=== PATIENT | male | born 1940 | race Caucasian/White ===

== ENCOUNTER 2017-04-01 09:25 | Inpatient (IN) | payer OTHER, MEDICARE ==
[2017-04-01] VITALS (15 sets, daily range): BP systolic 118–143; BP diastolic 73–98; PULSE 64–85; RESP 16–20; TEMP 98–98.5; O2SAT 89–99
[~2017-04-01] VITALS: Ht 160 cm; Wt 79.5 kg
--- NOTE | 2017-04-01 10:09 | RADRPT ---
EXAM DATE/TIME: 04/01/2017 09:58 [place] COMPARISON: No previous studies available for comparison. INDICATIONS : Short of breath, Weakness MEDICAL HISTORY : told he has a heart blockage, nuclear med scan SURGICAL HISTORY : CABG. ENCOUNTER: Initial ACUITY: 1 day PAIN SCORE: 0/10 LOCATION: Bilateral chest FINDINGS: Portable AP view of the chest demonstrates mildly enlarged cardiac silhouette in this patient post me shanika sternotomy and CABG. There are calcified nodules in the right upper and right lower lung zone an d possibly in the left midlung zone as well. There is mild interstitial prominence in the lower lung zones. No effusion or pneumothorax is present. CONCLUSION: 1. Interstitial prominence in the lower lung zones bilaterally could be related to atelectasis or cou ld represent mild interstitial edema. 2. Mildly enlarged cardiac silhouette in this patient post CABG. 3. Multiple nodules likely representing granulomas from prior granulomatous infection. Jez Gonzalez MD on April 01, 2017 at 10:06 Board Certified Radiologist. This report was verified electronically.
[2017-04-01 10:30] LABS: AUTOMATED NEUTROPHIL # 4.8 TH/MM3 (1.8-7.7); BASOPHIL # 0.1 TH/MM3 (0-0.2); EOSINOPHIL # 0.1 TH/MM3 (0-0.4); EOSINOPHIL % 1.1 % (0.0-4.0); HEMATOCRIT 39.8 % (39.0-51.0); HEMO FLAGS DIFF FINAL; LYMPH % 25.4 % (9.0-44.0); LYMPHOCYTE # 1.9 TH/MM3 (1.0-4.8); MEAN CELL VOLUME 88.7 FL (80.0-100.0); MEAN CORPUSCULAR HGB CONC 34.9 % (32.0-36.0); MONO % 9.2 % (0.0-8.0); NEUT % 63.3 % (16.0-70.0); PLATELET COUNT 238 TH/MM3 (150-450); RED BLOOD COUNT 4.49 MIL/MM3 (4.50-5.90); RED CELL DISTRIBUTION WIDTH 13.2 % (11.6-17.2); WHITE BLOOD COUNT 7.5 TH/MM3 (4.0-11.0)
[2017-04-01 10:38] LABS: APTT (PATIENT) 31.9 SEC (24.3-30.1); INTERNATIONAL NORMALIZED RATIO 1.1 RATIO; PROTHROMBIN TIME - PATIENT 12.2 SEC (9.8-11.6)
[2017-04-01] MEDS ORDERED: ENAL20TA PO (10:39)
[2017-04-01] MEDS ORDERED: NITR1SUB3 SL (10:39)
[2017-04-01] MEDS ORDERED: CLON0.1T PO (10:39)
[2017-04-01] MEDS ORDERED: CLON0.5T PO (10:39)
[2017-04-01] MEDS ORDERED: MAPA500T PO (10:39)
[2017-04-01] MEDS ORDERED: VERA80TA PO (10:39)
[2017-04-01] MEDS ORDERED: ASPI81CH CHEW (10:39)
[2017-04-01] MEDS ORDERED: SENN8.6T81 PO (10:39)
[2017-04-01] MEDS ORDERED: PLAV75TA29 PO (10:39)
[2017-04-01] MEDS ORDERED: METF1000 PO (10:39)
[2017-04-01 10:53] LABS: ANION GAP 10 MEQ/L (5-15); BICARBONATE 21.4 MEQ/L (21.0-32.0); BLOOD UREA NITROGEN 9 MG/DL (7-18); CHLORIDE 106 MEQ/L (98-107); GLOMERULAR FILTRATION RATE 68 ML/MIN (>89); POTASSIUM 4.2 MEQ/L (3.5-5.1); SODIUM (NA) 137 MEQ/L (136-145)
[2017-04-01 10:57] LABS: CREATINE KINASE 108 U/L (39-308)
[2017-04-01 11:12] LABS: CKMB 2.9 NG/ML (0.5-3.6)
[2017-04-01] MEDS ORDERED: HEPARIN-D5W 25,000 U/250 ML 250 ML IV ONE (11:15)
[2017-04-01] MEDS ORDERED: HEPARIN SODIUM - IV 10,000 UNITS/10 ML VIAL IV ONE (11:15)
[2017-04-01] MEDS ORDERED: NITROGLYCERIN-D5W 50 MG/250 ML 250 ML IV PRN (11:15)
--- NOTE | 2017-04-01 11:36 | PD ---
HPI Chief Complaint: Chest Pain Time Seen by Provider: 09:45 Travel History International Travel<30 days: No Contact w/Intl Traveler<30days: No Traveled to known affect area: No History of Present Illness HPI 76-year-old male came to the emergency room after he was asked by his solder sprayer to come to the ER to possibly have a cardiac catheterization. Patient says that he's been having progressive symptoms of chest pain and shortness of breath upon exertion thus worsening. Patient says lately even taking a few steps makes his symptoms come. He had a stress test 2 weeks ago that he failed. He sees Dr. Chatterjee as his solder sprayer. When I was talking to him he said he was chest pain-free but he said as soon as he would stand up and started walking the pain would come back. No history of syncopal episode. Patient has had cardiac bypass 15-20 years ago. Last time he was in [place] was in 1983. There was no old EKG to compare. Vital signs were otherwise stable. [facility] Past Medical History Narrative Medical List of his past medical, surgical, social and family history is reviewed from the nursing note. Hx Anticoagulant Therapy: Yes (PLAVIX) Cardiac Catheterization: Yes (X1) Cardiovascular Problems: Yes (DE) Coronary Artery Disease: Yes Diabetes: Yes Patient Takes Glucophage: Yes Diminished Hearing: Yes (hearing aids) Hypertension: Yes Myocardial Infarction: Yes (X1 IN 2008) Tetanus Vaccination: < 5 Years Influenza Vaccination: Yes Past Surgical History Coronary Artery Bypass Graft: Yes (X4 VESSELS) Social History Alcohol Use: No Tobacco Use: No Substance Use: No Allergies-Medications (Allergen,Severity, Reaction): Coded Allergies: Sulfa (Sulfonamide Antibiotics) (Verified Allergy, Severe, Hives, 04/01/17 ) hydrocodone (Verified Adverse Reaction, Severe, Hallucinations, 04/01/17) metoprolol (Verified Adverse Reaction, Severe, Joint Pain, 04/01/17) niacin (Verified Adverse Reaction, Severe, Chest Pain, 04/01/17) potassium chloride (Verified Adverse Reaction, Severe, Chest Pain, ) Bxmuydv-Izx-Aet Reductase Inhibitor (Verified Adverse Reaction, Intermediate, Dehydration, 04/01/17) amlodipine (Verified Adverse Reaction, Intermediate, Joint Pain, 04/01/17) cholecalciferol (vitamin D3) (Verified Adverse Reaction, Unknown, 04/01/17 ) Uncoded Allergies: MULTIVITAMIN (Adverse Reaction, Intermediate, Migraine, 04/01/17) Comments List of his allergies reviewed from the nursing note. Reported Meds & Prescriptions Reported Meds & Active Scripts Active Reported Clonazepam 0.5 Mg Tab 0.5 Mg PO BID Nitroglycerin SL (Nitroglycerin) 0.4 Mg Subl 0.4 Mg SL DIRECTED PRN ONE TABLET UNDER THE TONGUE NEEDED FOR CHEST PAIN, MAY REPEAT EVERY FIVE MINUTES FOR A TOTAL OF 3 DOSES OR CALL 911 IF NO RELIEF Mapap (Acetaminophen) 500 Mg Tab 500 Mg PO Q4-6H PRN Clonidine (Clonidine HCl) 0.1 Mg Tab 0.1 Mg PO BID Sennosides 8.6 Mg Tab 8.6 Mg PO BID Enalapril (Enalapril Maleate) 20 Mg Tab 20 Mg PO DAILY Aspirin 81 Mg Chew 81 Mg CHEW DAILY Verapamil (Verapamil HCl) 80 Mg Tab 80 Mg PO BID Metformin (Metformin HCl) 1,000 Mg Tab 1,000 Mg PO HS Plavix (Clopidogrel Bisulfate) 75 Mg Tab 75 Mg PO HS Narrative Medication List of his home medications reviewed from the nursing note. Review of Systems Except as stated in HPI: all other systems reviewed are Neg Cardiovascular: Positive: Chest Pain or Discomfort, Dyspnea on exertion Physical Exam Narrative GENERAL: Awake, alert, no obvious distal SKIN: Focused skin assessment warm/dry. HEAD: Atraumatic. Normocephalic. EYES: Pupils equal and round. No scleral icterus. No injection or drainage. ENT: No nasal bleeding or discharge. Mucous membranes pink and moist. NECK: Trachea midline. No JVD. CARDIOVASCULAR: Regular rate and rhythm. No murmur appreciated. RESPIRATORY: No accessory muscle use. Bibasilar crackles GASTROINTESTINAL: Abdomen soft, non-tender, nondistended. Hepatic and splenic margins not palpable. MUSCULOSKELETAL: No obvious deformities. No clubbing. No cyanosis. No edema. NEUROLOGICAL: Awake and alert. No obvious cranial nerve deficits. Motor grossly within normal limits. Normal speech. PSYCHIATRIC: Appropriate mood and affect; insight and judgment normal. Data Data Last Documented VS Vital Signs Date Time Temp Pulse Resp B/P (MAP) Pulse Ox O2 Delivery O2 Flow Rate FiO2 04/01/17 10:44 73 16 140/84 (102) 96 Room Air 04/01/17 09:27 98.4 Orders Orders Electrocardiogram (04/01/17 09:45) Basic Metabolic Panel (Bmp) (04/01/17 09:45) Ckmb (Isoenzyme) Profile (04/01/17 09:45) Complete Blood Count With Diff (04/01/17 09:45) Magnesium (Mg) (04/01/17 09:45) Prothrombin Time / Inr (Pt) (04/01/17 09:45) Act Partial Throm Time (Ptt) (04/01/17 09:45) Troponin I (04/01/17 09:45) Chest, Single Ap (04/01/17 09:45) Ecg Monitoring (04/01/17 09:45) Bilateral Bp Monitoring (04/01/17 09:45) Iv Access Insert/Monitor (04/01/17 09:45) Oximetry (04/01/17 09:45) Oxygen Administration (04/01/17 09:45) ^ Saline Lock (04/01/17 09:47) CKMB (04/01/17 10:10) CKMB% (04/01/17 10:10) Heparin Infusion PIO.Q1H (04/01/17 11:05) Heparin Inj (Heparin Inj) (04/01/17 11:15) Heparin Inj (Heparin Inj) (04/01/17 17:15) Heparin Inj (Heparin Inj) (04/01/17 17:15) Heparin-D5w 25,000 U/250 Ml (Heparin-D5w (04/01/17 11:15) Act Partial Throm Time (Ptt) (04/01/17 11:05) Cbc No Diff, Includes Plts (04/01/17 11:05) Cbc No Diff, Includes Plts (04/04/17 06:00) Act Partial Throm Time (Ptt) (04/01/17 18:05) Occult Blood (Hemoccult) Stool (04/01/17 11:05) Nitroglycerin-D5w 50 Mg/250 Ml (Nitrogly (04/01/17 11:15) Labs Laboratory Tests Test 04/01/17 10:10 White Blood Count 7.5 TH/MM3 Red Blood Count 4.49 MIL/MM3 Hemoglobin 13.9 GM/DL Hematocrit 39.8 % Mean Corpuscular Volume 88.7 FL Mean Corpuscular Hemoglobin 31.0 PG Mean Corpuscular Hemoglobin Concent 34.9 % Red Cell Distribution Width 13.2 % Platelet Count 238 TH/MM3 Mean Platelet Volume 7.3 FL Neutrophils (%) (Auto) 63.3 % Lymphocytes (%) (Auto) 25.4 % Monocytes (%) (Auto) 9.2 % Eosinophils (%) (Auto) 1.1 % Basophils (%) (Auto) 1.0 % Neutrophils # (Auto) 4.8 TH/MM3 Lymphocytes # (Auto) 1.9 TH/MM3 Monocytes # (Auto) 0.7 TH/MM3 Eosinophils # (Auto) 0.1 TH/MM3 Basophils # (Auto) 0.1 TH/MM3 CBC Comment DIFF FINAL Differential Comment Prothrombin Time 12.2 SEC Prothromb Time International Ratio 1.1 RATIO Activated Partial Thromboplast Time 31.9 SEC Blood Urea Nitrogen 9 MG/DL Creatinine 1.07 MG/DL Random Glucose 108 MG/DL Calcium Level 8.9 MG/DL Magnesium Level 2.0 MG/DL Sodium Level 137 MEQ/L Potassium Level 4.2 MEQ/L Chloride Level 106 MEQ/L Carbon Dioxide Level 21.4 MEQ/L Anion Gap 10 MEQ/L Estimat Glomerular Filtration Rate 68 ML/MIN Total Creatine Kinase 108 U/L Creatine Kinase MB 2.9 NG/ML Troponin I 0.60 NG/ML MDM Medical Decision Making Medical Screen Exam Complete: Yes Emergency Medical Condition: Yes Medical Record Reviewed: Yes Interpretation(s) Twelve-lead EKG was reviewed by me. Normal sinus rhythm, normal axis, possible left bundle branch block, inferior T wave inversions. Heart rate of 69 bpm. Differential Diagnosis Stable angina, non-STEMI, ACS Narrative Course 11:34 AM blood test shows elevated troponin. I have contacted Dr. Chatterjee by sending a text electronically. He responded and I have made him aware of the elevated troponin. Patient was started on heparin bolus and drip and nitro drip. Awaiting for the hospitalist to call back for admission. Patient should be admitted to the CICU. Rest of the blood test results are within normal limits. Chest x-ray suggestive of some fluid overload especially in the bases were it clinically correlates with the crackles I had heard. I'll give him 40 mg of IV Lasix as well. Patient had already taken aspirin at home today. Critical Care Narrative Aggregate critical care time was 45 minutes. Time to perform other separately billable procedures was not included in the critical care time. My time did not include minutes spent treating any other patients simultaneously or on activities that did not directly contribute to the patient's treatment. The services I provided to this patient were to treat and/or prevent clinically significant deterioration that could result in: Non-STEMI, heparin bolus and drip, nitro drip I provided critical care services requiring my management, as noted below: Chart data review, documentation time, medication orders and management, vital sign assessments/reviewing monitor data, ordering and reviewing lab tests, ordering and interpreting/reviewing x-rays and diagnostic studies, care of the patient and discussion of the patient with the admitting physicians. Procedures EKG Prior to Arrival: No Diagnosis Primary Impression: Non-STEMI (non-ST elevated myocardial infarction) Additional Impression: CHF (congestive heart failure) Qualified Codes: I50.9 - Heart failure, unspecified Admitting Information Admitting Physician Requests: Debra Larry MD Apr 01, 2017 11:36
[2017-04-01] MEDS ORDERED: FUROSEMIDE 40 MG/4 ML VIAL IV PUSH ONE (12:15)
[2017-04-01] MEDS ORDERED: ALPRAZolam 0.5 MG TAB PO ONE (12:15)
[2017-04-01] MEDS ORDERED: SODIUM CHLORIDE 0.9% FLUSH 10 ML FLUSH IV FLUSH PRN (12:15)
[2017-04-01] MEDS ORDERED: GLUCAGON 1 MG/ML VIAL OTHER PRN (15:00)
[2017-04-01] MEDS ORDERED: DEXTROSE 50% IN WATER 50 ML VIAL(D50) IV PUSH PRN (15:00)
--- NOTE | 2017-04-01 15:00 | HHI.HP ---
HPI Service [facility] Primary Care Physician Non-Staff Admission Diagnosis non-STEMI, CHF Diagnoses: Chief Complaint: Shortness of breath and chest pain with minimal exertion. Sent in by human resources psychologist. Travel History International Travel<30 Days: No Contact w/Intl Traveler <30 Da: No Traveled to Known Affected Are: No History of Present Illness 76-year-old male with a medical history significant for coronary artery disease status post CABG, diabetes, hypertension who presented to the hospital with complaint of worsening shortness of breath and chest pain with minimal activity. The patient reports he started having chest discomfort and shortness of breath with activities about a month ago but it has been increasing in severity. He has taken nitroglycerin with some relief. His symptoms became worse today and he called his human resources psychologist office who referred him to the emergency room. He is chest pain-free at rest but gets significant chest pressure and shortness of breath with minimal activities, even with light walking. Evaluation in the emergency room revealed elevated cardiac enzymes. Review of Systems Constitutional: DENIES: Fever, Chills Respiratory: COMPLAINS OF: Shortness of breath, DENIES: Cough, Wheezing Cardiovascular: COMPLAINS OF: Chest pain, Dyspnea on Exertion, Orthopnea Except as stated in HPI: all other systems reviewed are Neg Past Family Social History Past Medical History Hypertension Coronary artery disease status post CABG in 2008 Diabetes Past Surgical History CABG Reported Medications Reported Meds & Active Scripts Active Reported Clonazepam 0.5 Mg Tab 0.5 Mg PO BID Nitroglycerin SL (Nitroglycerin) 0.4 Mg Subl 0.4 Mg SL DIRECTED PRN ONE TABLET UNDER THE TONGUE NEEDED FOR CHEST PAIN, MAY REPEAT EVERY FIVE MINUTES FOR A TOTAL OF 3 DOSES OR CALL 911 IF NO RELIEF Mapap (Acetaminophen) 500 Mg Tab 500 Mg PO Q4-6H PRN Clonidine (Clonidine HCl) 0.1 Mg Tab 0.1 Mg PO BID as needed for SBP greater than 160. Sennosides 8.6 Mg Tab 8.6 Mg PO BID Enalapril (Enalapril Maleate) 20 Mg Tab 20 Mg PO DAILY Aspirin 81 Mg Chew 81 Mg CHEW DAILY Verapamil (Verapamil HCl) 80 Mg Tab 80 Mg PO BID Metformin (Metformin HCl) 1,000 Mg Tab 1,000 Mg PO HS Plavix (Clopidogrel Bisulfate) 75 Mg Tab 75 Mg PO HS Allergies: Coded Allergies: Sulfa (Sulfonamide Antibiotics) (Verified Allergy, Severe, Hives, 04/01/17 ) hydrocodone (Verified Adverse Reaction, Severe, Hallucinations, 04/01/17) metoprolol (Verified Adverse Reaction, Severe, Joint Pain, 04/01/17) niacin (Verified Adverse Reaction, Severe, Chest Pain, 04/01/17) potassium chloride (Verified Adverse Reaction, Severe, Chest Pain, ) Crvpmga-Fso-Xbt Reductase Inhibitor (Verified Adverse Reaction, Intermediate, Dehydration, 04/01/17) amlodipine (Verified Adverse Reaction, Intermediate, Joint Pain, 04/01/17) cholecalciferol (vitamin D3) (Verified Adverse Reaction, Unknown, 04/01/17 ) Uncoded Allergies: MULTIVITAMIN (Adverse Reaction, Intermediate, Migraine, 04/01/17) Family History Father with history of stroke Mother with history of heart disease Social History Patient does not smoke tobacco or use illicit drugs. He reports that he likes to drink beer sometimes 2-3 a day but hasn't had anything to drink for the past week. Physical Exam Vital Signs Vital Signs Date Time Temp Pulse Resp B/P (MAP) Pulse Ox O2 Delivery O2 Flow Rate FiO2 04/01/17 14:31 68 16 121/73 (89) 99 Room Air 04/01/17 13:59 95 21 04/01/17 13:43 70 16 139/83 (101) 95 Room Air 04/01/17 12:30 68 20 137/81 (99) 96 Room Air 04/01/17 11:43 75 143/84 04/01/17 11:36 73 16 143/84 (103) 96 Room Air 04/01/17 10:44 73 16 140/84 (102) 96 Room Air 04/01/17 10:10 20 94 Room Air 04/01/17 09:27 98.4 85 16 143/98 (113) 95 Physical Exam GENERAL: This is a well-nourished, well-developed patient, in no apparent distress. EYES: Pupils equal round and reactive. Extraocular motions intact. No scleral icterus. No injection or drainage. ENT: Nose without bleeding, purulent drainage or septal hematoma. Throat without erythema, tonsillar hypertrophy or exudate. Uvula midline. Airway patent. NECK: Trachea midline. No JVD or lymphadenopathy. Supple, nontender, no meningeal signs. CARDIOVASCULAR: 3/6 CORNELL murmur best heard over the right upper sternal border. Regular rate and rhythm without murmurs, gallops, or rubs. RESPIRATORY: Clear to auscultation. Breath sounds equal bilaterally. No wheezes , rales, or rhonchi. GASTROINTESTINAL: Abdomen soft, non-tender, nondistended. No hepato-splenomegaly , or palpable masses. No guarding. MUSCULOSKELETAL: Extremities without clubbing, cyanosis, or edema. No joint tenderness, effusion, or edema noted. NEUROLOGICAL: Awake and alert. Cranial nerves II through XII intact. Motor and sensory grossly within normal limits. Five out of 5 muscle strength in all muscle groups. Normal speech. Laboratory Laboratory Tests Test 04/01/17 10:10 White Blood Count 7.5 Red Blood Count 4.49 Hemoglobin 13.9 Hematocrit 39.8 Mean Corpuscular Volume 88.7 Mean Corpuscular Hemoglobin 31.0 Mean Corpuscular Hemoglobin Concent 34.9 Red Cell Distribution Width 13.2 Platelet Count 238 Mean Platelet Volume 7.3 Neutrophils (%) (Auto) 63.3 Lymphocytes (%) (Auto) 25.4 Monocytes (%) (Auto) 9.2 Eosinophils (%) (Auto) 1.1 Basophils (%) (Auto) 1.0 Neutrophils # (Auto) 4.8 Lymphocytes # (Auto) 1.9 Monocytes # (Auto) 0.7 Eosinophils # (Auto) 0.1 Basophils # (Auto) 0.1 CBC Comment DIFF FINAL Differential Comment Prothrombin Time 12.2 Prothromb Time International Ratio 1.1 Activated Partial Thromboplast Time 31.9 Blood Urea Nitrogen 9 Creatinine 1.07 Random Glucose 108 Calcium Level 8.9 Magnesium Level 2.0 Sodium Level 137 Potassium Level 4.2 Chloride Level 106 Carbon Dioxide Level 21.4 Anion Gap 10 Estimat Glomerular Filtration Rate 68 Total Creatine Kinase 108 Creatine Kinase MB 2.9 Troponin I 0.60 B-Type Natriuretic Peptide 666 Result Diagram: 04/01/17 1010 04/01/17 1010 Imaging Last Impressions Chest X-Ray 04/01/17 0972 Signed Impressions: Service Date/Time: March 09:58 - CONCLUSION: 1. Interstitial prominence in the lower lung zones bilaterally could be related to atelectasis or could represent mild interstitial edema. 2. Mildly enlarged cardiac silhouette in this patient post CABG. 3. Multiple nodules likely representing granulomas from prior granulomatous infection. MD Sebastian Talbert VTE Risk Assessment [place] VTE Risk Assessment: Mod/High Risk (score >= 2) Caprini Risk Assessment Model Point Value = 1 Point Value = 2 Point Value = 3 Point Value = 5 Age 41-60 Minor surgery BMI > 25 kg/m2 Swollen legs Varicose veins or History of unexplained or recurrent spontaneous Oral contraceptives or hormone replacement Sepsis (< 1 month) Serious lung disease, including pneumonia (< 1 month) Abnormal pulmonary function Acute myocardial infarction Congestive heart failure (< 1 month) History of inflammatory bowel disease Medical patient at bed rest Age 61-74 Arthroscopic surgery Major open surgery (> 45 min) Laparoscopic surgery (> 45 min) Malignancy Confined to bed (> 72 hours) Immobilizing plaster cast Central venous access Age >= 75 History of VTE Family history of VTE Factor V Leiden Prothrombin [id number] Lupus anticoagulant Anticardiolipin antibodies Elevated serum homocysteine Heparin-induced thrombocytopenia Other congenital or acquired thrombophilia Stroke (< 1 month) Elective arthroplasty Hip, pelvis, or leg fracture Acute spinal cord injury (< 1 month) Prophylaxis Regimen Total Risk Factor Score Risk Level Prophylaxis Regimen 0-1 Low Early ambulation 2 Moderate Order ONE of the following: *Sequential Compression Device (SCD) *Heparin 5000 units SQ BID 3-4 Higher Order ONE of the following medications: *Heparin 5000 units SQ TID *Enoxaparin/Lovenox 40 mg SQ daily (WT < 150 kg, CrCl > 30 mL/min) *Enoxaparin/Lovenox 30 mg SQ daily (WT < 150 kg, CrCl > 10-29 mL/min) *Enoxaparin/Lovenox 30 mg SQ BID (WT < 150 kg, CrCl > 30 mL/min) AND/OR *Sequential Compression Device (SCD) 5 or more Highest Order ONE of the following medications: *Heparin 5000 units SQ TID (Preferred with Epidurals) *Enoxaparin/Lovenox 40 mg SQ daily (WT < 150 kg, CrCl > 30 mL/min) *Enoxaparin/Lovenox 30 mg SQ daily (WT < 150 kg, CrCl > 10-29 mL/min) *Enoxaparin/Lovenox 30 mg SQ BID (WT < 150 kg, CrCl > 30 mL/min) AND *Sequential Compression Device (SCD) Assessment and Plan Problem List: (1) Hypertension ICD Code: I10 - Essential (primary) hypertension (2) Diabetes ICD Code: E11.9 - Type 2 diabetes mellitus without complications (3) Non-STEMI (non-ST elevated myocardial infarction) ICD Code: I21.4 - Non-ST elevation (NSTEMI) myocardial infarction Status: Acute (4) CHF (congestive heart failure) ICD Code: I50.9 - Heart failure, unspecified Status: Acute Assessment and Plan 76-year-old male admitted with NSTEMI, CHF. NSTEMI: Symptoms consistent with unstable angina, cardiac enzymes elevated. EKG reveals ST depression in the anteroseptal leads. - Heparin drip per protocol. - Cardiology consulted - Continue aspirin. Patient is allergic to statin and metoprolol. Continue to trend cardiac enzymes and serial EKGs. Nitroglycerin and morphine as needed for pain. CHF: Elevated BNP, chest x-ray reviewed, consistent with congestive failure. May be secondary to ischemia noted above. Patient also drinks alcohol which may contribute to cardiomyopathy. - Status post 1 dose of 40 mg IV Lasix. Continue with 20 g IV twice a day. - Cardiology consulted - Obtain 2-D echocardiogram Diabetes: - Hold metformin. - Sliding scale insulin with Accu-Cheks. GI prophylaxis:Stool softener PRN constipation. DVT PPx: On heparin Discussed Condition With Dr. Hartman. Physician Certification 2 Midnight Certification Type: Admission for Inpatient Services Order for Inpatient Services The services are ordered in accordance with Medicare regulations or non- Medicare payer requirements, as applicable. In the case of services not specified as inpatient-only, they are appropriately provided as inpatient services in accordance with the 2-midnight benchmark. Estimated LOS (days): 3 days is the estimated time the patient will need to remain in the hospital, assuming treatment plan goals are met and no additional complications. Post-Hospital Plan: Home Problem Qualifiers (1) CHF (congestive heart failure): Qualified Codes: I50.9 - Heart failure, unspecified Zoe Cooper MD Apr 01, 2017 15:00
[2017-04-01] MEDS ORDERED: HEPARIN-NS/PF INJ 1,000 ML ONE (15:39)
[2017-04-01] MEDS ORDERED: MIDAZOLAM HCL 2 MG/2 ML VIAL ONE ×2 (15:46→16:09)
[2017-04-01] MEDS ORDERED: NITROGLYCERIN INJ 5 ML ONE (16:39)
[2017-04-01] MEDS ORDERED: HEPARIN SODIUM - IV 10,000 UNITS/10 ML VIAL ONE (16:39)
[2017-04-01] MEDS ORDERED: VERAPAMIL HCL 5 MG/2 ML VIAL ONE (16:40)
[2017-04-01] MEDS ORDERED: HEPARIN SODIUM - IV 10,000 UNITS/10 ML VIAL IV PRN ×2 (17:15)
--- NOTE | 2017-04-01 17:17 | CATHPROC ---
[facility] HIS Report Study Information Study Number Admission Scheduled Start Study Start [id number] Apr 01 2017 12:04PM 04/01/2017 Apr 01 2017 1:22PM [place] Service Cardiac Catheterization Admit Source Facility Department Emergency department [facility] - Plant Health Care Technician Physician and Clinical Staff Initial MD Cardoza, Eleuterio Matchbook Maker Lary Mcdaniel,COLT Other cathlab, cathlab Recorder José Antonio Vang RCIS(BS) Scrub Keshawn GriffithRT(R) Procedures Performed Procedure Location (Site) Vessel Name Coronary Angiograms LCA Left Coronary Coronary Angiograms RCA Right Coronary Coronary Angiograms BURKS-LAD Left Coronary Coronary Angiograms SVG-OM CIRC Coronary Angiograms Gft. Stump 1 SVG Graft Coronary Angiograms Gft. Stump 2 SVG Graft L Heart Cath LV Gram-hand inj. LV LV Ventricle Wire insertion Fem Art (right) Femoral Art Equipment Time Oxygen Equipment Aide Description Size Mfg Part Number Used/Scraped TRANSDUCER, TRUWAVE [id number] 16:07 QUINTANA PAGE * Used W/FILI *[id number] 17:00 CARDIVA MEDICAL VASCADE, FR5 CLOSURE SYSTEM FR 5 Used *[id number]- INTRODUCER SET, 16:07 [employer]. FR 5 SC-NT-U-SST Used MICROPUNCTURE, STIFFENED *[id number] WIRE, GUIDE AMPLATZ STIFF 16:53 COOK/FATIMAH 260CM [id number] Used 260CM 534-545T *[id number] 534-560T *[id number] 534-520T *[id number] 534-521T *[id number] 534-542T *[id number] 534-552S *[id number] 16:07 [employer] IND[employer]RIES PACK, CCL CUSTOM * Used *[id number] BAND, RADIAL COMPRESSION TR [id number] 17:03 Likez MEDICAL 24CM Used SHORT 24 *[id number] 16:07 LiveU WIRE, 3MMJ .035 180CM 180CM Used *[id number] 16:07 NAMIC MANIFOLD, 4 PORT * Used *[id number] 16:07 NYCOMED OMNIPAQUE, 350 MG, 150ML 150ML [id number] Used [id number] 16:07 ARANGO MED[employer] BLANKET,WARM AIR CCL * Used *[id number] 16:07 TERUMO MEDICAL SHEATH, FR5 TERUMO (10CM) FR 5 Used *[id number] SHEATH, FR6 TRANSRADIAL [id number] 16:37 TERUMO MEDICAL FR 6 Used SLENDER 10CM *[id number] WIRE, ANGLE GLIDE STIFF .035 16:18 TERUMO MEDICAL/FATIMAH 260CM [id number] Used 260CM History: Current Medications Medication Dosage/Unit Route Frequency Last Date/Time Taken NTG SL CLONIDINE Statins (any) ASA PLAVIX History: Allergies Allergy Reaction Sulfa (Sulfonamide Antibiotics) Hives Qhoywmk-Lpl-Yul Reductase Dehydration Inhibitor potassium chloride Chest Pain cholecalciferol (vitamin D3) niacin Chest Pain hydrocodone Hallucinations metoprolol Joint Pain amlodipine Joint Pain MULTIVITAMIN Migraine History: Risk Factors Family History of Hypertension Dyslipidemia Previous LA Previous Heart Failure Premature CAD Yes Yes No Yes No Prior Valve Prior PCI Prior CABG Prior CABGDate Surgery No No Yes 06/14/1995 Cerebrovascular 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 Diabetes Diabetes Therapy Disease Disease Disease No No No No Yes Oral History: Symptoms/Diagnosis Selection Items Chest pain History: CV Disease Selection Items Known CAD History: Stress Tests Stress or Imaging Studies Performed Yes Standard Exercise Stress Test No Stress Echo No Stress Test SPECT Stress Test SPECT Result Stress Test SPECT Ischemia Risk/Extent Yes Positive Low Stress Test CMR No Cardiac CTA Coronary Calcium Score No No Labs Hgb (g/dl) Hct (%) RBC (MIL/MM3) WBC (l/cumm) Platelets (thousands) 11.60-17.00 35.00-51.00 4.00-5.90 4.00-11.00 150.00-450.00 13.9 39.8 4.5 7.5 238 Glucose (mg/dl) BUN (mg/dl) Creatinine (mg/dl) BUN:Creatinine (1:x) 74.00-106.00 7.00-18.00 0.50-1.30 10.00-20.00 108 9 1.0 9 Na (meq/l) K (meq/l) Cl (meq/l) CO2 (mmol/L) Ca (mg/dl) 136.00-145.00 3.50-5.10 98.00-107.00 21.00-32.00 8.50-10.10 137 4.2 106 21.4 8.9 INR (PTT:PT) 0.90-1.10 1.1 Troponin I (ng/ml) CPK-MB (ng/ML) 0.02-0.05 0.50-3.60 0.6 2.9 Medication Medication Total Dose (Bolus/Oral) Medication Total Dosage/Unit 1% XYLOCAINE 23 mL FENTANYL 100 mcg RADIAL COCKTAIL 5 mL (Bolus) VERSED 4 mg Medications (Bolus/Oral) Medication Time Given Dosage/Unit Administered By Reason VERSED 04/01/2017 4:05:31 PM 2 mg Hesher, Lary 2 mg VERSED given in lab by Lary Mcdaniel RN in Right Forearm via Peripheral IV. Ordered by Eleuterio Brown. FENTANYL 04/01/2017 4:05:40 PM 50 mcg Hesher, Lary 50 mcg FENTANYL given in lab by Lary Mcdaniel RN in Right Forearm via Peripheral IV. Ordered by Eleuterio Arndt. 1% XYLOCAINE 04/01/2017 4:06:37 PM 20 mL Eleuterio Cardoza 20 mL 1% XYLOCAINE given in lab by Eleuterio Cardoza in Right Groin via Subcutaneous. VERSED 04/01/2017 4:09:56 PM 1 mg Hesher, Lary 1 mg VERSED given in lab by Lary Mcdaniel RN in Right Forearm via Peripheral IV. Ordered by Eleuterio Brown. FENTANYL 04/01/2017 4:10:00 PM 25 mcg Hesher, Lary 25 mcg FENTANYL given in lab by Lary Mcdaniel RN in Right Forearm via Peripheral IV. Ordered by Eleuterio Arndt. VERSED 04/01/2017 4:18:30 PM 1 mg Hesher, Lary 1 mg VERSED given in lab by Lary Mcdaniel RN in Right Forearm via Peripheral IV. Ordered by Eleuterio Brown. FENTANYL 04/01/2017 4:18:34 PM 25 mcg Hesher, Lary 25 mcg FENTANYL given in lab by Lary Mcdaniel RN in Right Forearm via Peripheral IV. Ordered by Eleuterio Arndt. 1% XYLOCAINE 04/01/2017 4:38:17 PM 3 mL Eleuterio Cardoza 3 mL 1% XYLOCAINE given in lab by Eleuterio Cardoza in Left Radial via Subcutaneous. Ntg 200mcg Verapamil 2.5mg Heparin RADIAL COCKTAIL 04/01/2017 4:40:53 PM 5 mL (Bolus) Eleuterio Cardoza 3000U 5 mL (Bolus) RADIAL COCKTAIL given in lab by Eleuterio Cardoza in Left Radial via Radial. Using [Solu tion Name]. Reason: Ntg 200mcg Verapamil 2.5mg Heparin 3000U. Medication (Drip) Medication Time Given Dosage/Unit Concentration/Unit Diluent (ml) Solution IV Solutions 04/01/2017 3:32:15 PM 0 mL (IV) 500 NaCl .9 Patient arrived on IV Solutions given by cathlabyawlab in Right Forearm via Peripheral IV. Pump/Dr ip Flow = 20 ml/hr using NaCl .9. Ordered by Eleuterio Cardoza. Initial Case Assessment Cardiovascular HR Rhythm NIBP Chest Pain 67 nsr 140/77 0 Edema Present Skin color Skin None Normal Warm Dry Circulatory - Right Pulses Dorsalis Pedis Femoral 2 2 Scale (0,1,2,3,4,d) Circulatory - Left Pulses Dorsalis Pedis Femoral 2 2 Scale (0,1,2,3,4,d) Neurological State Oriented to time-place- Alert Moves all extremities person Respiration - General Respiration Rate SpO2 (%) (B/min) 15 98 Final Case Assessment Cardiovascular HR Rhythm NIBP Chest Pain 70 nsr 145/64 0 Edema Present Skin color Skin None Normal Warm Dry Circulatory - Right Pulses Dorsalis Pedis Femoral 2 2 Scale (0,1,2,3,4,d) Circulatory - Left Pulses Dorsalis Pedis Femoral 2 2 Scale (0,1,2,3,4,d) Neurological State Oriented to time-place- Alert Moves all extremities person Respiration - General Respiration Rate SpO2 (%) (B/min) 15 98 Chronological Log Time Study Chronological Log 15:32:05 Patient arrived via Bed. 15:32:07 Patient Name, D.O.B, / Armband Verified By R.N. 15:32:07 Consent signed by the physician and the patient and verified by the Plant [facility] Care Technician staff. 15:32:08 Pre-op and post- op instructions given; patient acknowledges understanding of instructions. 15:32:08 Verbal Stimulation=2 Physical Stimulation=2 Airway=2 Respiration=2 TOTAL=8. (0=absent, 1=li mited, 2=present) 15:32:10 Presedation assessment performed by Plant [facility] Care Technician RN. 15:32:11 Immediate Presedation assesment performed by physician. 15:32:11 Patient has been NPO for More than 6Hrs. 15:32:12 Skin Breakdown- none per patient 15:32:13 Patient Warmer Placed on the Table. 15:32:14 Diana Prominences Protected 15:32:15 A # 20 IV was noted in the Forearm (right). Grade = 0 Patient arrived on IV Solutions given by cathlab, cathlab in Right Forearm via Peripheral IV. P ump/Drip Flow = 20 ml/hr 15:32:15 using NaCl .9. Ordered by Eleuterio Cardoza. 15:32:16 History and physical on the chart or being dictated. Vitals capture started with the following parameters, Patient=Adult, Interval=5 min, Initial Pr gmhtho=110 mmHg, 15:42:13 Deflation Rate=5 mmHg, Cuff placed on Right Arm 15:42:14 Reference ECG taken Assessment: Initial Case, HR=67 BPM, Rhythm=nsr, PQIN=680/77 mmhg, Chest Pain=0, Edema=None, Co ben=Normal, Skin = Warm, Dry Right Pulses: Nitish Ped=2, Femoral=2 15:42:15 Left Pulses: Nitish Ped=2, Femoral=2 Neurological: State=Alert, Ox3, CERVANTES Respiration: Resp=15 B/min, SpO2=98 % 15:42:51 HR=68 bpm, SAHZ=174/77 mmhg, SpO2=98.0 %, Resp=16 B/min, Pain=0, Alesha=10, Kwan=2 15:47:00 Bilateral groins prepped with 2% chlorhexidine, and draped after a 3 minute waiting time. 15:47:48 HR=75 bpm, YTGP=410/89 mmhg, SpO2=96.0 %, Resp=18 B/min, Pain=0, Alesha=10, Kwan=2 15:49:52 paged 15:52:19 Pressure channel 1 zeroed. 15:52:49 HR=74 bpm, RSZO=396/88 mmhg, SpO2=96.0 %, Resp=14 B/min, Pain=0, Alesha=10, Kwan=2 15:55:08 MD responded 15:57:48 HR=75 bpm, BXWI=123/86 mmhg, SpO2=97.0 %, Resp=16 B/min, Pain=0, Alesha=10, Kwan=2 16:02:51 HR=72 bpm, DCED=182/76 mmhg, SpO2=96.0 %, Resp=18 B/min 16:04:25 MD arrived. 16:04:56 Contrast Scanned 16::56 Immediate Presedation assesment performed by physician. Time Out. Correct patient, correct procedure, correct physician, power injector not loaded with contrast with surgical 16:05:20 team present. Time Out Concurred by MD and individual staff in procedure. 16:05:31 2 mg VERSED given in lab by Lary Mcdaniel, COLT in Right Forearm via Peripheral IV. Ordered by Eleuterio Cardoza. 50 mcg FENTANYL given in lab by Lary Mcdaniel, COLT in Right Forearm via Peripheral IV. Ordered by Nani 16:05:40 Eleuterio. 16:05:45 Case Start 16:05:46 Verbal Stimulation=2 Physical Stimulation=2 Airway=2 Respiration=2 TOTAL=8. (0=absent, 1=li mited, 2=present) 16:06:37 20 mL 1% XYLOCAINE given in lab by Eleuterio Cardoza in Right Groin via Subcutaneous. 16:07:37 Access site was Right Femoral Artery. 16:07:50 HR=72 bpm, TKNG=339/79 mmhg, SpO2=96.0 %, Resp=18 B/min, Pain=0, Alesha=10, Kwan=2 A INTRODUCER SET, MICROPUNCTURE, STIFFENED FR 5 was advanced into the Fem Art (right) using the 16:08:25 Percutaneous technique. A SHEATH, FR5 TERUMO (10CM) FR 5 was exchanged in the Fem Art (right). This was necessary in or jerry to 16:08:29 accomodate a larger catheter. A JR 4.0 INFINITI CATHETER FR 5 was advanced over a wire. OMNIPAQUE, 350 MG, 150ML 150ML was us ed for 16:08:57 injections. 16:09:56 1 mg VERSED given in lab by Lary McdanielCOLT in Right Forearm via Peripheral IV. Ordered by Eleuterio Cardoza. 25 mcg FENTANYL given in lab by Lary Mcdaniel RN in Right Forearm via Peripheral IV. Ordered by Nani, 16:10:00 Eleuterio. 16:10:04 The RCA was injected and visualized at various angles. OMNIPAQUE, 350 MG, 150ML 150ML used . Recorded Pressure: Ao, HR=70, Condition=Condition 1 16:10:15 (Aorta) Ao 128/67/92 16:11:46 The SVG-OM was injected and visualized at various angles. OMNIPAQUE, 350 MG, 150ML 150ML us ed. 16:12:51 HR=66 bpm, JNEI=431/73 mmhg, SpO2=92.0 %, Resp=19 B/min, Pain=0, Alesha=10, Kwan=2 16:13:30 The Gft. Stump 1 was injected and visualized at various angles. OMNIPAQUE, 350 MG, 150ML 15 0ML used. 16:14:57 A WIRE, 3MMJ .035 180CM 180CM was inserted via Fem Art (right). 16:15:39 Wire removed 16:17:49 A WIRE, ANGLE GLIDE STIFF .035 260CM 260CM was inserted via Fem Art (right). 16:17:50 HR=66 bpm, IGCQ=095/75 mmhg, SpO2=94.0 %, Resp=18 B/min, Pain=0, Alesha=10, Kwan=2 16:18:30 1 mg VERSED given in lab by Lary Mcdaniel RN in Right Forearm via Peripheral IV. Ordered by Pedro. Nani 25 mcg FENTANYL given in lab by Lary Mcdaniel RN in Right Forearm via Peripheral IV. Ordered by Nani, 16:18:34 Eleuterio. 16:18:43 Wire removed 16:20:10 Catheter was removed A NEMO INFINITI CATHETER FR 5 was advanced over a wire. OMNIPAQUE, 350 MG, 150ML 150ML was used for 16:20:10 injections. 16:21:34 A WIRE, ANGLE GLIDE STIFF .035 260CM 260CM was inserted via Fem Art (right). 16:22:37 Wire removed 16:22:51 HR=64 bpm, HOLC=430/66 mmhg, SpO2=96.0 %, Resp=16 B/min, Pain=0, Alesha=10, Kwan=2 A JL 4.0 INFINITI CATHETER FR 5 was advanced over a wire. OMNIPAQUE, 350 MG, 150ML 150ML was us ed for 16:27:42 injections. 16:27:48 HR=68 bpm, ANWN=610/80 mmhg, SpO2=95 %, Resp=16 B/min, Pain=0, Alesha=10, Kwan=2 16:28:00 The LCA was injected and visualized at various angles. OMNIPAQUE, 350 MG, 150ML 150ML used . 16:30:24 Catheter was removed A MPA-2 INFINITI CATHETER FR 5 was advanced over a wire. OMNIPAQUE, 350 MG, 150ML 150ML was use d for 16:30:24 injections. 16:31:44 The Gft. Stump 2 was injected and visualized at various angles. OMNIPAQUE, 350 MG, 150ML 15 0ML used. 16:32:02 Catheter was removed 16:33:32 HR=74 bpm, ASOX=053/70 mmhg, SpO2=98.0 %, Resp=15 B/min, Pain=0, Alesha=10, Kwan=2 16:35:07 Unable to cannulate BURKS-LAD graft from RFA access. Prepping Left Radial for access. 16:38:17 3 mL 1% XYLOCAINE given in lab by Eleuterio Cardoza in Left Radial via Subcutaneous. 16:38:48 HR=68 bpm, KEZM=679/42 mmhg, SpO2=99.0 %, Resp=16 B/min, Pain=0, Alesha=10, Kwan=2 16:40:31 Access site was Left Radial Artery. A SHEATH, FR6 TRANSRADIAL SLENDER 10CM FR 6 was advanced into the Radial (left) using the Sarah Beth pretty 16:40:43 technique. 5 mL (Bolus) RADIAL COCKTAIL given in lab by Eleuterio Cardoza in Left Radial via Radial. Using [Solution Name]. 16:40:53 Reason: Ntg 200mcg Verapamil 2.5mg Heparin 3000U. A NEMO INFINITI CATHETER FR 5 was advanced over a wire. OMNIPAQUE, 350 MG, 150ML 150ML was used for 16:42:13 injections. 16:43:00 HR=68 bpm, TGNF=632/58 mmhg, SpO2=99.0 %, Resp=16 B/min, Pain=0, Alesha=10, Kwan=2 16:46:14 The BURKS-LAD was injected and visualized at various angles. OMNIPAQUE, 350 MG, 150ML 150ML used. 16:47:59 HR=73 bpm, HVKJ=550/52 mmhg, SpO2=95.0 %, Resp=16 B/min, Pain=0, Alesha=10, Kwan=2 16:50:03 Catheter was removed 16:52:58 HR=73 bpm, IMUU=502/54 mmhg, SpO2=96.0 %, Resp=31 B/min, Pain=0, Alesha=10, Kwan=2 A AL 1 INFINITI CATHETER FR 5 was advanced over a wire. OMNIPAQUE, 350 MG, 150ML 150ML was used for 16:53:28 injections. 16:53:34 A WIRE, GUIDE AMPLATZ STIFF 260CM 260CM was inserted via Fem Art (right). After removing the current catheter a PIGTAIL ANG. INFINITI CATHETER FR 5 was advanced over a W CHRISTY, GUIDE 16:55:41 AMPLATZ STIFF 260CM 260CM. Recorded Pressure: LV, HR=75, Condition=Condition 1 16:57:26 (Left Ventricle) LV 171/8/29 16:57:39 The LV was manually injected with 10 cc's and visualized. OMNIPAQUE, 350 MG, 150ML 150ML us ed. 16:57:59 HR=75 bpm, JDYS=252/55 mmhg, SpO2=98.0 %, Resp=16 B/min, Pain=0, Alesha=10, Kwan=2 Recorded Pressure: LV, Ao, HR=79, Condition=Condition 1 16:58:38 (Left Ventricle) LV 158/15/27, (Aorta) Ao 123/61/87 16:58:57 Catheter was removed 17:00:23 VASCADE, FR5 CLOSURE SYSTEM FR 5 placement in the Fem Art (right) 17:02:58 HR=76 bpm, WSTK=450/64 mmhg, SpO2=99.0 %, Resp=16 B/min, Pain=0, Alesha=10, Kwan=2 Radial Compression Device Used. 11 mLs of air placed in BAND, RADIAL COMPRESSION TR SHORT 24 2 4CM. Affected 17:03:11 hand 94 % O2 saturation. 17:06:31 Case End Assessment: Final Case, HR=70 BPM, Rhythm=nsr, UQLO=492/64 mmhg, Chest Pain=0, Edema=None, Col or=Normal, Skin = Warm, Dry Right Pulses: Nitish Ped=2, Femoral=2 17:06:34 Left Pulses: Nitish Ped=2, Femoral=2 Neurological: State=Alert, Ox3, CERVANTES Respiration: Resp=15 B/min, SpO2=98 % 17:06:49 Sterile dressing applied to site 17:06:49 No case complications noted. 17:06:50 Cine recording checked. 17:06:52 Bedside Report will be given. 17:06:53 Implantable Device card placed in patient's chart. 17:06:54 Contrast Scanned 17:06:54 Verbal Stimulation=2 Physical Stimulation=2 Airway=2 Respiration=2 TOTAL=8. (0=absent, 1=l imited, 2=present) 17:07:03 A Left Heart Cath was performed. 17:08:03 HR=68 bpm, DZWW=038/52 mmhg, SpO2=95 %, Resp=16 B/min, Pain=0, Alesha=10, Kwan=2 17:10:54 Patient moved to [facility] End Study - Contrast Media Used In Study Contrast Total Opened (mL) Total Used (mL) Total Wasted (mL) Omnipaque 115 115 0 End Study - Maximum Contrast Load Max Contrast Load (mL) 410.0 End Study - Radiation Exposure Fluoro Time (minutes) 21.5 End Study - Patient Disposition Complications Transferred To Interventional Outcome No Critical Care Bed No attempt made
--- NOTE | 2017-04-01 18:01 | MB ---
cc: KAREN BLAKE DATE OF CONSULTATION 04/01/17 1940 REASON FOR CONSULTATION Chest pain. HISTORY OF PRESENT ILLNESS 76-year-old male with past medical history significant for coronary artery disease status post coronary artery bypass graft times four, diabetes, hypertension, hyperlipidemia, aortic valve stenosis who presented to the hospital with one month of chest pain. The patient was seen recently in the office by me. At that time, he was complaining of chest pain on exertion. No EKG changes. A stress test was performed which showed was positive for ischemia in the anterior wall. The patient was scheduled for an elective heart cath, however, he presented to the emergency department today with chest pain. The patient reports chest pain with minimal activity associated with shortness of breath. He states that chest pain gets better with nitroglycerin. He denies fevers, chills, nausea, vomiting, diarrhea, syncope, bleeding or leg edema. The patient has been consulted to cardiology for further management and evaluation. First set of cardiac markers - his troponin is 0.6. EKG - no significant acute ST changes. REVIEW OF SYSTEMS Negative except for what is mentioned in HPI. PAST MEDICAL HISTORY 1. Hypertension, 2. Diabetes 3. Coronary artery disease status post coronary artery bypass graft in 2008, 4. Aortic Valve Stenosis PAST SURGICAL HISTORY Coronary artery bypass graft MEDICATIONS Cardiac home medications 1. Nitroglycerin sublingual p.r.n. for chest pain, 2. Clonidine 0.1 mg p.o. b.i.d. 3. Enalapril 20 mg p.o. daily, 4. Aspirin 81 mg p.o. daily 5. Verapamil 80 mg p.o. b.i.d. 6. Plavix 75 mg p.o. daily ALLERGIES SULFA HYDROCODONE METOPROLOL NIACIN POTASSIUM CHLORIDE STATINS AMLODIPINE CHOLECALCIFEROL FAMILY HISTORY Father with a history of stroke. Mother with history of heart disease. SOCIAL HISTORY The patient denies tobacco abuse or illicit drug use. He does drink alcohol two to three times a day. PHYSICAL EXAMINATION VITAL SIGNS: Temperature 97, respiratory rate 16, heart rate 70, blood pressure 142/84, O2 sat 99% room air. GENERAL: Awake, alert, oriented times three in no acute distress. NECK: No JVD or carotid bruits. HEART: Regular rate and rhythm. No rubs or gallops appreciated. There is a 2/ 6 systolic ejection murmur. LUNGS: No wheezes, rhonchi or rales. clear to auscultation bilaterally. ABDOMEN: Benign. EXTREMITIES: No cyanosis or edema. Pulses throughout. LABORATORY DATA CBC hemoglobin 13, hematocrit 39, platelet count to 238, INR 1.1. Chemistry - sodium 137, potassium 4.2, BUN nine, creatinine 1.07, troponin 0.6. BNP 666. IMAGING STUDIES Chest x-ray - No acute cardiopulmonary process. CARDIOLOGY STUDIES EKG sinus rhythm with a left bundle branch block. ASSESSMENT/PLAN 76-year-old male admitted with chest pain and shortness of breath, edema, minimal elevated troponins, complaints concerning for ACS. He remains fairly hemodynamically stable and currently chest pain free. Given presentation, I think it is reasonable to take him to the cardiac agriculture laboratory technician to further assess coronary anatomy and progression of coronary artery disease. Risk, benefits of left heart cath/PCI including but not limited to neurovascular trauma, infection , acute kidney injury, bleeding, emergent bypass surgery and have been explained to the patient. The patient understands risks and is willing to proceed. RECOMMENDATIONS Keep n.p.o. for left heart cath today Continue aggressive medical management for CAD. Further management to be determine MD BRADLEY Umanzor/ /5:28 PM /5:40 PM STEPAN
[2017-04-01] MEDS: VERAPAMIL HCL 80 MG TAB PO SCH (21:00)
[2017-04-01] MEDS ORDERED: cloNIDine HCL 0.1 MG TAB PO SCH (21:00)
[2017-04-01] MEDS: INSULIN ASPART SUPPLEMENTAL SCALE SQ SCH (21:00)
--- NOTE | 2017-04-01 21:13 | MA ---
cc: REINALDOELEUTERIO Romo DATE April 01, 2017 DATE OF 1940 PROCEDURE PERFORMED 1. Left heart catheterization. 2. Selective right and left coronary angiography. 3. Left ventriculogram. 4. Selective BURKS and saphenous vein graft angiography. INDICATION Angina. Positive stress test. DESCRIPTION OF PROCEDURE Consent signed. The patient was brought into the cardiac labview programmer in fasting state. The right groin and left wrist were prepped and draped in sterile fashion using 1% lidocaine for local anesthesia and a micropuncture kit, a 5-Slovenian sheath was inserted in the right common femoral artery. Right common femoral artery angiography was performed to confirm position of the sheath, then selective right and left coronary angiography was performed with a JR-4 and JL-4 diagnostic catheters. Subsequently, pictures to the saphenous vein graft were taken with a JR-4 and a multipurpose catheter. Then we tried to engage the BURKS going through the groin, however, there was severe tortuosity on the left subclavian for which we changed the approach from the left transradial approach. For this 1% lidocaine was used for local anesthesia and a 6-Slovenian sheath was inserted into the left radial artery. Antispasmodic cocktail given, then selective BURKS angiography was performed with an NEMO catheter. Angiography was taken in multiple views. Then the patient had significant calcification of the intraaortic valve suggestive of at least moderate aortic stenosis. The valve was crossed with an AL-1 over a stiff straight Amplatz wire. After the wire was introduced into the ventricle and the catheter was exchanged over a wire to a pigtail catheter. This was followed by pressure recordings, left ventriculogram pullback. The patient tolerated the procedure well without complications. Estimated blood loss less than __ cc. Total contrast 115 cc. The right groin access site was closed with a Vascade and the left radial access site was closed with ____. RESULTS ANGIOGRAPHIC RESULTS LEFT VENTRICLE The left ventricular pressure was 150/50 with an LVEDP of 27. The aortic pressure was 123/61 with a mean of 87. There was a qsjp-ps-xufv gradient across the aortic valve of 35 mmHg. The ventriculogram revealed diffuse hypokinesis with estimated ejection fraction of at least 15-20%. ANGIOGRAPHIC RESULTS 1. The right coronary artery, 100% occluded. 2. The left main is patent and has a 10% lesion. 3. The LAD is 100% occluded. 4. The left circumflex artery has minimal luminal irregularities throughout, has a proximal 70% lesion, distal 30% lesion in its OM. The ramus vessel is small with a very small caliber vessel with a 70% lesion proximally. GRAFT ANGIOGRAPHY BURKS to the LAD is patent, is anastomosed in the LAD in its mid segment. The LAD after that is filling retrograde through the BURKS. The LAD has a mid 80% lesion on its mid segment. ____ diffusely diseased. There is a small diagonal vessel that is patent. The SVG to circumflex is occluded. The SVG to diagonal is occluded. The SVG to right coronary artery is occluded. CONCLUSION 1. Severe [place] vessel coronary artery disease. 2. 3/4 grafts patent. 3. Diastolic dysfunction. 4. At least moderate aortic stenosis. RECOMMENDATIONS The patient has significant three-vessel coronary artery disease with a recent nuclear stress test showing signs of ischemia of the anterior wall, however, difficult to approach percutaneously. Also, he has what appears to be at least a moderate aortic stenosis. The patient will be admitted to the [facility] for aggressive medical management for CAD as well as valve disease. He will get a 2-D echocardiogram in the morning to reassess aortic valve and left ventricular dysfunction. Pending on those results we will consult CT surgery for recommendations. Eleuterio Cardoza MD TELEPHONE APPOINTMENT CLERK/EO /5:18 PM /8:50 PM
[2017-04-01] MEDS: clonazePAM 0.5 MG TAB PO SCH (21:47)
[2017-04-01] MEDS: SODIUM CHLORIDE 0.9% FLUSH 10 ML FLUSH IV FLUSH SCH (21:50)
[2017-04-02] VITALS (12 sets, daily range): BP systolic 107–123; BP diastolic 69–77; PULSE 65–96; RESP 18–20; TEMP 97.7–99.8; O2SAT 93–95
[2017-04-02] MEDS: MORPHINE SULFATE 8 MG/ML INJ IV PUSH PRN (04:10)
[2017-04-02 05:47] LABS: AUTOMATED NEUTROPHIL # 4.2 TH/MM3 (1.8-7.7); BASOPHIL # 0.1 TH/MM3 (0-0.2); BASOPHIL % 0.9 % (0.0-2.0); EOSINOPHIL # 0.2 TH/MM3 (0-0.4); EOSINOPHIL % 2.2 % (0.0-4.0); HEMATOCRIT 38.6 % (39.0-51.0); HEMO FLAGS DIFF FINAL; LYMPHOCYTE # 2.1 TH/MM3 (1.0-4.8); MEAN CELL VOLUME 89.5 FL (80.0-100.0); MEAN CORPUSCULAR HEMOGLOBIN 30.8 PG (27.0-34.0); MEAN CORPUSCULAR HGB CONC 34.4 % (32.0-36.0); MONO % 9.8 % (0.0-8.0); NEUT % 58.1 % (16.0-70.0); PLATELET COUNT 211 TH/MM3 (150-450); RED BLOOD COUNT 4.32 MIL/MM3 (4.50-5.90); RED CELL DISTRIBUTION WIDTH 13.2 % (11.6-17.2); WHITE BLOOD COUNT 7.2 TH/MM3 (4.0-11.0)
[2017-04-02 05:52] LABS: BICARBONATE 23.9 MEQ/L (21.0-32.0); POTASSIUM 3.8 MEQ/L (3.5-5.1)
[2017-04-02] MEDS: INSULIN ASPART SUPPLEMENTAL SCALE SQ SCH ×4 (08:00→21:00)
[2017-04-02] MEDS ORDERED: IOHEXOL 350 MG/ML 50 ML BTL (for Cath Lab) OTHER ONE (08:15)
[2017-04-02] MEDS ORDERED: IOHEXOL 350 MG/ML 100 ML BTL (for Cath Lab) OTHER ONE (08:15)
[2017-04-02] MEDS: VERAPAMIL HCL 80 MG TAB PO SCH ×2 (08:44→21:00)
[2017-04-02] MEDS: ASPIRIN 81 MG CHEW TAB CHEW SCH (08:44)
[2017-04-02] MEDS: ISOSORBIDE MONONITRATE 30 MG TAB PO SCH (08:44)
[2017-04-02] MEDS: clonazePAM 0.5 MG TAB PO SCH ×2 (08:44→21:00)
[2017-04-02] MEDS: FUROSEMIDE 20 MG/2 ML VIAL IV PUSH SCH ×2 (08:44→18:00)
[2017-04-02] MEDS: ENALAPRIL MALEATE 10 MG TAB PO SCH (09:00)
[2017-04-02] MEDS: SODIUM CHLORIDE 0.9% FLUSH 10 ML FLUSH IV FLUSH SCH ×2 (09:00→21:00)
--- NOTE | 2017-04-02 09:21 | PD.CARD.PN ---
Subjective Subjective Remarks no overnight events no cv complaints off heparin drip and nitro drip s/p LHC Objective Medications Current Medications Medications (Trade) Dose Ordered Sig/Chika Route Start Time Stop Time Status Last Admin (Heparin Inj) 5,000 units UNSCH PRN IV 04/01/17 17:15 (Heparin Inj) 2,500 units UNSCH PRN IV 04/01/17 17:15 Heparin Sodium/ Dextrose 250 ml @ 10 mls/hr TITRATE ONCE IV 04/01/17 11:15 04/02/17 12:14 04/01/17 11:42 Nitroglycerin/ Dextrose 250 ml @ 1.5 mls/hr TITRATE PRN IV 04/01/17 11:15 04/01/17 11:43 (Aspirin Chew) 81 mg DAILY CHEW 04/02/17 09:00 04/02/17 08:44 (KlonoPIN) 0.5 mg BID PO 04/01/17 21:00 04/02/17 08:44 (Vasotec) 20 mg DAILY PO 04/02/17 09:00 (Isoptin) 80 mg BID PO 04/01/17 21:00 04/02/17 08:44 (NS Flush) 2 ml BID IV FLUSH 04/01/17 21:00 04/01/17 21:50 (NS Flush) 2 ml UNSCH PRN IV FLUSH 04/01/17 12:15 (Morphine Inj) 2 mg Q4HR PRN IV PUSH 04/01/17 12:15 04/02/17 04:10 (Lasix Inj) 20 mg BID@09,18 IV PUSH 04/02/17 09:00 04/02/17 08:44 (D50w (Vial) Inj) 50 ml UNSCH PRN IV PUSH 04/01/17 15:00 (Glucagon Inj) 1 mg UNSCH PRN OTHER 04/01/17 15:00 (NovoLOG SUPPLEMENTAL SCALE) 1 ACHS SLIDING SCALE SQ 04/01/17 17:00 (Imdur) 30 mg DAILY@07 PO 04/02/17 07:00 04/02/17 08:44 Vital Signs / I&O Vital Signs Date Time Temp Pulse Resp B/P (MAP) Pulse Ox O2 Delivery O2 Flow Rate FiO2 04/02/17 05:31 65 04/02/17 03:40 97.7 72 18 117/76 (90) 93 04/01/17 23:30 98.4 64 18 118/78 (91) 97 04/01/17 23:30 70 04/01/17 23:20 96 Nasal Cannula 2.00 04/01/17 20:00 98.5 66 18 135/79 (97) 97 04/01/17 20:00 97 Nasal Cannula 2.00 04/01/17 19:00 66 04/01/17 18:00 73 04/01/17 17:30 98.0 73 16 142/84 (103) 89 04/01/17 15:29 70 16 142/84 (103) 99 Room Air 04/01/17 15:27 04/01/17 14:31 68 16 121/73 (89) 99 Room Air 04/01/17 13:59 95 21 04/01/17 13:43 70 16 139/83 (101) 95 Room Air 04/01/17 12:30 68 20 137/81 (99) 96 Room Air 04/01/17 11:43 75 143/84 04/01/17 11:36 73 16 143/84 (103) 96 Room Air 04/01/17 10:44 73 16 140/84 (102) 96 Room Air 04/01/17 10:10 20 94 Room Air 04/01/17 09:27 98.4 85 16 143/98 (113) 95 I/O 04/01/17 04/01/17 04/01/17 04/02/17 04/02/17 04/02/17 07:00 15:00 23:00 07:00 15:00 23:00 Intake Total 250 ml Output Total 1200 ml 500 ml Balance -1200 ml -250 ml Intake Oral 250 ml Output Urine Total 1200 ml 500 ml # Voids 1 # Bowel Movements 0 Physical Exam GENERAL: Well-nourished, well-developed patient. SKIN: Warm and dry. HEAD: Normocephalic. EYES: No scleral icterus. No injection or drainage. NECK: Supple, trachea midline. No JVD or lymphadenopathy. CARDIOVASCULAR: Regular rate and rhythm 2/6 CORNELL murmurs, gallops, or rubs. RESPIRATORY: Breath sounds equal bilaterally. No accessory muscle use. GASTROINTESTINAL: Abdomen soft, non-tender, nondistended. EXTREMITIES: No cyanosis, or edema. NEUROLOGICAL: Awake, alert, and oriented x 3. Non-focal. Laboratory Laboratory Tests Test 04/01/17 10:10 04/02/17 05:19 White Blood Count 7.5 TH/MM3 7.2 TH/MM3 Red Blood Count 4.49 MIL/MM3 4.32 MIL/MM3 Hemoglobin 13.9 GM/DL 13.3 GM/DL Hematocrit 39.8 % 38.6 % Mean Corpuscular Volume 88.7 FL 89.5 FL Mean Corpuscular Hemoglobin 31.0 PG 30.8 PG Mean Corpuscular Hemoglobin Concent 34.9 % 34.4 % Red Cell Distribution Width 13.2 % 13.2 % Platelet Count 238 TH/MM3 211 TH/MM3 Mean Platelet Volume 7.3 FL 7.7 FL Neutrophils (%) (Auto) 63.3 % 58.1 % Lymphocytes (%) (Auto) 25.4 % 29.0 % Monocytes (%) (Auto) 9.2 % 9.8 % Eosinophils (%) (Auto) 1.1 % 2.2 % Basophils (%) (Auto) 1.0 % 0.9 % Neutrophils # (Auto) 4.8 TH/MM3 4.2 TH/MM3 Lymphocytes # (Auto) 1.9 TH/MM3 2.1 TH/MM3 Monocytes # (Auto) 0.7 TH/MM3 0.7 TH/MM3 Eosinophils # (Auto) 0.1 TH/MM3 0.2 TH/MM3 Basophils # (Auto) 0.1 TH/MM3 0.1 TH/MM3 CBC Comment DIFF FINAL DIFF FINAL Differential Comment Prothrombin Time 12.2 SEC Prothromb Time International Ratio 1.1 RATIO Activated Partial Thromboplast Time 31.9 SEC Blood Urea Nitrogen 9 MG/DL 12 MG/DL Creatinine 1.07 MG/DL 1.12 MG/DL Random Glucose 108 MG/DL 128 MG/DL Calcium Level 8.9 MG/DL 8.6 MG/DL Magnesium Level 2.0 MG/DL Sodium Level 137 MEQ/L 135 MEQ/L Potassium Level 4.2 MEQ/L 3.8 MEQ/L Chloride Level 106 MEQ/L 102 MEQ/L Carbon Dioxide Level 21.4 MEQ/L 23.9 MEQ/L Anion Gap 10 MEQ/L 9 MEQ/L Estimat Glomerular Filtration Rate 68 ML/MIN 64 ML/MIN Total Creatine Kinase 108 U/L Creatine Kinase MB 2.9 NG/ML Troponin I 0.60 NG/ML B-Type Natriuretic Peptide 666 PG/ML Imaging Last 24 hours Impressions Chest X-Ray 04/01/17 0945 Signed Impressions: Service Date/Time: March 09:58 - CONCLUSION: 1. Interstitial prominence in the lower lung zones bilaterally could be related to atelectasis or could represent mild interstitial edema. 2. Mildly enlarged cardiac silhouette in this patient post CABG. 3. Multiple nodules likely representing granulomas from prior granulomatous infection. Jez Gonzalez MD Assessment and Plan Problem List: (1) Aortic stenosis, severe ICD Codes: I35.0 - Nonrheumatic aortic (valve) stenosis Plan: 76 y/o M admitted with angina, [facility] shows severe 3 vessel CAD with 1/4 graft patent (BURKS to LAD) and severe LV systolic dysfunction. He remains hemodynamically stable and chest pain free. Preliminary TTE shows severe LV dysfunction and severe Aortic Stenosis. Although symptoms might be due to the valve he does has significant progression of [place] CAD with only 1 the BURKS to LAD patent. Case will be consulted to the [facility] [place] Structural Valve Team for TAVR. Regarding ischemia management will optimize CAD/CHF medications, ACEi, CCB ( allergic to Beta-Blockers and statins), Imdur and Ranexa. Recommendations: 1. TAVR evaluation 2. Optimization of CAD therapy. (2) CHF (congestive heart failure) ICD Codes: I50.9 - Heart failure, unspecified Status: Acute (3) Non-STEMI (non-ST elevated myocardial infarction) ICD Codes: I21.4 - Non-ST elevation (NSTEMI) myocardial infarction Status: Acute (4) Diabetes ICD Codes: E11.9 - Type 2 diabetes mellitus without complications (5) Hypertension ICD Codes: I10 - Essential (primary) hypertension Problem Qualifiers (1) CHF (congestive heart failure): Qualified Codes: I50.9 - Heart failure, unspecified Eleuterio Cardoza MD Apr 02, 2017 09:21
--- NOTE | 2017-04-02 10:06 | HHI.PR ---
Subjective Remarks Patient states he is doing okay this morning. No chest pain or shortness of breath at rest. Status post heart catheterization which revealed severe three- vessel disease. Only one out of 4 grafts patent. LVEF 15-20% per heart catheterization report. Preliminary TTE per cardiology shows severe aortic stenosis. Objective Vitals Vital Signs Date Time Temp Pulse Resp B/P (MAP) Pulse Ox O2 Delivery O2 Flow Rate FiO2 04/02/17 05:31 65 04/02/17 03:40 97.7 72 18 117/76 (90) 93 04/01/17 23:30 98.4 64 18 118/78 (91) 97 04/01/17 23:30 70 04/01/17 23:20 96 Nasal Cannula 2.00 04/01/17 20:00 98.5 66 18 135/79 (97) 97 04/01/17 20:00 97 Nasal Cannula 2.00 04/01/17 19:00 66 04/01/17 18:00 73 04/01/17 17:30 98.0 73 16 142/84 (103) 89 04/01/17 15:29 70 16 142/84 (103) 99 Room Air 04/01/17 15:27 04/01/17 14:31 68 16 121/73 (89) 99 Room Air 04/01/17 13:59 95 21 04/01/17 13:43 70 16 139/83 (101) 95 Room Air 04/01/17 12:30 68 20 137/81 (99) 96 Room Air 04/01/17 11:43 75 143/84 04/01/17 11:36 73 16 143/84 (103) 96 Room Air 04/01/17 10:44 73 16 140/84 (102) 96 Room Air 04/01/17 10:10 20 94 Room Air I/O 04/01/17 04/01/17 04/01/17 04/02/17 04/02/17 04/02/17 07:00 15:00 23:00 07:00 15:00 23:00 Intake Total 250 ml Output Total 1200 ml 500 ml Balance -1200 ml -250 ml Intake Oral 250 ml Output Urine Total 1200 ml 500 ml # Voids 1 # Bowel Movements 0 Result Diagram: 04/02/1751804/02/17518 Imaging Last Impressions Chest X-Ray 04/01/17 09 Signed Impressions: Service Date/Time: March 09:58 - CONCLUSION: 1. Interstitial prominence in the lower lung zones bilaterally could be related to atelectasis or could represent mild interstitial edema. 2. Mildly enlarged cardiac silhouette in this patient post CABG. 3. Multiple nodules likely representing granulomas from prior granulomatous infection. Jez Gonzalez MD Objective Remarks GENERAL: This is a well-nourished, well-developed patient, in no apparent distress. CARDIOVASCULAR: Normal rate and regular rhythm. 3/6 CORNELL murmur best heard over the right upper sternal border. RESPIRATORY: Good respiratory efforts. Breath sounds equal and clear to auscultation bilaterally. Diminished breath sounds at the bases. GASTROINTESTINAL: Abdomen soft, non-tender, non-distended. Normal active bowel sounds MUSCULOSKELETAL: Extremities without cyanosis, or edema. NEURO: Alert & Oriented x4 to person, place, time, situation. Moves all ext x4 PSYCH: Appropriate mood and affect. A/P Problem List: (1) Hypertension ICD Code: I10 - Essential (primary) hypertension (2) Diabetes ICD Code: E11.9 - Type 2 diabetes mellitus without complications (3) Non-STEMI (non-ST elevated myocardial infarction) ICD Code: I21.4 - Non-ST elevation (NSTEMI) myocardial infarction Status: Acute (4) CHF (congestive heart failure) ICD Code: I50.9 - Heart failure, unspecified Status: Acute Assessment and Plan In summary, this is a 76-year-old male admitted with NSTEMI, CHF. Heart catheterization and preliminary TTE by cardiology revealed severe disease in 3 out of 4 grafts, LVEF 15-20% and severe aortic stenosis. CT surgery consulted for TAVR, optimal medical management for CAD. NSTEMI: S/P heart catheterization. Severe disease in 3 out of 4 grafts. - Heparin drip and nitro drip discontinued. - Cardiology following. Optimize medical management for ischemia with CHICHI inhibitor, calcium channel lynn, Imdur. - Continue aspirin. Patient is allergic to statin and metoprolol. Acute systolic CHF: Elevated BNP, chest x-ray reviewed, consistent with mild congestive failure. LVEF of 15-20% on heart catheterization. - Preliminary TTE per cardiology revealed severe LV dysfunction and aortic stenosis. - Status post 1 dose of 40 mg IV Lasix. Continue with 20 g IV twice a day. Plan to transition to oral Lasix tomorrow if no objection from cardiology, he does not appear to have too much fluid on board. Severe aortic stenosis: Cardiology following. - Cardiothoracic surgery consulted for TAVR. Diabetes: - Hold metformin. - Sliding scale insulin with Accu-Cheks. GI prophylaxis: Start Famotidine. Stool softener PRN constipation. DVT PPx: Will place on sq heparin Discharge Planning Patient will be evaluated by CT surgery. Further plans based on the patient progress, CT surgery and Cardiology recs. Problem Qualifiers (1) CHF (congestive heart failure): Qualified Codes: I50.9 - Heart failure, unspecified Zoe Cooper MD Apr 02, 2017 10:06
--- NOTE | 2017-04-02 13:37 | PD.CAR.PN ---
CVT Progress Note Subjective/Hospital Course: sts discussed with pt RISK SCORES About the STS Risk Calculator Procedure: AV Replacement + CAB Risk of Mortality: 7.288% Morbidity or Mortality: 33.95% Long Length of Stay: 17.303% Short Length of Stay: 18.001% Permanent Stroke: 2.553% Prolonged Ventilation: 25.497% DSW Infection: 0.7% Renal Failure: 11.029% Reoperation: 13.059% Objective: Vital Signs Date Time Temp Pulse Resp B/P (MAP) Pulse Ox O2 Delivery O2 Flow Rate FiO2 04/02/17 07:00 98.9 70 20 123/76 (92) 95 04/02/17 07:00 95 Room Air 04/02/17 05:31 65 04/02/17 03:40 97.7 72 18 117/76 (90) 93 04/01/17 23:30 98.4 64 18 118/78 (91) 97 04/01/17 23:30 70 04/01/17 23:20 96 Nasal Cannula 2.00 04/01/17 20:00 98.5 66 18 135/79 (97) 97 04/01/17 20:00 97 Nasal Cannula 2.00 04/01/17 19:00 66 04/01/17 18:00 73 04/01/17 17:30 98.0 73 16 142/84 (103) 89 04/01/17 15:29 70 16 142/84 (103) 99 Room Air 04/01/17 15:27 04/01/17 14:31 68 16 121/73 (89) 99 Room Air 04/01/17 13:59 95 21 04/01/17 13:43 70 16 139/83 (101) 95 Room Air Labs: Laboratory Tests Test 04/02/17 05:19 White Blood Count 7.2 TH/MM3 (4.0-11.0) Red Blood Count 4.32 MIL/MM3 (4.50-5.90) Hemoglobin 13.3 GM/DL (13.0-17.0) Hematocrit 38.6 % (39.0-51.0) Mean Corpuscular Volume 89.5 FL (80.0-100.0) Mean Corpuscular Hemoglobin 30.8 PG (27.0-34.0) Mean Corpuscular Hemoglobin Concent 34.4 % (32.0-36.0) Red Cell Distribution Width 13.2 % (11.6-17.2) Platelet Count 211 TH/MM3 (150-450) Mean Platelet Volume 7.7 FL (7.0-11.0) Neutrophils (%) (Auto) 58.1 % (16.0-70.0) Lymphocytes (%) (Auto) 29.0 % (9.0-44.0) Monocytes (%) (Auto) 9.8 % (0.0-8.0) Eosinophils (%) (Auto) 2.2 % (0.0-4.0) Basophils (%) (Auto) 0.9 % (0.0-2.0) Neutrophils # (Auto) 4.2 TH/MM3 (1.8-7.7) Lymphocytes # (Auto) 2.1 TH/MM3 (1.0-4.8) Monocytes # (Auto) 0.7 TH/MM3 (0-0.9) Eosinophils # (Auto) 0.2 TH/MM3 (0-0.4) Basophils # (Auto) 0.1 TH/MM3 (0-0.2) CBC Comment DIFF FINAL Differential Comment Blood Urea Nitrogen 12 MG/DL (7-18) Creatinine 1.12 MG/DL (0.60-1.30) Random Glucose 128 MG/DL (74-106) Calcium Level 8.6 MG/DL (8.5-10.1) Sodium Level 135 MEQ/L (136-145) Potassium Level 3.8 MEQ/L (3.5-5.1) Chloride Level 102 MEQ/L (98-107) Carbon Dioxide Level 23.9 MEQ/L (21.0-32.0) Anion Gap 9 MEQ/L (5-15) Estimat Glomerular Filtration Rate 64 ML/MIN (>89) Albumin 3.7 GM/DL (3.4-5.0) Result Diagram: 04/02/1751804/02/17518 (1) Aortic stenosis, severe Plan: 76 y/o M admitted with angina, [facility] shows severe 3 vessel CAD with 1/4 graft patent (BURKS to LAD) and severe LV systolic dysfunction. He remains hemodynamically stable and chest pain free. Preliminary TTE shows severe LV dysfunction and severe Aortic Stenosis. Although symptoms might be due to the valve he does has significant progression of [place] CAD with only 1 the BURKS to LAD patent. Case will be consulted to the [facility] Structural Valve Team for TAVR. Regarding ischemia management will optimize CAD/CHF medications, ACEi, CCB ( allergic to Beta-Blockers and statins), Imdur and Ranexa. Recommendations: 1. TAVR evaluation 2. Optimization of CAD therapy. (2) CHF (congestive heart failure) (3) Non-STEMI (non-ST elevated myocardial infarction) (4) Diabetes (5) Hypertension Problem Qualifiers (1) CHF (congestive heart failure): Qualified Codes: I50.9 - Heart failure, unspecified Rona Byrne Apr 02, 2017 13:37
[2017-04-02] MEDS ORDERED: IOHEXOL 350 MG/ML 10 ML VIAL (for RAD DIAG) IVCONTRAST ONE (14:57)
--- NOTE | 2017-04-02 15:17 | MB ---
cc: CARLITA REED MD DATE OF CONSULTATION: 04/02/2017. REASON FOR CONSULTATION: Evaluate for re-do coronary artery bypass graft with aortic valve replacement versus transcatheter aortic valve replacement and possible need for high-risk percutaneous coronary intervention if possible. HISTORY OF PRESENT ILLNESS: This is a 76-year-old male admitted via the emergency room yesterday afternoon with complaint of chest pain. He had been having what he described as exploding type chest discomfort for the last couple years because he was taking niacin. He stopped it two or three weeks ago and then after stopping it, he noticed that he was having pressure in his chest, mainly with exertion off and on for the last two to three weeks. Associated shortness of breath. He was recently seen by Dr. Chatterjee in the office. The stress test did show some positive ischemia in the anterior wall. He was scheduled for an elective cath; however, presented to the emergency department with chest pain. The chest pain was with minimal exertion and associated with shortness of breath. The patient denied having any fevers or chills. No nausea or vomiting. Dr. Chatterjee was consulted and took the patient to the confectionery laboratory manager and was found to have three of his four prior coronary artery bypass grafts occluded. The diagonal was 100%, the circumflex was 100%, the right coronary artery was 100%. The BURKS to the left anterior descending had no occlusion. The left main had 10%. He also had aortic valve gradient of 29 mmHg. He was felt to have moderate aortic stenosis. We were consulted to evaluate for re-do coronary artery bypass grafting with aortic valve replacement versus transcatheter aortic valve replacement and possible need for high-risk percutaneous coronary intervention if possible. The cardiac films have been reviewed by Dr. Carlita Reed. At this time, he has no targets that would allow him to further re-do the coronary artery bypass graft. He did have a frailty score of 10/4. His STS score is 7.28. PAST MEDICAL HISTORY: His past medical history includes: 1. Hypertension. 2. Coronary artery disease. 3. Diabetes mellitus diet-controlled. 4. Prior myocardial infarction in 2008. 5. He has also had three stents after his bypass surgery. PAST SURGICAL HISTORY: 1. He had coronary artery bypass graft x4 [place] [address] Turk. 2. Three stent placements. No other past surgeries. ALLERGIES: 1. STATINS. 2. SULFA. 3. AMLODIPINE. 4. HYDROCODONE. 5. METOPROLOL. 6. NIACIN. 7. POTASSIUM. FAMILY HISTORY: The mother at 82 from heart disease. Father from emphysema. SOCIAL HISTORY: The patient is . Three children. Smoked for 20 years and quit in 1982. Rare alcohol. 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 Fairly active at home. Mows his lawn. Takes care of his house. Takes care of his neighbor's yard. He drives. He takes care of his activities of daily living. REVIEW OF SYSTEMS: GENERAL: In general no night sweats, fever, heat and cold intolerance. SKIN: No psoriasis, itching or hives. HEAD, EYES, EARS, NOSE, THROAT: No blurred vision, hearing loss. RESPIRATORY: Positive for shortness of breath. CARDIOVASCULAR: As above in the history of present illness. GASTROINTESTINAL: No diarrhea, vomiting. GENITOURINARY: No burning, frequency, urgency. DESK ASSISTANT: No history of TIA, CVA, seizure disorder. ENDOCRINOLOGY: He states he has a history of diabetes but no medical therapy for that. PHYSICAL EXAMINATION: VITAL SIGNS: On exam, blood pressure 120/70, heart rate is 70, temperature max 98.9. GENERAL: Patient is awake, alert and in no acute distress. HEAD, EYES, EARS, NOSE, THROAT: Head is normocephalic, atraumatic. Pupils equal and reactive. Oral mucosa pink, moist. NECK: The neck is supple. No JVD. HEART: Heart sounds S1, S2, regular rate and rhythm. There is a grade 2/6 systolic ejection murmur. LUNGS: Clear to auscultation. No wheezes, rales or rhonchi. ABDOMEN: Abdomen is soft and nontender. No masses or organomegaly. EXTREMITIES: No cyanosis, clubbing or edema. SKIN: As above. He has a well-healed sternotomy scar and also an incision to his right lower extremity and his left lower extremity. LABORATORY STUDIES: Lab work shows hemoglobin 13, hematocrit of 38, white cell count of 7, platelet count 211,000. Sodium 135, potassium 3.8, BUN of 12, creatinine 1.12, glucose 128. INR 1.1. IMAGING STUDIES: Chest x-ray shows interstitial prominence lower lung zones, enlarged cardiac silhouette, multiple nodules likely representing granulomas from prior granulomatous infection. IMPRESSION: 1. This is a 76-year-old patient who was admitted with chest pain and who underwent cardiac catheterization and was also found to have moderate aortic stenosis. Ejection fraction of 35%. History of coronary artery disease with three of his four bypasses occluded. The films have been reviewed by Dr. Carlita Reed. The patient is an intermediate to high risk for re-do coronary artery bypass graft and aortic valve replacement secondary to his prior history of sternotomy. 2. He has poor targets for re-do coronary artery bypass graft. His STS data is 7.28 and his frailty score is 2/4. Recommending at this time for the patient to be evaluated for if possible any type of high-risk percutaneous coronary intervention and transcatheter aortic valve replacement. Dictated by JORDON Carter. Agree with above. Chart reviewed and patient examined. I don't think he is a candidate fore re-operative CABG/AVR given his lack of distal targets, patent BURKS graft and severe left ventricular dysfunction. He is [id number] risk for surgical intervention and, if determined to have hemodynamically significant , would greatly benefit from TAVR therapy. He also will not be an operative candidate, should he require emergent median sternotomy during the TAVR. Thank you for allowing me to participate in the care of this patient. Carlita ROSARIO/LIZ /1:39 PM /3:08 PM STEPAN
[2017-04-02] MEDS: HEPARIN SODIUM - SQ 10,000 UNITS/ML VIAL SQ SCH (16:00)
--- NOTE | 2017-04-02 16:43 | RADRPT ---
EXAM DATE/TIME: 04/02/2017 14:17 [facility] COMPARISON: No previous studies available for comparison. INDICATIONS : Chest pain and short of breath, History of coronary disease. IV CONTRAST: 99 cc Omnipaque 350 (iohexol) IV RADIATION DOSE: 42.41 CTDIvol (mGy) MEDICAL HISTORY : Cardiovascular disease. Hypertension. Diabetes mellitus type 2. SURGICAL HISTORY : CABG ENCOUNTER: Initial ACUITY: 2 days PAIN SCALE: 0/10 LOCATION: chest TECHNIQUE: Volumetric scanning was performed using a multi-row detector CT scanner. The data was post processed with a variety of visualization algorithms including full volume maximum intensity projection, multi -planar sliding thin slab reformation, curved planar reformation, and surface rendering techniques. Using automated exposure control and adjustment of the mA and/or kV according to patient size, radiat ion dose was kept as low as reasonably achievable to obtain optimal diagnostic quality images. DIC OM format image data is available electronically for review and comparison. FINDINGS: CARDIAC: The coronary system is right dominant. Diffuse calcified atherosclerotic plaque involving the coronar y vessels. Motion artifact degrades the exam not allowing stenosis evaluation. There is no pericardia l effusion AORTIC ROOT/VALVE: 3 cusps are evident with significant calcifications. The aortic root measures 3.7 cm. Mid thoracic aorta measures 3.5 cm with no calcifications. THORACIC AORTA: Origin of the great vessels is normal. No evidence of aneurysm, mural thrombus, dissection, mural ca lcification, or stenosis. ABDOMINAL AORTA: No evidence of aneurysm, mural thrombus, dissection, or stenosis. Scattered calcified atheromatous pl aque throughout the aorta and major branches. CELIAC ARTERY: There is variant anatomy at the celiac. There is a separate origin to the left gastric and phrenic ar teries. Both branches are patent. SMA: Superior mesenteric artery is widely patent. RIGHT RENAL ARTERY: There is a single renal artery on the right. Eccentric partially calcified plaque generates a 50% micaela nosis. This occurs at the origin. LEFT RENAL ARTERY: Left renal artery is widely patent although with calcified plaque.. RIGHT COMMON ILIAC: No evidence of aneurysm, mural thrombus, dissection, or stenosis. Calcified plaque is seen in a conc entric manner. The common femoral measures 9 mm. LEFT COMMON ILIAC: No evidence of aneurysm, mural thrombus, dissection, or stenosis. Calcified plaque in a concentric ma nner. The common femoral measures 11 mm. THORAX: Small bilateral pleural effusions with associated passive atelectasis. Scattered calcified plaques as well as scattered calcified granulomas. No acute infiltrate. Calcified mediastinal nodes. Heart is m ildly enlarged. Coronary artery atherosclerotic calcifications. ABDOMEN: The liver is diffusely low in attenuation. Multiple cortical cysts involving the kidneys bilaterally. The largest is 4.9 cm on the right. Granulomatous calcifications involving the spleen. Colonic diver ticulosis without acute inflammation. There is stranding of the subcutaneous fat involving the right groin. No hematoma. No abscess. PELVIS: See above CONCLUSION: 1. Calcified tricuspid aortic valve. 2. Coronary artery atherosclerotic calcifications. 3. Cardiomegaly. 4. Small bilateral pleural effusions with passive atelectasis. 5. Hepatic steatosis. 6. 50% stenosis involving the right renal artery. Arnol Baker Jr., MD on April 02, 2017 at 16:11 Board Certified Radiologist. This report was verified electronically.
[2017-04-02] MEDS: FAMOTIDINE 20 MG TAB PO SCH (21:00)
[2017-04-02] MEDS ORDERED: ACETAMINOPHEN 325 MG TAB PO PRN (22:00)
[2017-04-02] MEDS ORDERED: SENNOSIDES 8.6 MG TAB PO PRN (22:00)
--- NOTE | 2017-04-02 22:03 | EKG ---
Date Performed: 04/01/2017 Time Performed: 10:02:36 PTAGE: 76 years EKG: Sinus rhythm INTRAVENTRICULAR CONDUCTION DELAY INFERIOR MYOCARDIAL INFARCTION ANTEROSEPTAL MYOCARDIAL INFARCTION ABNORMAL ECG NO PREVIOUS TRACING DOCTOR: Shyam Durand Interpretating Date/Time 04/02/2017 21:45:00
--- NOTE | 2017-04-02 23:16 | EKG ---
Date Performed: 04/01/2017 Time Performed: 22:12:16 PTAGE: 76 years EKG: Sinus rhythm . Left bundle branch block Possible inferior infarct - age undetermined Abnormal ECG PREVIOUS TRACING : 04/01/2017 10.02 Compared to prior tracing no significant change DOCTOR: Shyam Durand Interpretating Date/Time 04/02/2017 23:16:13
[2017-04-03] VITALS (14 sets, daily range): BP systolic 90–129; BP diastolic 56–78; PULSE 58–93; RESP 16–20; TEMP 98–99.1; O2SAT 94–97
[2017-04-03] MEDS: MORPHINE SULFATE 8 MG/ML INJ IV PUSH PRN (00:03)
[2017-04-03] MEDS: HEPARIN SODIUM - SQ 10,000 UNITS/ML VIAL SQ SCH (04:18)
[2017-04-03 05:20] LABS: MEAN CELL VOLUME 89.1 FL (80.0-100.0); MEAN CORPUSCULAR HEMOGLOBIN 30.7 PG (27.0-34.0); MEAN CORPUSCULAR HGB CONC 34.4 % (32.0-36.0); PLATELET COUNT 206 TH/MM3 (150-450); RED BLOOD COUNT 4.16 MIL/MM3 (4.50-5.90); RED CELL DISTRIBUTION WIDTH 13.4 % (11.6-17.2); REVIEW FLAG FINAL; WHITE BLOOD COUNT 7.6 TH/MM3 (4.0-11.0)
[2017-04-03 05:34] LABS: BICARBONATE 24.4 MEQ/L (21.0-32.0); POTASSIUM 3.6 MEQ/L (3.5-5.1)
[2017-04-03] MEDS: INSULIN ASPART SUPPLEMENTAL SCALE SQ SCH ×2 (08:00→12:00)
--- NOTE | 2017-04-03 08:04 | HHI.PR ---
Subjective Remarks resting comfortably with no distress. no chest pain or sob. no new complaints. Objective Vitals Vital Signs Date Time Temp Pulse Resp B/P (MAP) Pulse Ox O2 Delivery O2 Flow Rate FiO2 04/03/17 06:00 74 04/03/17 05:00 68 04/03/17 04:00 70 04/03/17 03:00 99.1 67 16 117/72 (87) 94 04/03/17 03:00 60 04/03/17 02:00 58 04/03/17 01:00 66 04/03/17 00:17 16 04/03/17 00:15 95 Room Air 04/02/17 23:53 18 04/02/17 23:00 98.9 89 18 115/76 (89) 95 04/02/17 23:00 96 04/02/17 22:00 78 04/02/17 21:00 82 04/02/17 20:45 21 04/02/17 20:00 78 04/02/17 19:00 99.8 76 18 115/77 (90) 95 04/02/17 19:00 78 04/02/17 19:00 95 Room Air 04/02/17 18:07 93 21 04/02/17 17:00 75 04/02/17 15:00 98.5 69 18 107/69 (82) 93 04/02/17 11:00 99.3 74 18 111/76 (88) 93 04/02/17 11:00 74 I/O 04/02/17 04/02/17 04/02/17 04/03/17 04/03/17 04/03/17 07:00 15:00 23:00 07:00 15:00 23:00 Intake Total 720 ml 480 ml Output Total 1130 ml 925 ml Balance -410 ml -445 ml Intake Oral 720 ml 480 ml Output Urine Total 1130 ml 925 ml Result Diagram: 04/03/17 0430 04/03/17 0456 Imaging Last Impressions Chest CTA 04/02/17 0000 Signed Impressions: Service Date/Time: Sunday, April 02, 2017 14:17 - CONCLUSION: 1. Calcified tricuspid aortic valve. 2. Coronary artery atherosclerotic calcifications. 3. Cardiomegaly. 4. Small bilateral pleural effusions with passive atelectasis. 5. Hepatic steatosis. 6. 50%% stenosis involving the right renal artery. Arnol Baker Jr., MD Chest X-Ray 04/01/17 0971 Signed Impressions: Service Date/Time: March 09:58 - CONCLUSION: 1. Interstitial prominence in the lower lung zones bilaterally could be related to atelectasis or could represent mild interstitial edema. 2. Mildly enlarged cardiac silhouette in this patient post CABG. 3. Multiple nodules likely representing granulomas from prior granulomatous infection. Jez Gonzalez MD Objective Remarks GENERAL: This is a well-nourished, well-developed patient, in no apparent distress. CARDIOVASCULAR: Regular rate and regular rhythm without murmurs, gallops, or rubs. RESPIRATORY: Clear to auscultation. Breath sounds equal bilaterally. No wheezes , rales, or rhonchi. GASTROINTESTINAL: Abdomen soft, non-tender, nondistended. Normal, active bowel sounds MUSCULOSKELETAL: Extremities without clubbing, cyanosis, or edema. NEURO: Alert & Oriented x4 to person, place, time, situation. Moves all ext x4 Procedures cardiac cath Medications and IVs Current Medications Heparin Sodium (Porcine) (Heparin Inj) 7,000 units ONCE ONCE IV Last administered on 04/01/17 11:45; Start 04/01/17 at 11:15; Stop 04/01/17 at 11 :16; Status DC Heparin Sodium (Porcine) (Heparin Inj) 5,000 units UNSCH PRN IV APTT LESS THAN 25; Start 04/01/17 at 17:15; Stop 04/02/17 at 10:11; Status DC Heparin Sodium (Porcine) (Heparin Inj) 2,500 units UNSCH PRN IV APTT 25 TO 39; Start 04/01/17 at 17:15; Stop 04/02/17 at 10:11; Status DC Heparin Sodium/ Dextrose 250 ml @ 10 mls/hr TITRATE ONCE IV Last administered on 04/01/17 11:42; Start 04/01/17 at 11:15; Stop 04/02/17 at 12 :14; Status DC Nitroglycerin/ Dextrose 250 ml @ 1.5 mls/hr TITRATE PRN IV Chest pain relief Last administered on 04/01/17 11:43; Start 04/01/17 at 11:15 Aspirin (Aspirin Chew) 81 mg DAILY CHEW Last administered on 04/02/17 08:44; Start 04/02/17 at 09:00 Clonazepam (KlonoPIN) 0.5 mg BID PO Last administered on 04/02/17 21:00; Start 04/01/17 at 21:00 Clonidine (Catapres) 0.1 mg BID PO ; Start 04/01/17 at 21:00; Stop 04/01/17 at 21:00; Status DC Enalapril Maleate (Vasotec) 20 mg DAILY PO ; Start 04/02/17 at 09:00 Verapamil HCl (Isoptin) 80 mg BID PO Last administered on 04/02/17 21:00; Start 04/01/17 at 21:00 Furosemide (Lasix Inj) 40 mg ONCE ONCE IV PUSH Last administered on 12:43; Start 04/01/17 at 12:15; Stop 04/01/17 at 12:16; Status DC Alprazolam (Xanax) 0.5 mg ONCE ONCE PO Last administered on 04/01/17 12:43; Start 04/01/17 at 12:15; Stop 04/01/17 at 12:16; Status DC Sodium Chloride (NS Flush) 2 ml BID IV FLUSH Last administered on 04/02/17 21 :00; Start 04/01/17 at 21:00 Sodium Chloride (NS Flush) 2 ml UNSCH PRN IV FLUSH FLUSH AFTER USING IV ACCESS ; Start 04/01/17 at 12:15 Morphine Sulfate (Morphine Inj) 2 mg Q4HR PRN IV PUSH SEVERE PAIN Last administered on 04/03/17 00:03; Start 04/01/17 at 12:15 Furosemide (Lasix Inj) 20 mg BID@09,18 IV PUSH Last administered on 04/02/17 18:00; Start 04/02/17 at 09:00 Dextrose (D50w (Vial) Inj) 50 ml UNSCH PRN IV PUSH HYPOGLYCEMIA-SEE COMMENTS; Start 04/01/17 at 15:00 Glucagon (Glucagon Inj) 1 mg UNSCH PRN OTHER HYPOGLYCEMIA-SEE COMMENTS; Start 04/01/17 at 15:00 Insulin Aspart (NovoLOG SUPPLEMENTAL SCALE) 1 ACHS SLIDING SCALE SQ Last administered on 04/02/17 12:29; Start 04/01/17 at 17:00 Heparin Sodium/ Sodium Chloride 1,000 ml @ As Directed STK-MED ONCE .ROUTE Last administered on 04/01/17 15:39; Start 04/01/17 at 15:39; Stop 04/01/17 at 15:40; Status DC Midazolam HCl (Versed Inj) 2 mg STK-MED ONCE .ROUTE Last administered on 16:07; Start 04/01/17 at 15:46; Stop 04/01/17 at 15:47; Status DC Fentanyl Citrate (fentaNYL INJ) 100 mcg STK-MED ONCE .ROUTE Last administered on 04/01/17 16:08; Start 04/01/17 at 15:46; Stop 04/01/17 at 15:47; Status DC Midazolam HCl (Versed Inj) 2 mg STK-MED ONCE .ROUTE Last administered on 16:09; Start 04/01/17 at 16:09; Stop 04/01/17 at 16:10; Status DC Heparin Sodium (Porcine) (Heparin Inj) 10,000 units STK-MED ONCE .ROUTE Last administered on 04/01/17 16:41; Start 04/01/17 at 16:39; Stop 04/01/17 at 16 :40; Status DC Nitroglycerin 5 ml @ As Directed STK-MED ONCE .ROUTE Last administered on 04/01 16:41; Start 04/01/17 at 16:39; Stop 04/01/17 at 16:40; Status DC Verapamil HCl (Isoptin Inj) 5 mg STK-MED ONCE .ROUTE Last administered on 04/01 16:41; Start 04/01/17 at 16:40; Stop 04/01/17 at 16:41; Status DC Isosorbide Mononitrate (Imdur) 30 mg DAILY@07 PO Last administered on 08:44; Start 04/02/17 at 07:00 Iohexol (OMNIPAQUE 350 INJ (Informatics Pharmacist)) 100 ml STK-MED ONCE OTHER ; Start at 08:15; Stop 04/02/17 at 08:16; Status DC Iohexol (OMNIPAQUE 350 INJ (Informatics Pharmacist)) 50 ml STK-MED ONCE OTHER ; Start at 08:15; Stop 04/02/17 at 08:16; Status DC Heparin Sodium (Porcine) (Heparin Inj) 5,000 units Q12H SQ Last administered on 04/03/17 04:18; Start 04/02/17 at 16:00 Famotidine (Pepcid) 10 mg BID PO Last administered on 04/02/17 21:00; Start 04/02/17 at 21:00 Iohexol (Omnipaque 350 Inj) 99 ml STK-MED ONCE IVCONTRAST Last administered on 04/02/17 14:57; Start 04/02/17 at 14:57; Stop 04/02/17 at 14:58; Status DC Sennosides (Senokot) 17.2 mg Q12H PRN PO Moderate constipation Last administered on 04/03/17 00:03; Start 04/02/17 at 22:00 Acetaminophen (Tylenol) 650 mg Q4H PRN PO MILD TO MODERATE PAIN Last administered on 04/02/17 22:13; Start 04/02/17 at 22:00 A/P Problem List: (1) Hypertension ICD Code: I10 - Essential (primary) hypertension (2) Diabetes ICD Code: E11.9 - Type 2 diabetes mellitus without complications (3) Non-STEMI (non-ST elevated myocardial infarction) ICD Code: I21.4 - Non-ST elevation (NSTEMI) myocardial infarction Status: Acute (4) CHF (congestive heart failure) ICD Code: I50.9 - Heart failure, unspecified Status: Acute Assessment and Plan A/P NSTEMI: S/P heart catheterization. Severe disease in 3 out of 4 grafts. - Heparin drip and nitro drip discontinued. - Cardiology following. Optimize medical management for ischemia with CHICHI inhibitor, calcium channel lynn, Imdur. - Continue aspirin. Patient is allergic to statin and metoprolol. Acute systolic CHF: Elevated BNP, chest x-ray reviewed, consistent with mild congestive failure. LVEF of 15-20% on heart catheterization. - Preliminary TTE per cardiology revealed severe LV dysfunction and aortic stenosis. - Status post 1 dose of 40 mg IV Lasix. Continue with 20 g IV twice a day. will switch to po sson if ok with cardiology. Severe aortic stenosis: Cardiology following. - Cardiothoracic surgery consulted for TAVR. Diabetes: - Hold metformin. - Sliding scale insulin with Accu-Cheks. GI prophylaxis: Started Famotidine. Stool softener PRN constipation. DVT PPx: on sq heparin Discharge Planning d/w Dr. Chatterjee and the patient was cleared for discharge. f/u; pcp, cardiology and CT surgery. see med list. d/w the patient and RN. time spent 32 min. Problem Qualifiers (1) CHF (congestive heart failure): Qualified Codes: I50.9 - Heart failure, unspecified Geremias Khoury MD Apr 03, 2017 08:04
[2017-04-03] MEDS: ISOSORBIDE MONONITRATE 30 MG TAB PO SCH (08:39)
[2017-04-03] MEDS: FUROSEMIDE 20 MG/2 ML VIAL IV PUSH SCH (08:39)
[2017-04-03] MEDS: ASPIRIN 81 MG CHEW TAB CHEW SCH (08:41)
[2017-04-03] MEDS: VERAPAMIL HCL 80 MG TAB PO SCH (08:41)
[2017-04-03] MEDS: ENALAPRIL MALEATE 10 MG TAB PO SCH (08:41)
[2017-04-03] MEDS: SODIUM CHLORIDE 0.9% FLUSH 10 ML FLUSH IV FLUSH SCH (08:42)
[2017-04-03] MEDS: clonazePAM 0.5 MG TAB PO SCH (08:42)
[2017-04-03] MEDS: FAMOTIDINE 20 MG TAB PO SCH (08:42)
--- NOTE | 2017-04-03 09:12 | ECHRPT ---
Indication: CONCLUSIONS Moderately dilated left ventricle. Mild concentric left ventricular hypertrophy. There is diffuse global hypokinesis with distinct regional wall motion abnormalities. The left atrial size is lyalhgik-fs-cyawibzi dilated. Cmkhzdfg-vf-tdatds mitral valve regurgitation. Moderate thickening of the aortic valve leaflets. Zuxh-bi-wrdulnvs aortic valve regurgitation. Severe aortic valve stenosis. No pericardial effusion BP: 121 / 73 HR: Rhythm: Sinus MEASUREMENTS (Male / Female) Normal Values Technical Quality:Fair 2D ECHO LV Diastolic Diameter PLAX 6.9 cm 4.2 - 5.9 / 3.9 - 5.3 cm LV Systolic Diameter PLAX 6.5 cm IVS Diastolic Thickness 1.2 cm 0.6 - 1.0 / 0.6 - 0.9 cm LVPW Diastolic Thickness 1.2 cm 0.6 - 1.0 / 0.6 - 0.9 cm LV Relative Wall Thickness 0.4 LVOT Diameter 2.9 cm Aortic Root Diameter 3.9 cm LA Systolic Diameter LX 4.5 cm 3.0 - 4.0 / 2.7 - 3.8 cm LA Volume Index 56.5 cm/m 16 - 28 cm/m DOPPLER AV Peak Velocity 557.0 cm/s AV Peak Gradient 124.1 mmHg AV Mean Gradient 71.0 mmHg AV Velocity Time Integral 112.0 cm AI Peak Velocity 441.0 cm/s AI Peak Gradient 77.8 mmHg AI Pressure Half Time 307.0 ms LVOT Peak Velocity 74.4 cm/s LVOT Peak Gradient 2.2 mmHg LVOT Velocity Time Integral 14.3 cm AV Area Cont Eq vti 0.8 cm AV Area Cont Eq pk 0.9 cm Mitral E Point Velocity 107.0 cm/s Mitral A Point Velocity 68.6 cm/s Mitral E to A Ratio 1.6 LV E' Lateral Velocity 4.0 cm/s Mitral E to LV E' Lateral Ratio 26.8 LV E' Septal Velocity 2.8 cm/s Mitral E to LV E' Septal Ratio 37.8 PV Peak Velocity 69.2 cm/s PV Peak Gradient 1.9 mmHg FINDINGS LEFT VENTRICLE Moderately dilated left ventricle. Mild concentric left ventricular hypertrophy. There is diffuse global hypokinesis with distinct regional wall motion abnormalities. LEFT ATRIUM The left atrial size is aenufjdg-ic-vzyzphco dilated. MITRAL VALVE Mxtwwoia-fn-qywwzk mitral valve regurgitation. AORTIC VALVE Moderate thickening of the aortic valve leaflets. Jaxs-ko-soqzolkh aortic valve regurgitation. Severe aortic valve stenosis. Eleuterio Chatterjee-Carol MD Edited by: EARTHTORY CV Towboat Operator (Electronically Signed) Final Date:02 April 2017 12:28 Amended: 03 April 2017 09:11
--- NOTE | 2017-04-03 09:15 | PD.CARD.PN ---
Subjective Subjective Remarks no overnight events no cv complaints off heparin drip and nitro drip s/p LHC Appreciate CT recs Objective Medications Current Medications Medications (Trade) Dose Ordered Sig/Chika Route Start Time Stop Time Status Last Admin Nitroglycerin/ Dextrose 250 ml @ 1.5 mls/hr TITRATE PRN IV 04/01/17 11:15 04/01/17 11:43 (Aspirin Chew) 81 mg DAILY CHEW 04/02/17 09:00 04/03/17 08:41 (KlonoPIN) 0.5 mg BID PO 04/01/17 21:00 04/03/17 08:42 (Vasotec) 20 mg DAILY PO 04/02/17 09:00 04/03/17 08:41 (Isoptin) 80 mg BID PO 04/01/17 21:00 04/03/17 08:41 (NS Flush) 2 ml BID IV FLUSH 04/01/17 21:00 04/03/17 08:42 (NS Flush) 2 ml UNSCH PRN IV FLUSH 04/01/17 12:15 (Morphine Inj) 2 mg Q4HR PRN IV PUSH 04/01/17 12:15 04/03/17 00:03 (Lasix Inj) 20 mg BID@09,18 IV PUSH 04/02/17 09:00 04/03/17 08:39 (D50w (Vial) Inj) 50 ml UNSCH PRN IV PUSH 04/01/17 15:00 (Glucagon Inj) 1 mg UNSCH PRN OTHER 04/01/17 15:00 (NovoLOG SUPPLEMENTAL SCALE) 1 ACHS SLIDING SCALE SQ 04/01/17 17:00 04/02/17 12:29 (Imdur) 30 mg DAILY@07 PO 04/02/17 07:00 04/03/17 08:39 (Heparin Inj) 5,000 units Q12H SQ 04/02/17 16:00 04/03/17 04:18 (Pepcid) 10 mg BID PO 04/02/17 21:00 04/03/17 08:42 (Senokot) 17.2 mg Q12H PRN PO 04/02/17 22:00 04/03/17 00:03 (Tylenol) 650 mg Q4H PRN PO 04/02/17 22:00 04/02/17 22:13 Vital Signs / I&O Vital Signs Date Time Temp Pulse Resp B/P (MAP) Pulse Ox O2 Delivery O2 Flow Rate FiO2 04/03/17 06:00 74 04/03/17 05:00 68 04/03/17 04:00 70 04/03/17 03:00 99.1 67 16 117/72 (87) 94 04/03/17 03:00 60 04/03/17 02:00 58 04/03/17 01:00 66 04/03/17 00:17 16 04/03/17 00:15 95 Room Air 04/02/17 23:53 18 04/02/17 23:00 98.9 89 18 115/76 (89) 95 04/02/17 23:00 96 04/02/17 22:00 78 04/02/17 21:00 82 04/02/17 20:45 21 04/02/17 20:00 78 04/02/17 19:00 99.8 76 18 115/77 (90) 95 04/02/17 19:00 78 04/02/17 19:00 95 Room Air 04/02/17 18:07 93 21 04/02/17 17:00 75 04/02/17 15:00 98.5 69 18 107/69 (82) 93 04/02/17 11:00 99.3 74 18 111/76 (88) 93 04/02/17 11:00 74 I/O 04/02/17 04/02/17 04/02/17 04/03/17 04/03/17 04/03/17 07:00 15:00 23:00 07:00 15:00 23:00 Intake Total 720 ml 480 ml Output Total 1130 ml 925 ml Balance -410 ml -445 ml Intake Oral 720 ml 480 ml Output Urine Total 1130 ml 925 ml Physical Exam GENERAL: Well-nourished, well-developed patient. SKIN: Warm and dry. HEAD: Normocephalic. EYES: No scleral icterus. No injection or drainage. NECK: Supple, trachea midline. No JVD or lymphadenopathy. CARDIOVASCULAR: Regular rate and rhythm 2/6 CORNELL murmurs, gallops, or rubs. RESPIRATORY: Breath sounds equal bilaterally. No accessory muscle use. GASTROINTESTINAL: Abdomen soft, non-tender, nondistended. EXTREMITIES: No cyanosis, or edema. NEUROLOGICAL: Awake, alert, and oriented x 3. Non-focal. Laboratory Laboratory Tests Test 04/03/17 04:30 04/03/17 04:56 White Blood Count 7.6 TH/MM3 Red Blood Count 4.16 MIL/MM3 Hemoglobin 12.7 GM/DL Hematocrit 37.0 % Mean Corpuscular Volume 89.1 FL Mean Corpuscular Hemoglobin 30.7 PG Mean Corpuscular Hemoglobin Concent 34.4 % Red Cell Distribution Width 13.4 % Platelet Count 206 TH/MM3 Mean Platelet Volume 7.8 FL Blood Urea Nitrogen 13 MG/DL Creatinine 1.05 MG/DL Random Glucose 101 MG/DL Calcium Level 8.7 MG/DL Sodium Level 134 MEQ/L Potassium Level 3.6 MEQ/L Chloride Level 101 MEQ/L Carbon Dioxide Level 24.4 MEQ/L Anion Gap 9 MEQ/L Estimat Glomerular Filtration Rate 69 ML/MIN Imaging Last Impressions Chest CTA 04/02/17 0000 Signed Impressions: Service Date/Time: Sunday, April 02, 2017 14:17 - CONCLUSION: 1. Calcified tricuspid aortic valve. 2. Coronary artery atherosclerotic calcifications. 3. Cardiomegaly. 4. Small bilateral pleural effusions with passive atelectasis. 5. Hepatic steatosis. 6. 50%% stenosis involving the right renal artery. Arnol Baker Jr., MD Chest X-Ray 04/01/17 0945 Signed Impressions: Service Date/Time: March 09:58 - CONCLUSION: 1. Interstitial prominence in the lower lung zones bilaterally could be related to atelectasis or could represent mild interstitial edema. 2. Mildly enlarged cardiac silhouette in this patient post CABG. 3. Multiple nodules likely representing granulomas from prior granulomatous infection. Jez Gonzalez MD Assessment and Plan Problem List: (1) Aortic stenosis, severe ICD Codes: I35.0 - Nonrheumatic aortic (valve) stenosis Plan: Doing well this am Denies CP Ambulating without difficulty TAVR w/o done yesterday Appreciated CT recs Recommendations 1. Continue aggressive medical management for CAD 2. Start Ranexa 500mg PO BID and Plavix 75mg PO daily 3. Cont PO Lasix 4. Encourage ambulation 5. Stable to d/c home today and f/u with [facility] Heart Valve Team for TAVR (2) CHF (congestive heart failure) ICD Codes: I50.9 - Heart failure, unspecified Status: Acute (3) Non-STEMI (non-ST elevated myocardial infarction) ICD Codes: I21.4 - Non-ST elevation (NSTEMI) myocardial infarction Status: Acute (4) Diabetes ICD Codes: E11.9 - Type 2 diabetes mellitus without complications (5) Hypertension ICD Codes: I10 - Essential (primary) hypertension Problem Qualifiers (1) CHF (congestive heart failure): Qualified Codes: I50.9 - Heart failure, unspecified Eleuterio Cardoza MD Apr 03, 2017 09:15
[2017-04-03] MEDS ORDERED: RANO500 PO (09:40)
[2017-04-03] MEDS ORDERED: ISOS30TA3 PO (09:40)
[2017-04-03] MEDS ORDERED: FURO1TAB62 PO (09:43)
[2017-04-03] MEDS ORDERED: POTA-163 PO (09:43)
--- NOTE | 2017-04-03 09:44 | HHI.DS ---
Discharge Summary Admission Date Apr 01, 2017 at 12:04 Discharge Date: Apr 03, 2017 Admitting Diagnosis non-STEMI, CHF (1) Hypertension ICD Code: I10 - Essential (primary) hypertension Diagnosis: Secondary (2) Diabetes ICD Code: E11.9 - Type 2 diabetes mellitus without complications Diagnosis: Secondary (3) Non-STEMI (non-ST elevated myocardial infarction) ICD Code: I21.4 - Non-ST elevation (NSTEMI) myocardial infarction Diagnosis: Principal Status: Acute (4) CHF (congestive heart failure) ICD Code: I50.9 - Heart failure, unspecified Diagnosis: Principal Status: Acute Procedures cardiac cath Brief History - From Admission 76-year-old male with a medical history significant for coronary artery disease status post CABG, diabetes, hypertension who presented to the hospital with complaint of worsening shortness of breath and chest pain with minimal activity. The patient reports he started having chest discomfort and shortness of breath with activities about a month ago but it has been increasing in severity. He has taken nitroglycerin with some relief. 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 He is chest pain-free at rest but gets significant chest pressure and shortness of breath with minimal activities, even with light walking. Evaluation in the emergency room revealed elevated cardiac enzymes. CBC/BMP: 04/03/17 0430 04/03/17 0456 Significant Findings Laboratory Tests Test 04/01/17 10:10 04/02/17 05:19 04/03/17 04:30 04/03/17 04:56 Red Blood Count 4.49 MIL/MM3 (4.50-5.90) 4.32 MIL/MM3 (4.50-5.90) 4.16 MIL/MM3 (4.50-5.90) Monocytes (%) (Auto) 9.2 % (0.0-8.0) 9.8 % (0.0-8.0) Prothrombin Time 12.2 SEC (9.8-11.6) Activated Partial Thromboplast Time 31.9 SEC (24.3-30.1) Random Glucose 108 MG/DL (74-106) 128 MG/DL (74-106) Estimat Glomerular Filtration Rate 68 ML/MIN (>89) 64 ML/MIN (>89) 69 ML/MIN (>89) Troponin I 0.60 NG/ML (0.02-0.05) B-Type Natriuretic Peptide 666 PG/ML (0-100) Hematocrit 38.6 % (39.0-51.0) 37.0 % (39.0-51.0) Sodium Level 135 MEQ/L (136-145) 134 MEQ/L (136-145) Hemoglobin 12.7 GM/DL (13.0-17.0) Imaging Last Impressions Chest CTA 04/02/17 0000 Signed Impressions: Service Date/Time: Sunday, April 02, 2017 14:17 - CONCLUSION: 1. Calcified tricuspid aortic valve. 2. Coronary artery atherosclerotic calcifications. 3. Cardiomegaly. 4. Small bilateral pleural effusions with passive atelectasis. 5. Hepatic steatosis. 6. 50%% stenosis involving the right renal artery. Arnol Baker Jr., MD Chest X-Ray 04/01/17 0945 Signed Impressions: Service Date/Time: March 09:58 - CONCLUSION: 1. Interstitial prominence in the lower lung zones bilaterally could be related to atelectasis or could represent mild interstitial edema. 2. Mildly enlarged cardiac silhouette in this patient post CABG. 3. Multiple nodules likely representing granulomas from prior granulomatous infection. Jez Gonzalez MD PE at Discharge GENERAL: This is a well-nourished, well-developed patient, in no apparent distress. CARDIOVASCULAR: Regular rate and regular rhythm without murmurs, gallops, or rubs. RESPIRATORY: Clear to auscultation. Breath sounds equal bilaterally. No wheezes , rales, or rhonchi. GASTROINTESTINAL: Abdomen soft, non-tender, nondistended. Normal, active bowel sounds MUSCULOSKELETAL: Extremities without clubbing, cyanosis, or edema. NEURO: Alert & Oriented x4 to person, place, time, situation. Moves all ext x4 Hospital Course NSTEMI: S/P heart catheterization. Severe disease in 3 out of 4 grafts. - Heparin drip and nitro drip discontinued. - Cardiology following. Optimize medical management for ischemia with CHICHI inhibitor, calcium channel lynn, Imdur. - Continue aspirin. Patient is allergic to statin and metoprolol. Acute systolic CHF: Elevated BNP, chest x-ray reviewed, consistent with mild congestive failure. LVEF of 15-20% on heart catheterization. - Preliminary TTE per cardiology revealed severe LV dysfunction and aortic stenosis. - Status post 1 dose of 40 mg IV Lasix. Continue with 20 g IV twice a day. will switch to po sson if ok with cardiology. Severe aortic stenosis: Cardiology following. - Cardiothoracic surgery consulted for TAVR. Diabetes: - Hold metformin. - Sliding scale insulin with Accu-Cheks. GI prophylaxis: Started Famotidine. Stool softener PRN constipation. DVT PPx: on sq heparin Pt Condition on Discharge: Stable Discharge Disposition: Discharge Home Discharge Time: > 30 minutes Discharge Instructions DIET: Follow Instructions for: Heart Healthy Diet, Diabetic Diet Activities you can perform: Regular-No Restrictions Follow up Referrals: Cardiology PCP Follow-up New Medications: Furosemide (Lasix) 20 Mg Tab 20 MG PO BID for diuretic, #60 TAB 0 Refills Potassium Chloride ER (Potassium Chloride ER) 20 Meq Tab 20 MEQ PO DAILY for Electrolyte Replacement, #30 TAB 0 Refills Isosorbide Mononitrate ER (Isosorbide Mononitrate ER) 30 Mg Aubree 30 MG PO DAILY@07 for cad for 30 Days, TAB 0 Refills Ranolazine ER 12 HR (Ranexa ER 12 HR) 500 Mg Tab 500 MG PO Q12HR for cad for 30 Days, TAB 0 Refills Continued Medications: Acetaminophen (Mapap) 500 Mg Tab 500 MG PO Q4-6H PRN for PAIN, TAB 0 Refills Aspirin (Aspirin) 81 Mg Chew 81 MG CHEW DAILY, TAB 0 Refills Clonazepam (Clonazepam) 0.5 Mg Tab 0.5 MG PO BID, TAB 0 Refills Clopidogrel (Plavix) 75 Mg Tab 75 MG PO HS for Blood Clot Prevention, TAB 0 Refills Enalapril (Enalapril) 20 Mg Tab 20 MG PO DAILY, TAB 0 Refills Metformin (Metformin) 1,000 Mg Tab 1000 MG PO HS for Blood Sugar Management, TAB 0 Refills Nitroglycerin SL (Nitroglycerin SL) 0.4 Mg Subl 0.4 MG SL DIRECTED PRN for CHEST PAIN, TAB.SL 0 Refills ONE TABLET UNDER THE TONGUE NEEDED FOR CHEST PAIN, MAY REPEAT EVERY FIVE MINUTES FOR A TOTAL OF 3 DOSES OR CALL 911 IF NO RELIEF Sennosides (Sennosides) 8.6 Mg Tab 8.6 MG PO BID for Constipation, TAB 0 Refills Verapamil (Verapamil) 80 Mg Tab 80 MG PO BID, TAB 0 Refills Discontinued Medications: Clonidine (Clonidine) 0.1 Mg Tab 0.1 MG PO BID for Blood Pressure Management, TAB 0 Refills Geremias Khoury MD Apr 03, 2017 09:44
[2017-04-03] MEDS ORDERED: RANOLAZINE 500 MG EXTENDED RELEASE TAB PO SCH (10:00)
[2017-04-03] MEDS ORDERED: CLOPIDOGREL 75 MG TAB PO SCH (10:00)
--- NOTE | 2017-04-03 11:07 | HHI.PR ---
Addendum To [facility] Progress Not Reason for addendum: Additonal documentation (was notified by the RN that the patient expressed some suicidal thoughts/ideation- will hold dc planning and consult psych.) Geermias Khoury MD Apr 03, 2017 11:07
--- NOTE | 2017-04-03 18:23 | PD.PSY.CON ---
Provisional Diagnosis Admission Date Apr 01, 2017 at 12:04 [place] I. 1. Adjustment disorder with anxiety [place] II. Deferred History of Present Illness Service Psychiatry Consult Requested By Dr. Khoury Reason for Consult Suicidal ideation Primary Care Physician Non-Staff HPI Mr. Mtz is a 76-year-old male with a reported history of anxiety on Klonopin who was sent to the ER by his civil engineering director for possible cardiac catheterization. He has undergone left heart catheterization and is presently admitted to the medical floor. Psychiatry is consulted because the patient verbalized some statements regarding suicide to the nurse. Dr. Khoury was notified and placed patient under Morgan Act I am told by RN. Reviewing the electronic medical record, it appears this is patient's first visit to [facility]. Patient seen and examined. Chart reviewed. Case discussed with nursing staff. I have reviewed the patient's statements to nurse as detailed in suicide risk assessment in detail. There has been no evidence of any suicidality or homicidality while on the medical unit. 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 the RN). He adamantly denies that he was trying to convey any genuine suicidal ideation. He points out the incongruity between the idea that he might be suicidal and the lengths he has gone to preserve his physical health. He adamantly denies any suicidal ideation, intent or plan on direct questioning and contracts for safety. He says that he would never hurt himself because he would not want to hurt his and "I love my more than anything." He is future oriented. He does admit to feeling somewhat anxious on account of his medical issues and describes some associated sleep disturbance for which he takes Klonopin. No low mood or elevated mood, nor can I elicit any depressive or hypomanic/manic symptoms from this patient at this time. He denies current audiovisual hallucinations, and I can elicit no delusional beliefs. The remainder of the psychiatric ROS is negative. With the patient's permission, I have obtained collateral from the patient's separate from the patient. She notes that she previously worked in the mental health field in [place]. She denies having any concerns whatsoever regarding the patient's safety. She has never known him to make suicidal statements or to engage in suicidal behavior. She has absolutely concerns that he is suicidal now. She has no concerns that he is presently psychiatrically unstable. I have educated her regarding the means to get the patient to urgent psychiatric care, should the need arise, including voluntary emergent psychiatric evaluation, Morgan act and ex parte. I have recommended to her and to the patient as well that the home be secured of all potential means of harm to self or others in advance of patient's return to the home including but not limited to guns and medications. Past psychiatric history: The patient reports a history of anxiety. He previously followed with a female psychiatrist who recently retired and is prescribed low-dose Klonopin, which he takes chiefly at night to help with sleep. He denies any history of psychiatric admissions. He denies any history of suicide attempts. He is trying to find a new psychiatrist. Family history: The patient reports that his granddaughter struggled with alcoholism and completed suicide. No other family psychiatric history. Chemical dependency history: The patient reports that he is a social drinker. He denies any other substance use. Social history: The patient has been to his for 8 years. He has 2 sons and a daughter. He obtained the equivalent of 2 years of college education. 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 He also served in the [employer] for 6 years in the [employer] for 2 years as well as the [employer]. He did not see combat. 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 He denies any legal issues. When I ask about baptist beliefs he says "what goes around comes around" alluding to a belief hedy to karma. He keeps a 9 mm Glock and a .38 pistol. He denies ever having a suicide plan involving a gun. He is agreeable to having these guns secured. Review of Systems Except as stated in HPI: all other systems reviewed are Neg Past Family Social History Coded Allergies: Sulfa (Sulfonamide Antibiotics) (Verified Allergy, Severe, Hives, 04/01/17 ) hydrocodone (Verified Adverse Reaction, Severe, Hallucinations, 04/01/17) metoprolol (Verified Adverse Reaction, Severe, Joint Pain, 04/01/17) niacin (Verified Adverse Reaction, Severe, Chest Pain, 04/01/17) potassium chloride (Verified Adverse Reaction, Severe, Chest Pain, ) Nmyjbde-Kjd-Zvf Reductase Inhibitor (Verified Adverse Reaction, Intermediate, Dehydration, 04/01/17) amlodipine (Verified Adverse Reaction, Intermediate, Joint Pain, 04/01/17) cholecalciferol (vitamin D3) (Verified Adverse Reaction, Unknown, 04/01/17 ) Uncoded Allergies: MULTIVITAMIN (Adverse Reaction, Intermediate, Migraine, 04/01/17) Past Medical History See electronic medical record Active Scripts Potassium Chloride ER (Potassium Chloride ER) 20 Meq Tab, 20 MEQ PO DAILY for Electrolyte Replacement, #30 TAB 0 Refills Prov:Geremias Khoury MD 04/03/17 Furosemide (Lasix) 20 Mg Tab, 20 MG PO BID for diuretic, #60 TAB 0 Refills Prov:Geremias Khoury MD 04/03/17 Isosorbide Mononitrate ER (Isosorbide Mononitrate ER) 30 Mg Aubree, 30 MG PO DAILY@07 for cad for 30 Days, TAB 0 Refills Prov:Geremias Khoury MD 04/03/17 Ranolazine ER 12 HR (Ranexa ER 12 HR) 500 Mg Tab, 500 MG PO Q12HR for cad for 30 Days, TAB 0 Refills Prov:Geremias Khoury MD 04/03/17 Reported Medications Clonazepam (Clonazepam) 0.5 Mg Tab, 0.5 MG PO BID, TAB 0 Refills 04/01/17 Nitroglycerin SL (Nitroglycerin SL) 0.4 Mg Subl, 0.4 MG SL DIRECTED Y for CHEST PAIN, TAB.SL 0 Refills ONE TABLET UNDER THE TONGUE NEEDED FOR CHEST PAIN, MAY REPEAT EVERY FIVE MINUTES FOR A TOTAL OF 3 DOSES OR CALL 911 IF NO RELIEF 04/01/17 Acetaminophen (Mapap) 500 Mg Tab, 500 MG PO Q4-6H Y for PAIN, TAB 0 Refills 04/01/17 Clonidine (Clonidine) 0.1 Mg Tab, 0.1 MG PO BID for Blood Pressure Management, TAB 0 Refills 04/01/17 Sennosides (Sennosides) 8.6 Mg Tab, 8.6 MG PO BID for Constipation, TAB 0 Refills 04/01/17 Enalapril (Enalapril) 20 Mg Tab, 20 MG PO DAILY, TAB 0 Refills 04/01/17 Aspirin (Aspirin) 81 Mg Chew, 81 MG CHEW DAILY, TAB 0 Refills 04/01/17 Verapamil (Verapamil) 80 Mg Tab, 80 MG PO BID, TAB 0 Refills 04/01/17 Metformin (Metformin) 1,000 Mg Tab, 1000 MG PO HS for Blood Sugar Management, TAB 0 Refills 04/01/17 Clopidogrel (Plavix) 75 Mg Tab, 75 MG PO HS for Blood Clot Prevention, TAB 0 Refills 04/01/17 Current Medications Medications (Trade) Dose Ordered Sig/Chika Route Start Time Stop Time Status Last Admin Nitroglycerin/ Dextrose 250 ml @ 1.5 mls/hr TITRATE PRN IV 04/01/17 11:15 04/01/17 11:43 (Aspirin Chew) 81 mg DAILY CHEW 04/02/17 09:00 04/03/17 08:41 (KlonoPIN) 0.5 mg BID PO 04/01/17 21:00 04/03/17 08:42 (Vasotec) 20 mg DAILY PO 04/02/17 09:00 04/03/17 08:41 (Isoptin) 80 mg BID PO 04/01/17 21:00 04/03/17 08:41 (NS Flush) 2 ml BID IV FLUSH 04/01/17 21:00 04/03/17 08:42 (NS Flush) 2 ml UNSCH PRN IV FLUSH 04/01/17 12:15 (Morphine Inj) 2 mg Q4HR PRN IV PUSH 04/01/17 12:15 04/03/17 00:03 (Lasix Inj) 20 mg BID@09,18 IV PUSH 04/02/17 09:00 04/03/17 08:39 (D50w (Vial) Inj) 50 ml UNSCH PRN IV PUSH 04/01/17 15:00 (Glucagon Inj) 1 mg UNSCH PRN OTHER 04/01/17 15:00 (NovoLOG SUPPLEMENTAL SCALE) 1 ACHS SLIDING SCALE SQ 04/01/17 17:00 04/02/17 12:29 (Imdur) 30 mg DAILY@07 PO 04/02/17 07:00 04/03/17 08:39 (Heparin Inj) 5,000 units Q12H SQ 04/02/17 16:00 04/03/17 04:18 (Pepcid) 10 mg BID PO 04/02/17 21:00 04/03/17 08:42 (Senokot) 17.2 mg Q12H PRN PO 04/02/17 22:00 04/03/17 00:03 (Tylenol) 650 mg Q4H PRN PO 04/02/17 22:00 04/02/17 22:13 (Plavix) 75 mg DAILY PO 04/03/17 10:00 04/03/17 10:27 (Ranexa) 500 mg Q12HR PO 04/03/17 10:00 04/03/17 10:27 Family Psych History See above Social History See above Patient's Strengths (min. 2) Supportive . Verbally fluent. Physical Exam Physical examination completed by primary team. On my examination today, the patient appears to be in no acute physical distress. No motor abnormalities noted. Labs and vitals reviewed: Vital Signs Vital Signs Date Time Temp Pulse Resp B/P (MAP) Pulse Ox O2 Delivery O2 Flow Rate FiO2 04/03/17 12:00 69 04/03/17 11:27 96 04/03/17 11:00 98.3 18 90/56 (67) 04/03/17 07:00 Room Air 04/02/17 20:45 21 04/01/17 23:20 2.00 I/O 04/03/17 04/03/17 04/04/17 08:00 16:00 00:00 Intake Total 480 ml Output Total 925 ml Balance -445 ml Lab Results Item Value Date Time White Blood Count 7.6 TH/MM3 04/03/17 0430 Hemoglobin 12.7 GM/DL L 04/03/17 0430 Platelet Count 206 TH/MM3 04/03/17 0430 Sodium Level 134 MEQ/L L 04/03/17 0456 Potassium Level 3.6 MEQ/L 04/03/17 0456 Chloride Level 101 MEQ/L 04/03/17 0456 Carbon Dioxide Level 24.4 MEQ/L 04/03/17 0456 Blood Urea Nitrogen 13 MG/DL 04/03/17 0456 Creatinine 1.05 MG/DL 04/03/17 0456 Estimat Glomerular Filtration Rate 69 ML/MIN L 04/03/17 0456 Mental Status Examination Appearance: Appropriate Consciousness: Alert Orientation: x4 Motor Activity: Other (no motor abnormalities noted) Speech: Unremarkable Language: Adequate Fund of Knowledge: Adequate Attention and Concentration: Adequate Memory: Unremarkable Mood: Anxious Affect: Appropriate Thought Process & Associations: Intact Thought Content: Appropriate Hallucination Type: None Delusion Type: None Suicidal Ideation: No Suicidal Plan: No Suicidal Intention: No Homicidal Ideation: No Homicidal Plan: No Homicidal Intention: No Insight: Adequate Judgment: Adequate Mental Status Exam Remarks Registration 3 out of 3, recall 2 out of 3 at 3 minutes. Able to spell the word world forward and gives it backwards as DLLROW. Able to name 2 items and repeat a phrase. Able to name the current president and the preceding president. Assessment & Plan Problem List: (1) Adjustment disorder with anxiety ICD Codes: F43.22 - Adjustment disorder with anxiety Assessment & Plan 76-year-old male with psychiatric history as detailed above who is presently admitted to the medical floor. Psychiatry is consulted out of concern for possible suicidal ideation. Patient denies that he was trying to convey any genuine suicidal ideation to the nurse. He denies any suicidal ideation, intent or plan now on direct questioning and contracts for safety. He does describe some anxiety, chiefly related to his health status, but otherwise describes a paucity of psychiatric symptoms. There is no evidence of any severely unstable mood, anxiety or psychotic disorder in this patient at this time. I have obtained reassuring collateral from his . I have considered the possibility of purposeful underreporting of symptoms by patient in service of obtaining discharge, but he seems quite earnest and genuine in his report of symptoms with appropriate mobilization of affect (e.g. when discussing how he could not hurt himself because of the impact it would have on his ), and so this seems less likely. He appears to be attending to his basic needs. Synthesizing this information and weighing the acute, chronic and protective factors and based on the available evidence, I car washer to a reasonable degree of medical certainty that the patient is at low imminent risk of harm to self or others from a mental illness as defined under the Morgan act and his level of function is adequate for outpatient care. Patient does not presently meet the Morgan act criteria, and I lift the Morgan act. He is not interested involuntary psychiatric hospitalization at this time. I do think he would benefit from outpatient psychiatric follow-up and have recommended that he identify and follow with an outpatient psychiatrist in the community. I have recommended to both patient and that the home be secured of potential means of self-harm out of an abundance of caution. I have counseled the patient regarding warning signs for need to return to the psychiatric emergency room as part of a general safety plan. I have counseled regarding means to get patient to urgent psychiatric treatment, should the need arise. Patient is psychiatrically clear for discharge. Case discussed with Dr. Khoury. Thank you very much for this consultation. Please call or page with questions. Discharge Planning Per primary team Request HC Surrog/Guard Advoc?: No Darrel Martins MD Apr 03, 2017 18:23
--- NOTE | 2017-04-05 11:00 | RSPPFT ---
DATE OF PROCEDURE: 04/02/17 COMMENTS: Spirometry with normal flow rates and ratios and no suggestion of airways obstruction or restriction. IMPRESSION: 1. Essentially normal spirometry.
== END 2017-04-03 18:15 | disposition home or self-care (01) | DRG 280 ==
LOC: NEPE 09:25 → NEDA 12:04 → HCVI 17:25 → HCPC 04-02 23:30
PROVIDERS: ADMIT Internal Medicine; ATTEND Internal Medicine
PROC: B2111ZZ Fluoroscopy of Multiple Coronary Arteries using Low Osmolar Contrast (ICD-10-PCS; 2017-04-01)
PROC: B2151ZZ Fluoroscopy of Left Heart using Low Osmolar Contrast (ICD-10-PCS; 2017-04-01)
PROC: B2181ZZ Fluoroscopy of Left Internal Mammary Bypass Graft using Low Osmolar Contrast (ICD-10-PCS; 2017-04-01)
PROC: B2121ZZ Fluoroscopy of Single Coronary Artery Bypass Graft using Low Osmolar Contrast (ICD-10-PCS; 2017-04-01)
PROC: B41F1ZZ Fluoroscopy of Right Lower Extremity Arteries using Low Osmolar Contrast (ICD-10-PCS; 2017-04-01)
PROC: 4A023N7 Measurement of Cardiac Sampling and Pressure, Left Heart, Percutaneous Approach (ICD-10-PCS; principal; 2017-04-01 15:00)
DX: I21.4 Non-ST elevation (NSTEMI) myocardial infarction (principal); I50.21 Acute systolic (congestive) heart failure; E11.9 Type 2 diabetes mellitus without complications; I35.0 Nonrheumatic aortic (valve) stenosis; I25.810 Atherosclerosis of coronary artery bypass graft(s) without angina pectoris; I11.0 Hypertensive heart disease with heart failure; I25.10 Atherosclerotic heart disease of native coronary artery without angina pectoris; E78.5 Hyperlipidemia, unspecified; F43.22 Adjustment disorder with anxiety; H91.90 Unspecified hearing loss, unspecified ear; I25.2 Old myocardial infarction; Z88.8 Allergy status to other drugs, medicaments and biological substances; Z87.891 Personal history of nicotine dependence; Z95.1 Presence of aortocoronary bypass graft; Z79.84 Long term (current) use of oral hypoglycemic drugs; Z95.5 Presence of coronary angioplasty implant and graft
CPT/HCPCS: 71010; 74174; 80048; 82040; 82550; 82552; 82948; 83735; 83880; 84484; 85025; 85027; 85610; 85730; 93005; 93306; 93459; 94010; 96365; 96368; 96375; C1760; C1769; C1893; G0269; J1644; J1815; J1940; J2250; J2270; J3010; Q9967

== ENCOUNTER 2017-05-09 22:52 | Inpatient (IN) | payer OTHER, MEDICARE ==
[~2017-05-09] VITALS: Ht 172.7 cm; Wt 86.0 kg
[~2017-05-09 22:52] MED LIST: ASPI-516 CHEW; CLON0.5T PO; ENAL20TA PO; FURO1TAB62 PO; ISOS30TA3 PO; MAPA500T PO; METF1000 PO; NITR1SUB3 SL; PLAV75TA29 PO; POTA-163 PO; RANO500 PO; SENN8.6T81 PO; VERA80TA PO
[2017-05-09 22:54] VITALS: BP 93/50; PULSE 75; RESP 16; TEMP 98.8; O2SAT 99
[2017-05-09 22:57] VITALS: RESP 16; O2SAT 100
[2017-05-09] MEDS ORDERED: NITROGLYCERIN 0.4 MG SL 25 TABS/BTL SL STA (22:58)
[2017-05-09] MEDS ORDERED: HEPARIN SODIUM - IV 10,000 UNITS/10 ML VIAL IV PUSH STA (22:58)
[2017-05-09] MEDS ORDERED: SODIUM CHLOR 0.9% 1000 ML INJ 1,000 ML IV ONE ×2 (22:58→23:00)
[2017-05-09] MEDS ORDERED: ASPIRIN 81 MG CHEW TAB PO STA (22:58)
[2017-05-09] MEDS ORDERED: NITROGLYCERIN-D5W 50 MG/250 ML 250 ML IV PRN (23:00)
[2017-05-09] MEDS ORDERED: SODIUM CHLORIDE 0.9% FLUSH 10 ML FLUSH IVF PRN (23:00)
[2017-05-09] MEDS ORDERED: ETOMIDATE 20 MG/10 ML VIAL ONE (23:04)
[2017-05-09] MEDS ORDERED: SUCCINYLCHOLINE CHLORIDE 200 MG/10 ML VIAL ONE (23:05)
[2017-05-09 23:09] VITALS: O2SAT 100
[2017-05-09 23:11] LABS: I-STAT POTASSIUM 3.9 MMOL/L (3.5-4.9)
[2017-05-09 23:15] LABS: AUTOMATED NEUTROPHIL # 4.5 TH/MM3 (1.8-7.7); BASOPHIL # 0.1 TH/MM3 (0-0.2); BASOPHIL % 0.7 % (0.0-2.0); EOSINOPHIL # 0.2 TH/MM3 (0-0.4); EOSINOPHIL % 1.8 % (0.0-4.0); HEMATOCRIT 35.8 % (39.0-51.0); LYMPH % 51.6 % (9.0-44.0); LYMPHOCYTE # 5.8 TH/MM3 (1.0-4.8); MEAN CELL VOLUME 90.6 FL (80.0-100.0); MEAN CORPUSCULAR HEMOGLOBIN 31.5 PG (27.0-34.0); MEAN CORPUSCULAR HGB CONC 34.8 % (32.0-36.0); MONO % 5.7 % (0.0-8.0); NEUT % 40.2 % (16.0-70.0); PLATELET COUNT 226 TH/MM3 (150-450); RED BLOOD COUNT 3.95 MIL/MM3 (4.50-5.90); RED CELL DISTRIBUTION WIDTH 13.3 % (11.6-17.2); WHITE BLOOD COUNT 11.3 TH/MM3 (4.0-11.0)
[2017-05-09] MEDS ORDERED: SUCCINYLCHOLINE CHLORIDE 100 MG/5 ML SYRINGE IV PUSH ONE (23:15)
[2017-05-09] MEDS ORDERED: PROPOFOL 1000 MG/100 ML INJ 100 ML IV PRN (23:15)
[2017-05-09] MEDS ORDERED: ETOMIDATE 20 MG/10 ML VIAL IV PUSH ONE (23:15)
[2017-05-09 23:16] LABS: HEMO FLAGS AUTO DIFF
--- NOTE | 2017-05-09 23:17 | PD ---
HPI Chief Complaint: STEMI Alert Time Seen by Provider: 22:57 Travel History International Travel<30 days: No Contact w/Intl Traveler<30days: No History of Present Illness HPI The patient is a 76 year old male who presents to the [facility] emergency department with a history of reportedly collapsing in front of his prior to arrival. She reportedly started CPR on the patient and ambulance services were called. Ambulance services reportedly arrived approximately 3 minutes after the call as they were nearby. They found the patient unresponsive with agonal respiratory effort. The patient's initial rhythm was ventricular fibrillation. The patient was defibrillated and intraosseous access was placed in the right fuller. The patient was given epinephrine 1 mg IV, 1 amp of bicarbonate and had bronchoscopy, initial blood pressure was then 130/90. The patient on arrival is noted to have a blood pressure 93/50. The patient on arrival is noted to be moving his extremities. The patient is noted to have spontaneous respiratory effort. The patient has no gag reflex and an oropharyngeal airway in place. The patient is being assisted with his ventilation by bag valve mask. [facility] Past Medical History Narrative Medical The patient's past medical history is obtained through the electronic medical record and consists of hypertension, diabetes mellitus, history of severe aortic stenosis, history of coronary artery disease status post bypass grafting in 2008. Hx Anticoagulant Therapy: Yes (PLAVIX) Arthritis: Yes Asthma: No Autoimmune Disease: No Anxiety: Yes Depression: Yes Heart Rhythm Problems: No Cancer: Yes (bladder false positive) Cardiac Catheterization: Yes (X1) Cardiovascular Problems: Yes High Cholesterol: Yes Chemotherapy: No Chest Pain: Yes Congestive Heart Failure: No COPD: No Cerebrovascular Accident: No Coronary Artery Disease: Yes Diabetes: Yes Diminished Hearing: Yes (hearing aids) Endocrine: Yes GERD: No Genitourinary: Yes Hiatal Hernia: No Hypertension: Yes Immune Disorder: No Kidney Stones: No Musculoskeletal: Yes Neurologic: No Psychiatric: Yes (depression recently) Reproductive: No Respiratory: No Migraines: No Myocardial Infarction: Yes (X1 IN 2008) Radiation Therapy: No Renal Failure: No Seizures: No Sickle Cell Disease: No Sleep Apnea: No Thyroid Disease: No Ulcer: No Past Surgical History Narrative Surgical The patient's past surgical history is significant for coronary artery bypass grafting in 2009, cardiac catheterization with stent placement Abdominal Surgery: No AICD: No Arteriovenous Shunt: No Cardiac Surgery: Yes (CABG x 4) Coronary Artery Bypass Graft: Yes (X4 VESSELS) Ear Surgery: No Endocrine Surgery: No Eye Surgery: No Genitourinary Surgery: No Gynecologic Surgery: No Insulin Pump: No Joint Replacement: No Oral Surgery: No Pacemaker: No Thoracic Surgery: No Social History Alcohol Use: No Tobacco Use: No Substance Use: No Allergies-Medications (Allergen,Severity, Reaction): Coded Allergies: Sulfa (Sulfonamide Antibiotics) (Verified Allergy, Severe, Hives, 04/01/17 ) hydrocodone (Verified Adverse Reaction, Severe, Hallucinations, 04/01/17) metoprolol (Verified Adverse Reaction, Severe, Joint Pain, 04/01/17) niacin (Verified Adverse Reaction, Severe, Chest Pain, 04/01/17) potassium chloride (Verified Adverse Reaction, Severe, Chest Pain, ) Fyxxxal-Ryh-Fdo Reductase Inhibitor (Verified Adverse Reaction, Intermediate, Dehydration, 04/01/17) amlodipine (Verified Adverse Reaction, Intermediate, Joint Pain, 04/01/17) cholecalciferol (vitamin D3) (Verified Adverse Reaction, Unknown, 04/01/17 ) Uncoded Allergies: MULTIVITAMIN (Adverse Reaction, Intermediate, Migraine, 04/01/17) Reported Meds & Prescriptions Reported Meds & Active Scripts Active Potassium Chloride ER (Potassium Chloride) 20 Meq Tab 20 Meq PO DAILY Lasix (Furosemide) 20 Mg Tab 20 Mg PO BID Isosorbide Mononitrate ER (Isosorbide Mononitrate) 30 Mg Aubree 30 Mg PO DAILY@ 07 30 Days Ranexa ER 12 HR (Ranolazine) 500 Mg Tab 500 Mg PO Q12HR 30 Days Reported Clonazepam 0.5 Mg Tab 0.5 Mg PO BID Nitroglycerin SL (Nitroglycerin) 0.4 Mg Subl 0.4 Mg SL DIRECTED PRN ONE TABLET UNDER THE TONGUE NEEDED FOR CHEST PAIN, MAY REPEAT EVERY FIVE MINUTES FOR A TOTAL OF 3 DOSES OR CALL 911 IF NO RELIEF Mapap (Acetaminophen) 500 Mg Tab 500 Mg PO Q4-6H PRN Sennosides 8.6 Mg Tab 8.6 Mg PO BID Enalapril (Enalapril Maleate) 20 Mg Tab 20 Mg PO DAILY Aspirin 81 Mg Chew 81 Mg CHEW DAILY Verapamil (Verapamil HCl) 80 Mg Tab 80 Mg PO BID Metformin (Metformin HCl) 1,000 Mg Tab 1,000 Mg PO HS Plavix (Clopidogrel Bisulfate) 75 Mg Tab 75 Mg PO HS Review of Systems ROS Limitations: Unresponsive Physical Exam Narrative General: The patient is a well-developed well-nourished male who arrives being bagged with an oropharyngeal airway in place. Head and Neck exam: Head is normocephalic atraumatic. Eyes: extraocular motion testing is unable to be accomplished as the patient arrives unresponsive, pupils are equal round and reactive to light at 4 mm. Nose: Midline septum with pink mucous membranes Mouth: The patient is edentulous. Moist mucus membranes. Posterior oropharynx is not erythematous. No tonsillar hypertrophy. Uvula midline. Airway patent. Neck: No palpable lymphadenopathy. No nuchal rigidity. No thyromegaly. Cardiovascular: Sinus rhythm heart rate in the 70s, with a high-pitched systolic murmur that is 3/6. No gallops or rubs. Lungs: Equal breath sounds bilaterally being assisted with bag valve mask with an oropharyngeal airway in place. No wheezes, rhonchi, or rales. Abdomen: Soft, without tenderness to palpation in all 4 quadrants of the abdomen. No guarding, rebound, or rigidity. Extremities: No clubbing, cyanosis, or edema. The patient has an intraosseous access in place in the right tibia. Neurologic Exam: The patient arrives with a GCS of 6 . Eyes 1. Motor 4. Verbal- 1. The patient is noted to have spontaneous nonpurposeful motor activity of his right upper extremity. Skin Exam: No rash noted. Intact skin that is warm and dry. Data Data Last Documented VS Vital Signs Date Time Temp Pulse Resp B/P (MAP) Pulse Ox O2 Delivery O2 Flow Rate FiO2 05/09/17 22:57 16 100 Ventilator 100 05/09/17 22:57 15.00 05/09/17 22:54 98.8 75 93/50 (64) Orders Orders Troponin I (05/09/17 22:58) Ckmb (Isoenzyme) Profile (05/09/17 22:58) Complete Blood Count With Diff (05/09/17 22:58) I-Stat Profile (05/09/17 22:58) I-Stat Creatinine (05/09/17 22:58) Calcium (05/09/17 22:58) Magnesium (Mg) (05/09/17 22:58) Prothrombin Time / Inr (Pt) (05/09/17 22:58) Act Partial Throm Time (Ptt) (05/09/17 22:58) B-Type Natriuretic Peptide (05/09/17 22:58) Chest, Single Ap (05/09/17 22:58) Electrocardiogram (05/09/17 22:58) Oxygen Administration (05/09/17 22:58) Iv Access Insert/Monitor (05/09/17 22:58) Oximetry (05/09/17 22:58) Sodium Chlor 0.9% 1000 Ml Inj (Ns 1000 M (05/09/17 22:58) Sodium Chloride 0.9% Flush (Ns Flush) (05/09/17 23:00) Aspirin Chew (Aspirin Chew) (05/09/17 22:58) Nitroglycerin Sl (Nitrostat Sl) (05/09/17 22:58) Nitroglycerin-D5w 50 Mg/250 Ml (Nitrogly (05/09/17 23:00) Heparin Inj (Heparin Inj) (05/09/17 22:58) Sodium Chlor 0.9% 1000 Ml Inj (Ns 1000 M (05/09/17 23:00) Etomidate Inj (Amidate Inj) (05/09/17 23:04) Succinylcholine Inj (Quelicin Inj) (05/09/17 23:05) Etomidate Inj (Amidate Inj) (05/09/17 23:15) Succinylcholine Inj (Quelicin Inj) (05/09/17 23:15) Propofol 1000 Mg/100 Ml Inj (Diprivan 10 (05/09/17 23:15) ^ Infusion (05/09/17 23:14) RASS (05/09/17 23:14) Neurological Rass Scale PIO.Q2H (05/09/17 23:14) Isidoro-Gastric Tube Insert/Mon (05/09/17 23:14) Urinary Catheter Insert/Apply (05/09/17 23:14) Cardiac Catheterization (05/09/17 ) Heparin-Ns/Pf Inj (Heparin-Ns/Pf Inj) (05/09/17 23:31) Admit Order (Ed Use Only) (05/09/17 23:57) Labs Laboratory Tests Test 05/09/17 22:55 White Blood Count 11.3 TH/MM3 Red Blood Count 3.95 MIL/MM3 Hemoglobin 12.4 GM/DL Bedside Hemoglobin 12.2 G/DL Hematocrit 35.8 % Bedside Hematocrit 36.0 % Mean Corpuscular Volume 90.6 FL Mean Corpuscular Hemoglobin 31.5 PG Mean Corpuscular Hemoglobin Concent 34.8 % Red Cell Distribution Width 13.3 % Platelet Count 226 TH/MM3 Mean Platelet Volume 7.3 FL Neutrophils (%) (Auto) 40.2 % Lymphocytes (%) (Auto) 51.6 % Monocytes (%) (Auto) 5.7 % Eosinophils (%) (Auto) 1.8 % Basophils (%) (Auto) 0.7 % Neutrophils # (Auto) 4.5 TH/MM3 Lymphocytes # (Auto) 5.8 TH/MM3 Monocytes # (Auto) 0.6 TH/MM3 Eosinophils # (Auto) 0.2 TH/MM3 Basophils # (Auto) 0.1 TH/MM3 CBC Comment AUTO DIFF Differential Total Cells Counted 100 Neutrophils % (Manual) 41 % Lymphocytes % 47 % Monocytes % 8 % Eosinophils % 3 % Basophils % 1 % Neutrophils # (Manual) 4.6 TH/MM3 Differential Comment FINAL DIFF MANUAL Atypical Lymphocytes % Platelet Estimate NORMAL Platelet Morphology Comment NORMAL Prothrombin Time 12.7 SEC Prothromb Time International Ratio 1.1 RATIO Activated Partial Thromboplast Time 26.8 SEC Bedside Sodium 137 MMOL/L Bedside Potassium 3.9 MMOL/L Bedside Chloride 100 MMOL/L Bedside Blood Urea Nitrogen 17 MG/DL Bedside Creatinine 1.6 MG/DL Bedside Glucose 167 MG/DL Calcium Level 8.1 MG/DL Magnesium Level 2.0 MG/DL Total Creatine Kinase 83 U/L Troponin I 0.07 NG/ML B-Type Natriuretic Peptide 679 PG/ML MDM Medical Decision Making Medical Screen Exam Complete: Yes Emergency Medical Condition: Yes Medical Record Reviewed: Yes Differential Diagnosis Acute coronary syndrome with V. fib arrest, versus STEMI, versus electrolyte derangements, versus respiratory failure with cardiac arrest Narrative Course During the course of the patients emergency department visit, IV access was obtained. The patient was placed on a patient monitor with oximetry and frequent blood pressure monitoring. The patient's ECG done prior to arrival was reviewed. A STEMI alert was called based on this. A STEMI alert was called at 10:56 PM, I spoke to Dr. Rose, the shipyard painter apprentice on-call for Dr. Chatterjee, the patient's shipyard painter apprentice, at 11 PM. An i-STAT with creatinine was ordered. He agreed to come in to evaluate the patient. The cardiac catheterization team was called in. The patient's ECG done on arrival at this facility reveals a sinus rhythm with a heart rate of 74 with intraventricular conduction delay, QRS duration is 134 ms, ST segment elevation is noted in lead [address] segment depression in lead 1 , aVL, anteroseptal elevation is also noted in V1, V2 and, T waves are inverted in V6. The patient was initially provided normal saline 1 L IV fluid bolus as the patient's initial blood pressure was 93/50. The patient was prepped for rapid sequence intubation by me. The patient was given heparin per STEMI protocol. The patients laboratory studies were reviewed and remarkable for an i-STAT with creatinine that reveals a sodium of 137, potassium 3.9, chloride 100, BUN 17, glucose 167, hemoglobin 12.2, creatinine 1.6. Troponin I 0.07, BNP 679, PT 12.7 , PTT 26.8. Radiology studies were reviewed and remarkable for a chest x-ray that shows cardiomegaly, prominence of the central interstitial markings related to pulmonary venous hypertension versus mild edema, endotracheal tube and OG are well-placed, pleural calcifications are noted. The patient's case was discussed with the casting room helper on-call, Dr. Clifford who did agree to admit the patient for further evaluation and treatment at this time. The patient was admitted to the hospital in guarded condition and sent to a bed under the care of the casting room helper service. Critical Care Narrative Aggregate critical care time was 33 minutes. Time to perform other separately billable procedures was not included in the critical care time. My time did not include minutes spent treating any other patients simultaneously or on activities that did not directly contribute to the patient's treatment. The services I provided to this patient were to treat and/or prevent clinically significant deterioration that could result in: Hypoxic brain injury, versus fluid overload, versus cardiac dysrhythmia I provided critical care services requiring my management, as noted below: Chart data review, documentation time, medication orders and management, vital sign assessments/reviewing monitor data, ordering and reviewing lab tests, ordering and interpreting/reviewing x-rays and diagnostic studies, care of the patient and discussion of the patient with the admitting physicians. Procedures Procedure Narrative The patient was put in optimal position for the procedure. Rapid sequence intubation was initiated by me using 20 milligrams of etomidate IV and 100 milligrams of succinylcholine IV. The patient was intubated with a 8 cuffed endotracheal tube. Tube placement was confirmed by visualization of the tube and balloon passing through the cords, capnometry and subsequent chest x-ray. Breath sounds were equal and well aerated bilaterally postintubation. No breath sounds over stomach. Patient tolerated procedure well. Physician Communication Physician Communication The patient's case including history, pertinent physical examination findings, and laboratory studies were discussed with Dr. Rose. He did come in to evaluate the patient. The patient's case was also discussed with the casting room helper on-call, Dr. Clifford who did agree to that the patient for further evaluation and treatment at this time. Diagnosis Primary Impression: Cardiopulmonary arrest with successful resuscitation Admitting Information Admitting Physician Requests: Admit Rose Mills MD May 09, 2017 23:17
[2017-05-09 23:26] LABS: APTT (PATIENT) 26.8 SEC (24.3-30.1); INTERNATIONAL NORMALIZED RATIO 1.1 RATIO; PROTHROMBIN TIME - PATIENT 12.7 SEC (9.8-11.6)
[2017-05-09] MEDS ORDERED: HEPARIN-NS/PF INJ 1,500 ML ONE (23:31)
--- NOTE | 2017-05-09 23:42 | RADRPT ---
EXAM DATE/TIME: 05/09/2017 23:20 [facility] COMPARISON: CTA TRANS AORTIC VALVE REPLACEMENT, April 02, 2017, 14:17. CHEST SINGLE AP, April 01, 2017, 9:58 . INDICATIONS : Post intubation, stemi alert. MEDICAL HISTORY : None. SURGICAL HISTORY : None. ENCOUNTER: Initial ACUITY: 1 day PAIN SCORE: 0/10 LOCATION: Bilateral chest FINDINGS: The patient is status post sternotomy. The patient is intubated with the tip of the ET tube is 2.7 cm from the gabbi. An NG tube is directed into the stomach. The heart size is enlarged. There is mild prominence of the interstitial markings centrally in the perihilar regions. There is a calcified gra nuloma in the right upper lung and at the right lower lobe. There are scattered bilateral areas of pl eural calcifications. CONCLUSION: 1. Cardiomegaly 2. Prominence of the central interstitial markings related to pulmonary venous hypertension versus mi ld edema. 3. ET tube and NG tube are well placed. 4. Pleural calcifications. Jez Sheehan MD on May 09, 2017 at 23:37 Board Certified Radiologist. This report was verified electronically.
--- NOTE | 2017-05-09 23:58 | HHI.HP ---
HPI Service Critical Care Medicine Primary Care Physician Non-Staff Admission Diagnosis Diagnosis: Travel History International Travel<30 Days: No Contact w/Intl Traveler <30 Da: No Traveled to Known Affected Are: No History of Present Illness 76 year old male presents after collapsing in front of his prior to arrival. She reportedly started CPR on the patient and ambulance services were called. Ambulance services arrived approximately 3 minutes after the call as they were nearby. They found the patient unresponsive with agonal respiratory effort. The patient's initial rhythm was ventricular fibrillation. The patient was defibrillated and intraosseous access was placed in the right fuller. The patient was given epinephrine 1 mg IV, 1 amp of bicarbonate, initial blood pressure was then 130/90. The patient on arrival is noted to be moving his extremities however non-purposely. The patient has no gag reflex and an oropharyngeal airway in place. He was evaluated by electronic field service engineer special education professional as he has known severe coronary artery disease, status post CABG in 1995, now with the occlusive lesions in the graft vessels. Patient is not a candidate for emergent cardiac catheterization and due to poor neurological exam he is considered a candidate for therapeutic hypothermia. Review of Systems ROS Unobtainable patient is sedated and intubated Past Family Social History Allergies: Coded Allergies: Sulfa (Sulfonamide Antibiotics) (Verified Allergy, Severe, Hives, 04/01/17 ) hydrocodone (Verified Adverse Reaction, Severe, Hallucinations, 04/01/17) metoprolol (Verified Adverse Reaction, Severe, Joint Pain, 04/01/17) niacin (Verified Adverse Reaction, Severe, Chest Pain, 04/01/17) potassium chloride (Verified Adverse Reaction, Severe, Chest Pain, ) Xojjhex-Awq-Yvh Reductase Inhibitor (Verified Adverse Reaction, Intermediate, Dehydration, 04/01/17) amlodipine (Verified Adverse Reaction, Intermediate, Joint Pain, 04/01/17) cholecalciferol (vitamin D3) (Verified Adverse Reaction, Unknown, 04/01/17 ) Uncoded Allergies: MULTIVITAMIN (Adverse Reaction, Intermediate, Migraine, 04/01/17) Past Medical History Hypertension Coronary artery disease status post CABG in 2008 Diabetes Past Surgical History CABG Reported Medications Reported Meds & Active Scripts Active Potassium Chloride ER (Potassium Chloride) 20 Meq Tab 20 Meq PO DAILY Lasix (Furosemide) 20 Mg Tab 20 Mg PO BID Isosorbide Mononitrate ER (Isosorbide Mononitrate) 30 Mg Aubree 30 Mg PO DAILY@ 07 30 Days Ranexa ER 12 HR (Ranolazine) 500 Mg Tab 500 Mg PO Q12HR 30 Days Reported Clonazepam 0.5 Mg Tab 0.5 Mg PO BID Nitroglycerin SL (Nitroglycerin) 0.4 Mg Subl 0.4 Mg SL DIRECTED PRN ONE TABLET UNDER THE TONGUE NEEDED FOR CHEST PAIN, MAY REPEAT EVERY FIVE MINUTES FOR A TOTAL OF 3 DOSES OR CALL 911 IF NO RELIEF Mapap (Acetaminophen) 500 Mg Tab 500 Mg PO Q4-6H PRN Sennosides 8.6 Mg Tab 8.6 Mg PO BID Enalapril (Enalapril Maleate) 20 Mg Tab 20 Mg PO DAILY Aspirin 81 Mg Chew 81 Mg CHEW DAILY Verapamil (Verapamil HCl) 80 Mg Tab 80 Mg PO BID Metformin (Metformin HCl) 1,000 Mg Tab 1,000 Mg PO HS Plavix (Clopidogrel Bisulfate) 75 Mg Tab 75 Mg PO HS Active Ordered Medications Current Medications Medications (Trade) Dose Ordered Sig/Chika Route PRN Reason Start Time Stop Time Status Last Admin Dose Admin Nitroglycerin/ Dextrose 250 ml @ 3 mls/hr TITRATE PRN IV for angina or ST elevation 05/09/17 23:00 Propofol 100 ml @ 0 mls/hr TITRATE PRN IV Ordered RASS 05/09/17 23:15 05/09/17 23:26 Aspirin (Aspirin Chew) 81 mg DAILY CHEW 05/10/17 09:00 Clonazepam (KlonoPIN) 0.5 mg BID PO 05/10/17 09:00 Clopidogrel Bisulfate (Plavix) 75 mg HS PO 05/10/17 21:00 Enalapril Maleate (Vasotec) 20 mg DAILY PO 05/10/17 09:00 Furosemide (Lasix) 20 mg BID PO 05/10/17 09:00 Isosorbide Mononitrate (Imdur) 30 mg DAILY@07 PO 05/10/17 07:00 Ranolazine (Ranexa) 500 mg Q12HR PO 05/10/17 09:00 Verapamil HCl (Isoptin) 80 mg BID PO 05/10/17 09:00 Amiodarone HCl 450 mg/Dextrose 250 ml @ 33.33 mls/ hr Q7H31M PRN IV Per Protocol 05/10/17 00:47 Heparin Sodium (Porcine) (Heparin Inj) 5,000 units UNSCH PRN IV PUSH APTT LESS THAN 25 05/10/17 06:45 Heparin Sodium (Porcine) (Heparin Inj) 2,500 units UNSCH PRN IV PUSH APTT 25 TO 39 05/10/17 06:45 Heparin Sodium/ Dextrose 250 ml @ 9 mls/hr TITRATE PRN IV Coagulation Management 05/10/17 00:45 Sodium Chloride (NS Flush) 2 ml UNSCH PRN IV FLUSH FLUSH AFTER USING IV ACCESS 05/10/17 00:45 Sodium Chloride (NS Flush) 2 ml BID IV FLUSH 05/10/17 09:00 Acetaminophen (Tylenol) 650 mg Q6H PRN PO PAIN 1-5 AND/OR FEVER >101F 05/10/17 00:45 Morphine Sulfate (Morphine Inj) 2 mg Q2H PRN IV PUSH PAIN SCALE 6 TO 10 05/10/17 00:45 Famotidine (Pepcid Inj) 20 mg Q12HR IV PUSH 05/10/17 09:00 Midazolam HCl (Versed Inj) 2 mg Q1H PRN IV PUSH SEDATION 05/10/17 00:45 Artificial Tears (Tears Naturale Opth Soln) 1 drop TID EACH EYE 05/10/17 09:00 Ondansetron HCl (Zofran Inj) 4 mg Q6H PRN IV PUSH NAUSEA OR VOMITING 05/10/17 00:45 Albuterol/ Ipratropium (Duoneb Neb) 1 ampule Q2HR NEB PRN INH WHEEZING 05/10/17 00:45 Miscellaneous Information 1 Q361D XX 05/10/17 00:45 Chlorhexidine Gluconate (Chlorhexidine 2% Cloth) 3 pack Taper DAILY@04 TOP 05/10/17 04:00 05/06/18 03:59 Chlorhexidine Gluconate (Chlorhexidine 2% Cloth) 3 pack UNSCH PRN TOP HYGIENIC CARE 05/10/17 00:45 Senna/Docusate Sodium (Aminata-Colace) 1 tab BID PO 05/10/17 09:00 Magnesium Hydroxide (Milk Of Magnesia Liq) 30 ml Q12H PRN PO Mild constipation 05/10/17 00:45 Sennosides (Senokot) 17.2 mg Q12H PRN PO Moderate constipation 05/10/17 00:45 Bisacodyl (Dulcolax Supp) 10 mg DAILY PRN RECTAL SEVERE CONSITIPATION/ IF NPO 05/10/17 00:45 Lactulose (Lactulose Liq) 30 ml DAILY PRN PO SEVERE CONSITIPATION/ IF PO 05/10/17 00:45 Dextrose (D50w (Vial) Inj) 50 ml UNSCH PRN IV PUSH HYPOGLYCEMIA-SEE COMMENTS 05/10/17 00:45 Glucagon (Glucagon Inj) 1 mg UNSCH PRN OTHER HYPOGLYCEMIA-SEE COMMENTS 05/10/17 00:45 Insulin Aspart (NovoLOG SUPPLEMENTAL SCALE) 1 ACHS SLIDING SCALE SQ 05/10/17 08:00 Family History Father had a stroke Mother heart disease Social History No history of tobacco, alcohol, or illicit drug abuse Physical Exam Vital Signs Vital Signs Date Time Temp Pulse Resp B/P (MAP) Pulse Ox O2 Delivery O2 Flow Rate FiO2 05/09/17 22:54 98.8 75 16 93/50 (64) 99 Physical Exam GENERAL: Elderly appearing man sedated and intubated SKIN: Warm and dry. HEAD: Normocephalic. EYES: No scleral icterus. No injection or drainage. NECK: Supple, trachea midline. No JVD or lymphadenopathy. CARDIOVASCULAR: Regular rate and rhythm without murmurs, gallops, or rubs. RESPIRATORY: Breath sounds equal bilaterally. No accessory muscle use. GASTROINTESTINAL: Abdomen soft, non-tender, nondistended. MUSCULOSKELETAL: No cyanosis, or edema. BACK: Nontender without obvious deformity. NEURO EXAM: GCS: M2 Vt E4 Mental Status: The patient is sedated and intubated Cranial Nerves: Pupils are round, reactive to light. Reflexes: Biceps, patellar, and Achilles are 2/4 bilaterally. No clonus. Laboratory Laboratory Tests Test 05/09/17 22:55 White Blood Count 11.3 Red Blood Count 3.95 Hemoglobin 12.4 Bedside Hemoglobin 12.2 Hematocrit 35.8 Bedside Hematocrit 36.0 Mean Corpuscular Volume 90.6 Mean Corpuscular Hemoglobin 31.5 Mean Corpuscular Hemoglobin Concent 34.8 Red Cell Distribution Width 13.3 Platelet Count 226 Mean Platelet Volume 7.3 Neutrophils (%) (Auto) 40.2 Lymphocytes (%) (Auto) 51.6 Monocytes (%) (Auto) 5.7 Eosinophils (%) (Auto) 1.8 Basophils (%) (Auto) 0.7 Neutrophils # (Auto) 4.5 Lymphocytes # (Auto) 5.8 Monocytes # (Auto) 0.6 Eosinophils # (Auto) 0.2 Basophils # (Auto) 0.1 CBC Comment AUTO DIFF Prothrombin Time 12.7 Prothromb Time International Ratio 1.1 Activated Partial Thromboplast Time 26.8 Bedside Sodium 137 Bedside Potassium 3.9 Bedside Chloride 100 Bedside Blood Urea Nitrogen 17 Bedside Creatinine 1.6 Bedside Glucose 167 Calcium Level 8.1 Magnesium Level 2.0 Total Creatine Kinase 83 Troponin I 0.07 B-Type Natriuretic Peptide 679 Result Diagram: 05/09/17 2253 Caprini VTE Risk Assessment Caprini VTE Risk Assessment: Mod/High Risk (score >= 2) Caprini Risk Assessment Model Point Value = 1 Point Value = 2 Point Value = 3 Point Value = 5 Age 41-60 Minor surgery BMI > 25 kg/m2 Swollen legs Varicose veins or History of unexplained or recurrent spontaneous Oral contraceptives or hormone replacement Sepsis (< 1 month) Serious lung disease, including pneumonia (< 1 month) Abnormal pulmonary function Acute myocardial infarction Congestive heart failure (< 1 month) History of inflammatory bowel disease Medical patient at bed rest Age 61-74 Arthroscopic surgery Major open surgery (> 45 min) Laparoscopic surgery (> 45 min) Malignancy Confined to bed (> 72 hours) Immobilizing plaster cast Central venous access Age >= 75 History of VTE Family history of VTE Factor V Leiden Prothrombin 44872D Lupus anticoagulant Anticardiolipin antibodies Elevated serum homocysteine Heparin-induced thrombocytopenia Other congenital or acquired thrombophilia Stroke (< 1 month) Elective arthroplasty Hip, pelvis, or leg fracture Acute spinal cord injury (< 1 month) Prophylaxis Regimen Total Risk Factor Score Risk Level Prophylaxis Regimen 0-1 Low Early ambulation 2 Moderate Order ONE of the following: *Sequential Compression Device (SCD) *Heparin 5000 units SQ BID 3-4 Higher Order ONE of the following medications: *Heparin 5000 units SQ TID *Enoxaparin/Lovenox 40 mg SQ daily (WT < 150 kg, CrCl > 30 mL/min) *Enoxaparin/Lovenox 30 mg SQ daily (WT < 150 kg, CrCl > 10-29 mL/min) *Enoxaparin/Lovenox 30 mg SQ BID (WT < 150 kg, CrCl > 30 mL/min) AND/OR *Sequential Compression Device (SCD) 5 or more Highest Order ONE of the following medications: *Heparin 5000 units SQ TID (Preferred with Epidurals) *Enoxaparin/Lovenox 40 mg SQ daily (WT < 150 kg, CrCl > 30 mL/min) *Enoxaparin/Lovenox 30 mg SQ daily (WT < 150 kg, CrCl > 10-29 mL/min) *Enoxaparin/Lovenox 30 mg SQ BID (WT < 150 kg, CrCl > 30 mL/min) AND *Sequential Compression Device (SCD) Assessment and Plan Assessment and Plan Respiratory failure - Intubated for an airway protection - No weaning until neurologically improved - Vent bundle - DuoNeb's when necessary - Assist-volume control mode - ABG and CXR daily while intubated Cardiac arrest - Status post V. fib arrest - Severe coronary artery disease, not a candidate for cardiac catheterization due to known lesions and no possible intervention - Heparin drip - Amiodarone drip - T hypothermia - 2-D echo - Further management per cardiology Diabetes - Hold metformin - Insulin sliding scale Severe aortic valve stenosis - Patient was supposed to undergo TAVR procedure - Conservative management until hemodynamically and neurologically improved DVT GI prophylaxis - Teds SCDs - Heparin drip - Pepcid Critical Care: The total critical care time was 35 minutes. Time to perform other separately billable procedures was not included in the critical care time. Antwan Clifford MD May 09, 2017 11:58 pm
[2017-05-10] VITALS (48 sets, daily range): BP systolic 66–191; BP diastolic 44–96; PULSE 36–111; RESP 9–22; TEMP 90.1–100; O2SAT 92–100
[2017-05-10 00:02] LABS: BASOPHILS 1 % (0-2); EOSINOPHILS 3 % (0-4); NEUTROPHIL # MANUAL DIFF 4.6 TH/MM3 (1.8-7.7); POLYS (SEG NEUTROPHILS) 41 % (16-70); WBC DIFF SAMPLE 100
[2017-05-10 00:09] LABS: PLATELET ESTIMATE SMEAR NORMAL (NORMAL); PLATELET MORPHOLOGY NORMAL (NORMAL); SCAN/DIFF FINAL DIFF MANUAL
[2017-05-10] MEDS ORDERED: AMIODARONE INJ 150 MG in DEXTROSE 5% IN WATER 100ML INJ 100 ML IV ONE ×2 (00:37)
[2017-05-10] MEDS ORDERED: SODIUM CHLOR 0.9% 1000 ML INJ 1,000 ML IV SCH (00:39)
[2017-05-10 00:45] LABS: BLOOD GAS BASE EXCESS -6.9 mmol/L (-2-2); BLOOD GAS CARBOXYHEMOGLOBIN 0.9 % (0-4); BLOOD GAS HCO3 18 mmol/L (22-26); BLOOD GAS METHEMOGLOBIN 0.6 % (0-2); BLOOD GAS O2 HGB SATURATION 99 % (90-100); BLOOD GAS OXYGEN CONTENT 17.5 Vol % (12.0-20.0); BLOOD GAS PCO2 33 mmHg (38-42); BLOOD GAS PO2 325 mmHG (61-120); BLOOD GAS TOTAL HGB 12.1 G/DL (12.0-16.0); CRITICAL VALUE NO; DRAW SITE RT RADIAL; FIO2 100 %; NUMBER OF ARTERIAL PUNCTURES 1; OXYGEN DEVICE VENTILATOR; STAT NO; ULNAR PULSE PRESENT; VENT SETTINGS PRVC/AC
[2017-05-10] MEDS ORDERED: ONDANSETRON HCL 4 MG/2 ML VIAL IV PUSH PRN (00:45)
[2017-05-10] MEDS ORDERED: HEPARIN-D5W 25,000 U/250 ML 250 ML IV PRN (00:45)
[2017-05-10] MEDS ORDERED: GLUCAGON 1 MG/ML VIAL OTHER PRN (00:45)
[2017-05-10] MEDS ORDERED: MISCELLANEOUS NURSING INFORMATION XX SCH (00:45)
[2017-05-10] MEDS ORDERED: SODIUM CHLORIDE 0.9% FLUSH 10 ML FLUSH IV FLUSH PRN (00:45)
[2017-05-10] MEDS ORDERED: ACETAMINOPHEN 325 MG TAB PO PRN (00:45)
[2017-05-10] MEDS ORDERED: SENNOSIDES 8.6 MG TAB PO PRN (00:45)
[2017-05-10] MEDS ORDERED: LACTULOSE SYRUP 20 GM/30 ML CUP PO PRN (00:45)
[2017-05-10] MEDS ORDERED: RESP: ALBUTEROL 2.5 MG/IPRATROPIUM 0.5 MG NEB (PRN) INH (00:45)
[2017-05-10] MEDS ORDERED: MAGNESIUM HYDROXIDE SUSP 30 ML CUP PO PRN (00:45)
[2017-05-10] MEDS ORDERED: BISACODYL 10 MG SUPP RECTAL PRN (00:45)
[2017-05-10] MEDS ORDERED: DEXTROSE 50% IN WATER 50 ML VIAL(D50) IV PUSH PRN (00:45)
[2017-05-10] MEDS ORDERED: CHLORHEXIDINE GLUCONATE 2 % 1 PACK (2 CLOTHS) TOP PRN (00:45)
[2017-05-10] MEDS ORDERED: AMIODARONE INJ 450 MG in DEXTROSE 5% IN WATE(EXCEL) INJ 241 ML IV PRN ×2 (00:47)
[2017-05-10] MEDS ORDERED: FUROSEMIDE 40 MG/4 ML VIAL IV PUSH ONE (01:15)
--- NOTE | 2017-05-10 02:27 | RADRPT ---
EXAM DATE/TIME: 05/10/2017 02:05 [facility] COMPARISON: No previous studies available for comparison. INDICATIONS : Post code. Unresponsive / on ventilator. RADIATION DOSE: 37.61 CTDIvol (mGy) MEDICAL HISTORY : Cardiovascular disease. Hypertension. Diabetes mellitus type 2. SURGICAL HISTORY : CABG ENCOUNTER: Initial ACUITY: 1 day PAIN SCALE: Non-responsive LOCATION: cranial TECHNIQUE: Multiple contiguous axial images were obtained of the head. Using automated exposure control and adj ustment of the mA and/or kV according to patient size, radiation dose was kept as low as reasonably a chievable to obtain optimal diagnostic quality images. DICOM format image data is available electro nically for review and comparison. FINDINGS: There is motion artifact seen. CEREBRUM: The ventricles and cortical sulci are mildly widened. There is a small focal areas of increased dens ity seen in the right frontal lobe measuring up 0.5 cm which may be a small area of hemorrhage. No ev idence of midline shift, mass lesion, or acute infarction. No extra-axial fluid collections are seen . POSTERIOR FOSSA: The cerebellum and brainstem are intact. The 4th ventricle is midline. The cerebellopontine angle i s unremarkable. EXTRACRANIAL: The visualized portion of the orbits is intact. SKULL: The calvaria is intact. No evidence of skull fracture. CONCLUSION: 1. Possible small 5 mm hematoma in the right frontal lobe without mass effect. 2. Age-related atrophy. Jez Sheehan MD on May 10, 2017 at 2:22 Board Certified Radiologist. This report was verified electronically.
[2017-05-10] MEDS: PROPOFOL 1000 MG/100 ML INJ 100 ML IV PRN ×3 (03:47→14:09)
[2017-05-10] MEDS: CHLORHEXIDINE GLUCONATE 2 % 1 PACK (2 CLOTHS) TOP SCH (04:00)
[2017-05-10] MEDS ORDERED: HEPARIN SODIUM - IV 10,000 UNITS/10 ML VIAL IV PUSH PRN ×2 (06:45)
[2017-05-10] MEDS: ISOSORBIDE MONONITRATE 30 MG TAB PO SCH (06:54)
--- NOTE | 2017-05-10 07:07 | MB ---
cc: JIMMY PAYAN DO DATE OF CONSULTATION 05/09/2017 REASON FOR CONSULTATION V-fib arrest HISTORY OF PRESENT ILLNESS Jez Mtz is a 76-year-old male who presented by EMS to [facility] emergency room on May 09, 2017 after a cardiac arrest. The patient was in his chair and took his night meds. His started noticing him having agonal breathing and his eyes rolled back in his head. At that time, she could not wake him up and so she moved him out of the chair onto the floor and started CPR. She called 9-1-1. Ambulance services arrived approximately three minutes after the call and the patient was found unresponsive with agonal respiratory effort. Initial rhythm was ventricular fibrillation and so the patient was defibrillated. On arrival, the patient was noted to have a blood pressure of 93/50 and a GCS of 6. He was noted to have spontaneous respiratory effort. He had no gag reflex and there was an oropharyngeal airway in place. He has since been intubated. An EKG was done and there was concern for some minimal ST elevation in the inferior leads. I was called emergently and on my arrival in comparison to previous EKG from April 01, 2017 shows no significant difference. PAST MEDICAL HISTORY 1. Hypertension 2. Coronary artery disease 3. Diabetes mellitus 4. Severe aortic stenosis PAST SURGICAL HISTORY 1. Coronary artery bypass grafting x4 ([address] Turk) with 3/4 grafts occluded. 2. Multiple coronary artery stenting. 3. Cardiac catheterization (April 01, 2017) ejection fraction of 15-20%. Left main pain with 10% lesion. LAD 100% occluded. Left circumflex has a proximal 70% lesion, distal 30% lesion in its obtuse marginal. Ramus vessel is a very small caliber vessel with a 70% lesion proximally. RCA is 100% occluded. BURKS to LAD is patent and retrogradely fills into the mid LAD which has an 80% lesion. SVG to circumflex is occluded. SVG to diagonal occluded. SVG to RCA occluded. ALLERGIES 1. Statins 2. Sulfa 3. Norvasc 4. Hydrocodone 5. Metoprolol 6. Niacin 7. Potassium MEDICATIONS 1. Plavix 75 mg daily 2. Ranexa 500 mg q. 12 3. Imdur 30 mg daily 4. Nitro sublingual as needed 5. Verapamil 80 mg b.i.d. 6. Enalapril 20 mg daily 7. Aspirin 81 mg daily 8. Clonazepam 0.5 mg b.i.d. 9. Potassium 20 mEq daily 10. Lasix 20 mg b.i.d. 11. Sennosides 8.6 mg b.i.d. 12. Metformin 1000 mg daily FAMILY HISTORY Mother at 82 from heart disease. Father from emphysema. SOCIAL HISTORY The patient is and has three children. He smoked for 20 years and quit 1982. He rarely drinks alcohol. 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 PHYSICAL EXAMINATION VITAL SIGNS: Temperature 98.8, heart rate 75, blood pressure 117/60, respirations 16, pulse ox 99% on the ventilator. GENERAL: The patient has been sedated for intubation. HEAD, EYES, EARS, NOSE, AND THROAT: Pupils are a equal and round. Mucous membranes are moist. ET tube in place. NECK: Supple. No JVD at 45 degrees. No carotid bruits heard bilaterally. Carotid upstroke is brisk in nature. HEART: Regular rate and rhythm. Positive first and second heart sounds with a 3/6 crescendo-decrescendo murmur to the right sternal border. LUNGS: Decreased breath sounds at the bilateral bases, but no overt wheezes, rales or rhonchi. ABDOMEN: Soft, nontender, nondistended. No organomegaly noted. EXTREMITIES: Show no clubbing, cyanosis or edema. NEUROLOGIC: On arrival, the patient was a GCS of 6. Skin is warm, dry and intact. Femoral and distal pulses intact bilaterally. LABORATORY FINDINGS Hemoglobin 12.4, hematocrit 35.8, platelets 226. Potassium 3.9, BUN 17, creatinine 1.6, troponin 0.07, BNP 679. Electrocardiogram (May 09, 2017 at 2257) sinus rhythm, intraventricular conduction delay, inferior myocardial infarction of indeterminate age, anterior septal myocardial infarction of indeterminate age, in comparison to April 01, 2017, no significant change. IMPRESSIONS 1. V-fib arrest requiring CPR and one defibrillation 2. GCS of 6 on arrival 3. Severe aortic stenosis by echocardiogram (April 03, 2017) 4. Ejection fraction of 10-15% by cardiac catheterization. 5. Severe coronary artery disease with a history of CABG x4 (3/4 grafts occluded) 6. Acute kidney injury 7. Diabetes mellitus RECOMMENDATIONS 1. Mr. Mtz presented as a V-fib rest requiring one defibrillation. EKG was done showing no significant change from April 01, 2017. 2. On presentation, his GCS was 6 and so I have discussed with the critical care team and they will consider hypothermia protocol. 3. As far as his V-fib cardiac arrest, the patient has multiple possible causes including his coronary artery disease, aortic stenosis or his severe cardiomyopathy. His EKG shows no significant change and he is not a STEMI. I reviewed his coronary films as well as previous stress test showing anterior ischemia and at this time, we will plan on continuing supportive care for him and not going to the cleaning laborer emergently as he has a complex coronary anatomy which is not amendable to PCI at this time, especially with his current neurologic status. 4. We will place him on a heparin drip. 5. The case discussed with ER physician and critical care team. 6. Greater than 45 minutes critical care time spent with the patient discussing with the ER, critical care and with the family. Thank you for allowing me to see Jez Mtz. If there are any questions, please do not hesitate to call. Jimmy Payan DO VGP/DJL /12:05 AM /6:50 AM MTDJuan
[2017-05-10] MEDS: INSULIN ASPART SUPPLEMENTAL SCALE SQ SCH ×4 (08:00→20:51)
--- NOTE | 2017-05-10 08:30 | EKG ---
Date Performed: 05/09/2017 Time Performed: 22:57:40 PTAGE: 76 years EKG: Sinus rhythm NONSPECIFIC INTRAVENTRICULAR CONDUCTION DELAY INFERIOR MYOCARDIAL INFARCTION, POSSIBLY ACUTE ANTEROS EPTAL MYOCARDIAL INFARCTION LATERAL ST/T CHANGES, CONSIDER ISCHEMIA ABNORMAL ECG NO PREVIOUS TRACING DOCTOR: Toño Pugh Interpretating Date/Time 05/10/2017 08:29:46
[2017-05-10] MEDS ORDERED: CISATRACURIUM BESYLATE 20 MG/10 ML VIAL IV PUSH ONE (08:45)
[2017-05-10] MEDS: DOCUSATE SODIUM 50 MG/SENNA 8.6 MG TAB PO SCH ×2 (09:00→19:50)
[2017-05-10] MEDS ORDERED: FAMOTIDINE 20 MG/2 ML VIAL IV PUSH SCH ×2 (09:00→21:00)
[2017-05-10] MEDS ORDERED: ASPIRIN 81 MG CHEW TAB CHEW SCH (09:00)
[2017-05-10] MEDS ORDERED: ENALAPRIL MALEATE 10 MG TAB PO SCH (09:00)
[2017-05-10] MEDS: RANOLAZINE 500 MG EXTENDED RELEASE TAB PO SCH ×2 (09:00→19:50)
[2017-05-10] MEDS ORDERED: CISATRACURIUM INJ 100 MG in SODIUM CHLOR 0.9% 250 ML INJ 250 ML IV PRN (09:15)
[2017-05-10] MEDS: FUROSEMIDE 20 MG TAB PO SCH ×2 (09:25→19:49)
[2017-05-10] MEDS: MORPHINE SULFATE 4 MG/ML INJ IV PUSH PRN ×2 (09:25→16:47)
[2017-05-10] MEDS: clonazePAM 0.5 MG TAB PO SCH ×2 (09:34→19:49)
[2017-05-10] MEDS: CHLORHEXIDINE 0.12% (ORAL KIT) 15 ML CUP MT SCH ×2 (09:35→19:50)
[2017-05-10] MEDS: SODIUM CHLORIDE 0.9% FLUSH 10 ML FLUSH IV FLUSH SCH ×2 (09:35→19:50)
[2017-05-10] MEDS: VERAPAMIL HCL 80 MG TAB PO SCH ×2 (10:48→19:49)
[2017-05-10] MEDS: ARTIFICIAL TEARS OPTH SOLN 15 ML BTL EACH EYE SCH ×3 (10:48→17:22)
[2017-05-10 11:10] LABS: AUTOMATED NEUTROPHIL # 8.3 TH/MM3 (1.8-7.7); BASOPHIL # 0.1 TH/MM3 (0-0.2); BASOPHIL % 0.6 % (0.0-2.0); EOSINOPHIL % 0.1 % (0.0-4.0); HEMATOCRIT 38.4 % (39.0-51.0); HEMO FLAGS DIFF FINAL; LYMPH % 17.9 % (9.0-44.0); MEAN CORPUSCULAR HEMOGLOBIN 30.8 PG (27.0-34.0); MEAN CORPUSCULAR HGB CONC 33.5 % (32.0-36.0); MONO % 8.1 % (0.0-8.0); NEUT % 73.3 % (16.0-70.0); PLATELET COUNT 230 TH/MM3 (150-450); RED BLOOD COUNT 4.18 MIL/MM3 (4.50-5.90); RED CELL DISTRIBUTION WIDTH 13.6 % (11.6-17.2); WHITE BLOOD COUNT 11.4 TH/MM3 (4.0-11.0)
[2017-05-10] MEDS ORDERED: TERBUTALINE INJ 1 MG/ML AMP SQ PRN ×2 (14:15→14:30)
[2017-05-10] MEDS ORDERED: DOPamine INJ PREMIX 500 ML IV PRN (14:15)
[2017-05-10] MEDS: DOPamine 800 MG/D5W PREMIX 500 ML IV PRN ×2 (14:26→19:48)
--- NOTE | 2017-05-10 14:32 | PD.CARD.PN ---
Subjective Subjective Remarks no over the weekend events noted sedated intubated on cooling protocol Objective Medications Current Medications Medications (Trade) Dose Ordered Sig/Chika Route Start Time Stop Time Status Last Admin Nitroglycerin/ Dextrose 250 ml @ 3 mls/hr TITRATE PRN IV 05/09/17 23:00 (Aspirin Chew) 81 mg DAILY CHEW 05/10/17 09:00 (KlonoPIN) 0.5 mg BID PO 05/10/17 09:00 05/10/17 09:34 (Plavix) 75 mg HS PO 05/10/17 21:00 (Vasotec) 20 mg DAILY PO 05/10/17 09:00 05/10/17 09:34 (Lasix) 20 mg BID PO 05/10/17 09:00 05/10/17 09:25 (Imdur) 30 mg DAILY@07 PO 05/10/17 07:00 (Ranexa) 500 mg Q12HR PO 05/10/17 09:00 (Isoptin) 80 mg BID PO 05/10/17 09:00 05/10/17 10:48 Amiodarone HCl 450 mg/Dextrose 250 ml @ 33.33 mls/ hr Q7H31M PRN IV 05/10/17 00:47 05/10/17 02:08 (Heparin Inj) 5,000 units UNSCH PRN IV PUSH 05/10/17 06:45 (Heparin Inj) 2,500 units UNSCH PRN IV PUSH 05/10/17 06:45 Heparin Sodium/ Dextrose 250 ml @ 9 mls/hr TITRATE PRN IV 05/10/17 00:45 (NS Flush) 2 ml UNSCH PRN IV FLUSH 05/10/17 00:45 (NS Flush) 2 ml BID IV FLUSH 05/10/17 09:00 05/10/17 09:35 (Tylenol) 650 mg Q6H PRN PO 05/10/17 00:45 (Morphine Inj) 2 mg Q2H PRN IV PUSH 05/10/17 00:45 05/10/17 09:25 (Versed Inj) 2 mg Q1H PRN IV PUSH 05/10/17 00:45 (Tears Naturale Opth Soln) 1 drop TID EACH EYE 05/10/17 09:00 05/10/17 12:15 (Zofran Inj) 4 mg Q6H PRN IV PUSH 05/10/17 00:45 (Duoneb Neb) 1 ampule Q2HR NEB PRN INH 05/10/17 00:45 Miscellaneous Information 1 Q361D XX 05/10/17 00:45 (Chlorhexidine 2% Cloth) 3 pack Taper DAILY@04 TOP 05/10/17 04:00 05/06/18 03:59 05/10/17 04:00 (Chlorhexidine 2% Cloth) 3 pack UNSCH PRN TOP 05/10/17 00:45 (Aminata-Colace) 1 tab BID PO 05/10/17 09:00 (Milk Of Magnesia Liq) 30 ml Q12H PRN PO 05/10/17 00:45 (Senokot) 17.2 mg Q12H PRN PO 05/10/17 00:45 (Dulcolax Supp) 10 mg DAILY PRN RECTAL 05/10/17 00:45 (Lactulose Liq) 30 ml DAILY PRN PO 05/10/17 00:45 (D50w (Vial) Inj) 50 ml UNSCH PRN IV PUSH 05/10/17 00:45 (Glucagon Inj) 1 mg UNSCH PRN OTHER 05/10/17 00:45 (NovoLOG SUPPLEMENTAL SCALE) 1 ACHS SLIDING SCALE SQ 05/10/17 08:00 05/10/17 12:00 (Peridex 0.12% Liq) 15 ml BID@08,20 MT 05/10/17 08:00 05/10/17 09:35 Propofol 100 ml @ 2.31 mls/hr TITRATE PRN IV 05/10/17 01:45 05/10/17 14:09 Cisatracurium Besylate 100 mg/ Sodium Chloride 260 ml @ 13.33 mls/ hr TITRATE PRN IV 05/10/17 09:15 05/10/17 09:09 (Pepcid Inj) 10 mg Q12HR IV PUSH 05/10/17 21:00 Dopamine HCl/ Dextrose 500 ml @ 9.619 mls/ hr TITRATE PRN IV 05/10/17 14:15 (Brethine Inj) 1 mg UNSCH PRN SQ 05/10/17 14:15 Vital Signs / I&O Vital Signs Date Time Temp Pulse Resp B/P (MAP) Pulse Ox O2 Delivery O2 Flow Rate FiO2 05/10/17 13:09 100 50 05/10/17 12:00 41 05/10/17 11:00 46 05/10/17 11:00 90.1 46 16 137/76 (96) 100 149/74 (99) 05/10/17 10:23 100 50 05/10/17 10:00 90.1 50 13 164/88 (113) 100 176/86 (116) 05/10/17 10:00 50 05/10/17 09:30 91.4 52 16 191/96 (127) 100 05/10/17 09:00 91.4 48 16 115/68 (84) 100 137/72 (93) 05/10/17 09:00 48 05/10/17 08:30 48 16 129/72 (91) 100 05/10/17 08:10 50 134/82 05/10/17 08:00 96.6 52 18 99/64 (76) 100 124/78 (93) 05/10/17 08:00 52 05/10/17 07:45 55 05/10/17 07:45 55 122/67 05/10/17 07:30 100 50 05/10/17 07:30 60 05/10/17 07:15 65 05/10/17 07:00 99.3 62 20 105/67 (80) 99 05/10/17 07:00 66 05/10/17 07:00 62 05/10/17 06:00 66 05/10/17 04:26 100 50 05/10/17 04:00 70 05/10/17 03:31 100.0 72 22 103/71 (82) 100 05/10/17 02:20 100 100 05/10/17 02:08 86 107/72 05/10/17 02:00 99 100 05/10/17 02:00 89 16 107/74 (85) 97 100 05/10/17 01:12 101 148/88 05/10/17 01:00 111 16 104/88 (93) 92 100 05/10/17 00:45 100 50 05/10/17 00:00 102 16 111/76 (88) 99 100 05/09/17 23:09 100 100 05/09/17 22:57 16 100 Ventilator 100 05/09/17 22:57 99 Bag Valve 15.00 05/09/17 22:54 98.8 75 16 93/50 (64) 99 I/O 05/09/17 05/09/17 05/09/17 05/10/17 05/10/17 05/10/17 07:00 15:00 23:00 07:00 15:00 23:00 Intake Total 369 ml 160 ml Output Total 300 ml 375 ml Balance 69 ml -215 ml Intake Oral 0 ml IV Total 369 ml 100 ml Tube Feeding 0 ml Other 60 ml Output Urine Total 300 ml 375 ml Stool Total 0 ml Physical Exam GENERAL: Sedated, intubated SKIN: Warm and dry. HEAD: Normocephalic. EYES: No scleral icterus. No injection or drainage. NECK: Supple, trachea midline. No JVD or lymphadenopathy. CARDIOVASCULAR: Bradycardic 3/6 CORNELL NO gallops, or rubs. RESPIRATORY: Breath sounds equal bilaterally. No accessory muscle use. GASTROINTESTINAL: Abdomen soft, non-tender, nondistended. EXTREMITIES: No cyanosis, or edema. Laboratory Laboratory Tests Test 05/09/17 22:55 05/10/17 00:35 05/10/17 03:45 05/10/17 05:00 White Blood Count 11.3 TH/MM3 Red Blood Count 3.95 MIL/MM3 Hemoglobin 12.4 GM/DL Bedside Hemoglobin 12.2 G/DL Hematocrit 35.8 % Bedside Hematocrit 36.0 % Mean Corpuscular Volume 90.6 FL Mean Corpuscular Hemoglobin 31.5 PG Mean Corpuscular Hemoglobin Concent 34.8 % Red Cell Distribution Width 13.3 % Platelet Count 226 TH/MM3 Mean Platelet Volume 7.3 FL Neutrophils (%) (Auto) 40.2 % Lymphocytes (%) (Auto) 51.6 % Monocytes (%) (Auto) 5.7 % Eosinophils (%) (Auto) 1.8 % Basophils (%) (Auto) 0.7 % Neutrophils # (Auto) 4.5 TH/MM3 Lymphocytes # (Auto) 5.8 TH/MM3 Monocytes # (Auto) 0.6 TH/MM3 Eosinophils # (Auto) 0.2 TH/MM3 Basophils # (Auto) 0.1 TH/MM3 CBC Comment AUTO DIFF Differential Total Cells Counted 100 Neutrophils % (Manual) 41 % Lymphocytes % 47 % Monocytes % 8 % Eosinophils % 3 % Basophils % 1 % Neutrophils # (Manual) 4.6 TH/MM3 Differential Comment FINAL DIFF MANUAL Atypical Lymphocytes % Platelet Estimate NORMAL Platelet Morphology Comment NORMAL Prothrombin Time 12.7 SEC Prothromb Time International Ratio 1.1 RATIO Activated Partial Thromboplast Time 26.8 SEC Bedside Sodium 137 MMOL/L Bedside Potassium 3.9 MMOL/L Bedside Chloride 100 MMOL/L Bedside Blood Urea Nitrogen 17 MG/DL Bedside Creatinine 1.6 MG/DL Bedside Glucose 167 MG/DL Calcium Level 8.1 MG/DL Magnesium Level 2.0 MG/DL Total Creatine Kinase 83 U/L Troponin I 0.07 NG/ML 1.26 NG/ML B-Type Natriuretic Peptide 679 PG/ML Blood Gas Puncture Site RT RADIAL Blood Gas Patient Temperature 37.0 Blood Gas HCO3 18 mmol/L Blood Gas Base Excess -6.9 mmol/L Blood Gas Oxygen Saturation 99 % Arterial Blood pH 7.35 Arterial Blood Partial Pressure CO2 33 mmHg Arterial Blood Partial Pressure O2 325 mmHG Arterial Blood Oxygen Content 17.5 Vol % Arterial Blood Carboxyhemoglobin 0.9 % Arterial Blood Methemoglobin 0.6 % Blood Gas Hemoglobin 12.1 G/DL Oxygen Delivery Device VENTILATOR Blood Gas Ventilator Setting PRVC/AC Blood Gas Inspired Oxygen 100 % Nasal Screen MRSA (PCR) MRSA NOT DETECTED Test 05/10/17 10:20 White Blood Count 11.4 TH/MM3 Red Blood Count 4.18 MIL/MM3 Hemoglobin 12.9 GM/DL Hematocrit 38.4 % Mean Corpuscular Volume 92.0 FL Mean Corpuscular Hemoglobin 30.8 PG Mean Corpuscular Hemoglobin Concent 33.5 % Red Cell Distribution Width 13.6 % Platelet Count 230 TH/MM3 Mean Platelet Volume 7.3 FL Neutrophils (%) (Auto) 73.3 % Lymphocytes (%) (Auto) 17.9 % Monocytes (%) (Auto) 8.1 % Eosinophils (%) (Auto) 0.1 % Basophils (%) (Auto) 0.6 % Neutrophils # (Auto) 8.3 TH/MM3 Lymphocytes # (Auto) 2.0 TH/MM3 Monocytes # (Auto) 0.9 TH/MM3 Eosinophils # (Auto) 0.0 TH/MM3 Basophils # (Auto) 0.1 TH/MM3 CBC Comment DIFF FINAL Differential Comment Blood Urea Nitrogen 21 MG/DL Creatinine 1.79 MG/DL Random Glucose 207 MG/DL Calcium Level 8.5 MG/DL Sodium Level 133 MEQ/L Potassium Level 4.0 MEQ/L Chloride Level 100 MEQ/L Carbon Dioxide Level 22.0 MEQ/L Anion Gap 11 MEQ/L Estimat Glomerular Filtration Rate 37 ML/MIN Magnesium Level 1.9 MG/DL Troponin I 1.97 NG/ML Assessment and Plan Problem List: (1) Aortic stenosis, severe ICD Codes: I35.0 - Nonrheumatic aortic (valve) stenosis Plan: 76 y/o M with severe with depressed LV systolic function and 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 He was schedule for TAVR on 05/19/17. He sustained trauma to the Head. CT showing Hematoma. Heparin, ASA on hold. H&H stable. He remains afebrile on cooling protocol. Neurological status unknown, but there is mention of a seizures episode. Troponin elevated. Given patient acute decompensation TAVR will be put on hold. We will not pursue TAVR during this hospitalization. Regarding troponin elevation given his severe CAD is reasonable to believe that there has been progression of CAD, however given head hematoma, off Hep and ASA, and worsening renal function (MOUSTAPHA) he is not candidate for LHC at this time. Rewarming will start tomorrow. Prognosis guarded. Plan: 1. Continue supportive care per primary team 2. TAVR will be re-schedule pending of patients recovery. 3. Agree with starting Dopamine 4. Neurology Consult 5. Start ASA and Heparin when cleared from Neurology/Neurosurgery 6. Avoid electrolytes abnormalities Case discussed with Dr. Santos/editor producer and Nurse Staff (2) Diabetes ICD Codes: E11.9 - Type 2 diabetes mellitus without complications (3) Hypertension ICD Codes: I10 - Essential (primary) hypertension (4) Adjustment disorder with anxiety ICD Codes: F43.22 - Adjustment disorder with anxiety (5) Cardiopulmonary arrest with successful resuscitation ICD Codes: I46.9 - Cardiac arrest, cause unspecified Status: Acute ChatterjeeEleuterio Sepulveda MD May 10, 2017 14:32
[2017-05-10] MEDS ORDERED: NOREPINEPHRINE-DEXTROSE DRIP 250 ML IV ONE (14:49)
--- NOTE | 2017-05-10 15:04 | PD.CONS ---
Consult Service Palliative Care . Consult Requested By Dr. Clifford . Primary Care Physician Non-Staff . Reason for Consultation a. To assist with evaluation and management of symptoms including: pain, dyspnea. b. To assist medical decision maker(s) with: better understanding of current medical conditions; weighing benefits/burdens of medical treatment options; making medical treatment decisions. . HPI History of Present Illness Mr. Mtz is a 76 year old male with past medical history of severe CAD, hyperlipidemia, hypertension, type 2 diabetes, severe aortic stenosis, anxiety/ depression, arthritis, hyperlipidemia and OK in 2008. Patient was previously admitted 04/01/17 - 04/07/17 with severe CAD. aortic stenosis. He underwent cardiac catheterization by Dr. Chatterjee that revealed severe aortic stenosis, diastolic dysfunction, severe CAD with 3/4 grafts patent. 04/03/17 echocardiogram revealed moderate to severe mitral dusty regurgitation, mild to moderate aortic valve regurgitation and severe aortic stenosis. 04/05/17 PFT normal with no obstructive or restrictive disease. Patient presented to [facility] ER on 05/09/17 after he collapsed in front of his . She started CPR. Upon EMS arrival the patient was unresponsive with agonal respirations. He was found in ventricular fibrillation and was defibrillated. The patient was given epinephrine 1 mg IV, 1 amp of bicarbonate, initial blood pressure was then 130/90. The patient on arrival was noted to be moving his extremities however non-purposely. The patient had no gag reflex or cough. Cardiology, Dr. Rose was consulted. Patient was deemed not to be a candidate for emergent cardiac catheterization and due to poor neurological exam. He was considered a candidate for therapeutic hypothermia. According to nurse, patient reached cooling goal temperature at 9:30am this morning. Neurology has been consulted. CT head revealed small 5mm hematoma right frontal lobe without mass effect and age related atrophy. Plan to repeat CT head . Discussed with Dr. Santos. Patient condition deteriorating, hypotensive despite being maxed out on multiple pressors. He spoke with and she has elected NO CODE. Hypothermia and Nimbex has been discontinued due to decline. Palliative care was consulted to assist with communication and clarification of treatment goals in the coming days. . Function/Cognitive Trajectory reports significant decline over the past few months, he has been sleeping more during the day. He has been less active. . Review of Systems ROS Limitations: Intubated (ROS per report) Constitutional: COMPLAINS OF: Fatigue, Change in appetite (decreased), Generalized weakness Respiratory: COMPLAINS OF: Shortness of breath Cardiovascular: COMPLAINS OF: Dyspnea on Exertion Hematologic/Lymphatics: COMPLAINS OF: Bruising Psychiatric: COMPLAINS OF: Anxiety, Depression Past Family Social History Coded Allergies: Sulfa (Sulfonamide Antibiotics) (Verified Allergy, Severe, Hives, 04/01/17 ) hydrocodone (Verified Adverse Reaction, Severe, Hallucinations, 04/01/17) metoprolol (Verified Adverse Reaction, Severe, Joint Pain, 04/01/17) niacin (Verified Adverse Reaction, Severe, Chest Pain, 04/01/17) potassium chloride (Verified Adverse Reaction, Severe, Chest Pain, ) Beyecal-Wol-Ynz Reductase Inhibitor (Verified Adverse Reaction, Intermediate, Dehydration, 04/01/17) amlodipine (Verified Adverse Reaction, Intermediate, Joint Pain, 04/01/17) cholecalciferol (vitamin D3) (Verified Adverse Reaction, Unknown, 04/01/17 ) Uncoded Allergies: MULTIVITAMIN (Adverse Reaction, Intermediate, Migraine, 04/01/17) Past Medical History Severe CAD Severe aortic stenosis Hypertension Type 2 Diabetes Anxiety Depression Prior OK Arthritis Hyperlipidemia . Past Surgical History CABG x 4 (1995) Cardiac catheterization . Reported Medications Reported Meds & Active Scripts Active Potassium Chloride ER (Potassium Chloride) 20 Meq Tab 20 Meq PO DAILY Lasix (Furosemide) 20 Mg Tab 20 Mg PO BID Isosorbide Mononitrate ER (Isosorbide Mononitrate) 30 Mg Aubree 30 Mg PO DAILY@ 07 30 Days Ranexa ER 12 HR (Ranolazine) 500 Mg Tab 500 Mg PO Q12HR 30 Days Reported Clonazepam 0.5 Mg Tab 0.5 Mg PO BID Nitroglycerin SL (Nitroglycerin) 0.4 Mg Subl 0.4 Mg SL DIRECTED PRN ONE TABLET UNDER THE TONGUE NEEDED FOR CHEST PAIN, MAY REPEAT EVERY FIVE MINUTES FOR A TOTAL OF 3 DOSES OR CALL 911 IF NO RELIEF Mapap (Acetaminophen) 500 Mg Tab 500 Mg PO Q4-6H PRN Sennosides 8.6 Mg Tab 8.6 Mg PO BID Enalapril (Enalapril Maleate) 20 Mg Tab 20 Mg PO DAILY Aspirin 81 Mg Chew 81 Mg CHEW DAILY Verapamil (Verapamil HCl) 80 Mg Tab 80 Mg PO BID Metformin (Metformin HCl) 1,000 Mg Tab 1,000 Mg PO HS Plavix (Clopidogrel Bisulfate) 75 Mg Tab 75 Mg PO HS . Current Medications Medications (Trade) Dose Ordered Sig/Chika Route Start Time Stop Time Status Last Admin Nitroglycerin/ Dextrose 250 ml @ 3 mls/hr TITRATE PRN IV 05/09/17 23:00 (Aspirin Chew) 81 mg DAILY CHEW 05/10/17 09:00 (KlonoPIN) 0.5 mg BID PO 05/10/17 09:00 05/10/17 09:34 (Plavix) 75 mg HS PO 05/10/17 21:00 (Vasotec) 20 mg DAILY PO 05/10/17 09:00 05/10/17 09:34 (Lasix) 20 mg BID PO 05/10/17 09:00 05/10/17 09:25 (Imdur) 30 mg DAILY@07 PO 05/10/17 07:00 (Ranexa) 500 mg Q12HR PO 05/10/17 09:00 (Isoptin) 80 mg BID PO 05/10/17 09:00 05/10/17 10:48 Amiodarone HCl 450 mg/Dextrose 250 ml @ 33.33 mls/ hr Q7H31M PRN IV 05/10/17 00:47 05/10/17 02:08 (Heparin Inj) 5,000 units UNSCH PRN IV PUSH 05/10/17 06:45 (Heparin Inj) 2,500 units UNSCH PRN IV PUSH 05/10/17 06:45 Heparin Sodium/ Dextrose 250 ml @ 9 mls/hr TITRATE PRN IV 05/10/17 00:45 (NS Flush) 2 ml UNSCH PRN IV FLUSH 05/10/17 00:45 (NS Flush) 2 ml BID IV FLUSH 05/10/17 09:00 05/10/17 09:35 (Tylenol) 650 mg Q6H PRN PO 05/10/17 00:45 (Morphine Inj) 2 mg Q2H PRN IV PUSH 05/10/17 00:45 05/10/17 09:25 (Versed Inj) 2 mg Q1H PRN IV PUSH 05/10/17 00:45 (Tears Naturale Opth Soln) 1 drop TID EACH EYE 05/10/17 09:00 05/10/17 12:15 (Zofran Inj) 4 mg Q6H PRN IV PUSH 05/10/17 00:45 (Duoneb Neb) 1 ampule Q2HR NEB PRN INH 05/10/17 00:45 Miscellaneous Information 1 Q361D XX 05/10/17 00:45 (Chlorhexidine 2% Cloth) 3 pack Taper DAILY@04 TOP 05/10/17 04:00 05/06/18 03:59 05/10/17 04:00 (Chlorhexidine 2% Cloth) 3 pack UNSCH PRN TOP 05/10/17 00:45 (Aminata-Colace) 1 tab BID PO 05/10/17 09:00 (Milk Of Magnesia Liq) 30 ml Q12H PRN PO 05/10/17 00:45 (Senokot) 17.2 mg Q12H PRN PO 05/10/17 00:45 (Dulcolax Supp) 10 mg DAILY PRN RECTAL 05/10/17 00:45 (Lactulose Liq) 30 ml DAILY PRN PO 05/10/17 00:45 (D50w (Vial) Inj) 50 ml UNSCH PRN IV PUSH 05/10/17 00:45 (Glucagon Inj) 1 mg UNSCH PRN OTHER 05/10/17 00:45 (NovoLOG SUPPLEMENTAL SCALE) 1 ACHS SLIDING SCALE SQ 05/10/17 08:00 05/10/17 12:00 (Peridex 0.12% Liq) 15 ml BID@08,20 MT 05/10/17 08:00 05/10/17 09:35 Propofol 100 ml @ 2.31 mls/hr TITRATE PRN IV 05/10/17 01:45 05/10/17 14:09 Cisatracurium Besylate 100 mg/ Sodium Chloride 260 ml @ 13.33 mls/ hr TITRATE PRN IV 05/10/17 09:15 05/10/17 09:09 (Pepcid Inj) 10 mg Q12HR IV PUSH 05/10/17 21:00 (Brethine Inj) 1 mg UNSCH PRN SQ 05/10/17 14:15 Dopamine HCl/ Dextrose 500 ml @ 9.619 mls/ hr TITRATE PRN IV 05/10/17 14:30 (Brethine Inj) 1 mg UNSCH PRN SQ 05/10/17 14:30 Family History Mother from hear disease at 82. Father from emphysema. . Substance Use Tobacco: Smoked for 20 years, quit in 1982. Alcohol: Occasional social alcohol use. Prescription med abuse: None. Illicits: None. . Psychosocial History to Beatriz for 15 years together for 20. He has 2 sons and 1 daughter. has 2 local daughters, who he was like a father to. 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 He was in the [employer] for a total of 6 years. He is described as a good man with a great sense of humor. . Spiritual/Cultural Factors Previously described voodoo beliefs as "what goes around comes around' to psych during last admission. . Living Will: Never completed Health Care Surrogate: Never completed Durable Power of [employer] System Operator: Never completed Health Care Surrogate(s): Patient is incapacitated, unlikely he will regain capacity. No written advanced directives. According to [place] statutes, health care proxy decision making falls to his spouse (Beatriz Mtz). . Documented care wishes: Spouse reports patient did not want to be kept alive by tubes are machines, did not want to live in a mcfp under any circumstances. . Today's verbally stated goals: Patient is incapacitated, unlikely he will regain capacity. . Family/friends goals: has elected NO CODE status. Will further clarify goals if patient survives overnight. . Ethical and Legal Issues Patient is incapacitated, unlikely he will regain capacity. No written advanced directives. According to [place] statutes, health care proxy decision making falls to his spouse (Beatriz Mtz). . Physical Exam Vital Signs Date Time Temp Pulse Resp B/P (MAP) Pulse Ox O2 Delivery O2 Flow Rate FiO2 05/10/17 13:09 100 50 05/10/17 12:00 41 05/10/17 11:00 46 05/10/17 11:00 90.1 46 16 137/76 (96) 100 149/74 (99) 05/10/17 10:23 100 50 05/10/17 10:00 90.1 50 13 164/88 (113) 100 176/86 (116) 05/10/17 10:00 50 05/10/17 09:30 91.4 52 16 191/96 (127) 100 05/10/17 09:00 91.4 48 16 115/68 (84) 100 137/72 (93) 05/10/17 09:00 48 05/10/17 08:30 48 16 129/72 (91) 100 05/10/17 08:10 50 134/82 05/10/17 08:00 96.6 52 18 99/64 (76) 100 124/78 (93) 05/10/17 08:00 52 05/10/17 07:45 55 05/10/17 07:45 55 122/67 05/10/17 07:30 100 50 05/10/17 07:30 60 05/10/17 07:15 65 05/10/17 07:00 99.3 62 20 105/67 (80) 99 05/10/17 07:00 66 05/10/17 07:00 62 05/10/17 06:00 66 05/10/17 04:26 100 50 05/10/17 04:00 70 05/10/17 03:31 100.0 72 22 103/71 (82) 100 05/10/17 02:20 100 100 05/10/17 02:08 86 107/72 05/10/17 02:00 99 100 05/10/17 02:00 89 16 107/74 (85) 97 100 05/10/17 01:12 101 148/88 05/10/17 01:00 111 16 104/88 (93) 92 100 05/10/17 00:45 100 50 05/10/17 00:00 102 16 111/76 (88) 99 100 05/09/17 23:09 100 100 05/09/17 22:57 16 100 Ventilator 100 05/09/17 22:57 99 Bag Valve 15.00 05/09/17 22:54 98.8 75 16 93/50 (64) 99 05/10/17 05/11/17 19:00 07:00 Intake Total 160 ml Output Total 375 ml Balance -215 ml IV Total 100 ml Other 60 ml Output Urine Total 375 ml Exam CONSTITUTIONAL/GENERAL: This is an adequately nourished patient, paralyzed, intubated on mechanical ventilation. TUBES/LINES/DRAINS: ETT, OG, PIV times 3, a line, cooling catheter groin, bilateral soft wrist restraints, Peralta catheter. SKIN: No jaundice, rashes, or lesions. Ecchymoses on upper extremities. No wounds seen anteriorly. Skin temperature cool. HEAD: Atraumatic. Normocephalic. EYES: Pupils pinpoint, nonreactive. No scleral icterus. No injection or drainage. ENT: Hard of hearing, wears hearing aids. Nose without bleeding or purulent drainage. Throat difficult to visualize secondary to tubes. NECK: Trachea midline. CARDIOVASCULAR: bradycardia, rate 39. Systolic murmur noted. RESPIRATORY/CHEST: Symmetric, unlabored respirations on mechanical ventilation. Diminished breath sounds. GASTROINTESTINAL: Abdomen soft, nondistended. GENITOURINARY: Without palpable bladder distension. Peralta catheter in place. MUSCULOSKELETAL: Extremities without clubbing, cyanosis, or edema. + mottling bilateral feet. LYMPHATICS: No palpable cervical or supraclavicular adenopathy. NEUROLOGICAL: Sedated, paralyzed. PSYCHIATRIC: sedated. . Diagnostic Tests Laboratory Laboratory Tests Test 05/09/17 22:55 05/10/17 00:35 05/10/17 03:45 05/10/17 05:00 White Blood Count 11.3 TH/MM3 (4.0-11.0) Red Blood Count 3.95 MIL/MM3 (4.50-5.90) Hemoglobin 12.4 GM/DL (13.0-17.0) Bedside Hemoglobin 12.2 G/DL (12.0-17.0) Hematocrit 35.8 % (39.0-51.0) Bedside Hematocrit 36.0 % (38.0-51.0) Mean Corpuscular Volume 90.6 FL (80.0-100.0) Mean Corpuscular Hemoglobin 31.5 PG (27.0-34.0) Mean Corpuscular Hemoglobin Concent 34.8 % (32.0-36.0) Red Cell Distribution Width 13.3 % (11.6-17.2) Platelet Count 226 TH/MM3 (150-450) Mean Platelet Volume 7.3 FL (7.0-11.0) Neutrophils (%) (Auto) 40.2 % (16.0-70.0) Lymphocytes (%) (Auto) 51.6 % (9.0-44.0) Monocytes (%) (Auto) 5.7 % (0.0-8.0) Eosinophils (%) (Auto) 1.8 % (0.0-4.0) Basophils (%) (Auto) 0.7 % (0.0-2.0) Neutrophils # (Auto) 4.5 TH/MM3 (1.8-7.7) Lymphocytes # (Auto) 5.8 TH/MM3 (1.0-4.8) Monocytes # (Auto) 0.6 TH/MM3 (0-0.9) Eosinophils # (Auto) 0.2 TH/MM3 (0-0.4) Basophils # (Auto) 0.1 TH/MM3 (0-0.2) CBC Comment AUTO DIFF Differential Total Cells Counted 100 Neutrophils % (Manual) 41 % (16-70) Lymphocytes % 47 % (9-44) Monocytes % 8 % (0-8) Eosinophils % 3 % (0-4) Basophils % 1 % (0-2) Neutrophils # (Manual) 4.6 TH/MM3 (1.8-7.7) Differential Comment FINAL DIFF MANUAL Atypical Lymphocytes % (0-0) Platelet Estimate NORMAL (NORMAL) Platelet Morphology Comment NORMAL (NORMAL) Prothrombin Time 12.7 SEC (9.8-11.6) Prothromb Time International Ratio 1.1 RATIO Activated Partial Thromboplast Time 26.8 SEC (24.3-30.1) Bedside Sodium 137 MMOL/L (138-146) Bedside Potassium 3.9 MMOL/L (3.5-4.9) Bedside Chloride 100 MMOL/L (98-109) Bedside Blood Urea Nitrogen 17 MG/DL (8-26) Bedside Creatinine 1.6 MG/DL (0.8-1.3) Bedside Glucose 167 MG/DL (60-95) Calcium Level 8.1 MG/DL (8.5-10.1) Magnesium Level 2.0 MG/DL (1.5-2.5) Total Creatine Kinase 83 U/L (39-308) Troponin I 0.07 NG/ML (0.02-0.05) 1.26 NG/ML (0.02-0.05) B-Type Natriuretic Peptide 679 PG/ML (0-100) Blood Gas Puncture Site RT RADIAL Blood Gas Patient Temperature 37.0 Blood Gas HCO3 18 mmol/L (22-26) Blood Gas Base Excess -6.9 mmol/L (-2-2) Blood Gas Oxygen Saturation 99 % (90-100) Arterial Blood pH 7.35 (7.380-7.420) Arterial Blood Partial Pressure CO2 33 mmHg (38-42) Arterial Blood Partial Pressure O2 325 mmHG (61-120) Arterial Blood Oxygen Content 17.5 Vol % (12.0-20.0) Arterial Blood Carboxyhemoglobin 0.9 % (0-4) Arterial Blood Methemoglobin 0.6 % (0-2) Blood Gas Hemoglobin 12.1 G/DL (12.0-16.0) Oxygen Delivery Device VENTILATOR Blood Gas Ventilator Setting PRVC/AC Blood Gas Inspired Oxygen 100 % Nasal Screen MRSA (PCR) MRSA NOT DETECTED (NOT Test 05/10/17 10:20 White Blood Count 11.4 TH/MM3 (4.0-11.0) Red Blood Count 4.18 MIL/MM3 (4.50-5.90) Hemoglobin 12.9 GM/DL (13.0-17.0) Hematocrit 38.4 % (39.0-51.0) Mean Corpuscular Volume 92.0 FL (80.0-100.0) Mean Corpuscular Hemoglobin 30.8 PG (27.0-34.0) Mean Corpuscular Hemoglobin Concent 33.5 % (32.0-36.0) Red Cell Distribution Width 13.6 % (11.6-17.2) Platelet Count 230 TH/MM3 (150-450) Mean Platelet Volume 7.3 FL (7.0-11.0) Neutrophils (%) (Auto) 73.3 % (16.0-70.0) Lymphocytes (%) (Auto) 17.9 % (9.0-44.0) Monocytes (%) (Auto) 8.1 % (0.0-8.0) Eosinophils (%) (Auto) 0.1 % (0.0-4.0) Basophils (%) (Auto) 0.6 % (0.0-2.0) Neutrophils # (Auto) 8.3 TH/MM3 (1.8-7.7) Lymphocytes # (Auto) 2.0 TH/MM3 (1.0-4.8) Monocytes # (Auto) 0.9 TH/MM3 (0-0.9) Eosinophils # (Auto) 0.0 TH/MM3 (0-0.4) Basophils # (Auto) 0.1 TH/MM3 (0-0.2) CBC Comment DIFF FINAL Differential Comment Blood Urea Nitrogen 21 MG/DL (7-18) Creatinine 1.79 MG/DL (0.60-1.30) Random Glucose 207 MG/DL (74-106) Calcium Level 8.5 MG/DL (8.5-10.1) Sodium Level 133 MEQ/L (136-145) Potassium Level 4.0 MEQ/L (3.5-5.1) Chloride Level 100 MEQ/L (98-107) Carbon Dioxide Level 22.0 MEQ/L (21.0-32.0) Anion Gap 11 MEQ/L (5-15) Estimat Glomerular Filtration Rate 37 ML/MIN (>89) Magnesium Level 1.9 MG/DL (1.5-2.5) Troponin I 1.97 NG/ML (0.02-0.05) Result Diagram: 05/10/17 1020 05/10/17 1020 Microbiology Microbiology Date/Time Source Procedure Growth Status 05/10/17 05:00 Sputum Endotracheal Gram Stain Pending Received 05/10/17 05:00 Sputum Endotracheal Sputum Culture Pending Received Imaging * CT head small 5 mm hematoma right frontal lobe without mass effect, age- related atrophy. * Chest x-ray cardiomegaly, prominence of central interstitial markings due to pulmonary venous hypertension versus mild edema, pleural calcifications. . Procedures * 05/09/17 - intubated and cooling catheter placed Patient/Family Conference Present at Family Conference: Met with patient's at bedside. Family Conference Time (mins): 45 Family Conference Location: Bedside Issues Discussed: * Palliative care role, purpose, approach * Additional medical, psychosocial, and spiritual history * Patients general health, functional status, and cognitive changes in the months leading up to the current hospitalization * Patient/family understanding of the current medical problems * Patient/family understanding of prognosis * Patients goals of care as best understood from advance directives and/or conversations and/or values * Current medical treatment options and benefits/burdens of those options * Likely scenarios comparing ongoing aggressive care with a transition to comfort measures only * Questions answered to the best of my ability * Palliative care contact information provided In summary, elects NO CODE status. She reports that she"lost her yesterday." She indicates that the patient had a feeling that something bad was going to happen in the past few days. Offered time for life review. Will further clarify treatment goals if patient survives overnight. has a good understanding of overall poor prognosis and significant decline in status over the past few hours. . Assessment and Plan Disease Oriented Problem List: (1) Cardiopulmonary arrest with successful resuscitation (2) Aortic stenosis, severe (3) Hypertension (4) Diabetes Symptom Scale: (1) Pain 0-10 Scale: Unable to quantify (2) Dyspnea 0-10 Scale: Unable to quantify Pertinent Non-Medical Issues Psychosocial: . Has 2 sons, one daughter into stepdaughters. 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 Spiritual: Previously described voodoo beliefs as "what goes around comes around' to psych during last admission. Legal:Patient is incapacitated, unlikely he will regain capacity. No written advanced directives. According to [place] statutes, health care proxy decision making falls to his spouse (Beatriz Mtz). Ethical issues impacting care: No known concerns at this time. . Important Contacts * Beatriz Mtz, /HCP: [phone] . Prognosis Patient with severe aortic stenosis, now maxed out on multiple pressors port V. Fib arrest. Condition is declining, prognosis appears poor. . Code Status: No Code Plan * Decision Maker: Patient is incapacitated, unlikely he will regain capacity. No written advanced directives. According to [place] statutes, health care proxy decision making falls to his spouse (Beatriz Mtz). * NO CODE * Palliative care met with , she has elected NO CODE. She verbalizes "I lost him yesterday." Nimbex and hypothermic have been discontinued due to declining status, maxed out on multiple pressors. Will further clarify goals if patient survives overnight. * SYMPTOMS: Pain: patient with severe aortic stenosis, severe coronary artery disease status post V fib arrest, intubated on mechanical ventilation. Nimbex recently discontinued, therefore no signs of pain. Will continue to monitor. Dyspnea: remains on mechanical ventilation. No new medication recommendations at this time. * Palliative care number provided. * Palliative care will continue to follow throughout hospital course to assist with symptom management and clarification of goals as needed. . Thank you for the opportunity to participate in the care of Mr. Mtz. Attestation To help prompt me to consider important information that might be impacting today's encounter and assessment, information from prior notes written by myself or my colleagues may have been "brought forward" into today's note. My signature on this note, however, is an attestation that I personally performed the exam, history, and/or decision-making noted today, and, unless otherwise indicated, the interactions with patient, family, and staff as well as the review of records all occurred today. I also attest that the listed assessment and stated plan reflect my best clinical judgment today based on the combination of historical information, prior notes, and today's exam/ interactions. When time spent is documented, it refers only to time spent today by the signer, or if indicated, combined time spent today by collaborating physician/nurse practitioner. [place] May 10, 2017 15:04
[2017-05-10] MEDS: EPINEPHrine (1:1000) INJ 2 MG in DEXTROSE 5% IN WATER INJ 250 ML IV PRN ×4 (15:19→20:58)
--- NOTE | 2017-05-10 15:30 | HHI.CCPN ---
Subjective Remarks/Hospital Course 05/09: 76 year old male presents after collapsing in front of his prior to arrival. She reportedly started CPR on the patient and ambulance services were called. Ambulance services arrived approximately 3 minutes after the call as they were nearby. They found the patient unresponsive with agonal respiratory effort. The patient's initial rhythm was ventricular fibrillation. The patient was defibrillated and intraosseous access was placed in the right fuller. The patient was given epinephrine 1 mg IV, 1 amp of bicarbonate, initial blood pressure was then 130/90. The patient on arrival is noted to be moving his extremities however non-purposely. The patient has no gag reflex and an oropharyngeal airway in place. He was evaluated by global ceo decision science analyst as he has known severe coronary artery disease, status post CABG in 1995, now with the occlusive lesions in the graft vessels. Patient is not a candidate for emergent cardiac catheterization and due to poor neurological exam he is considered a candidate for therapeutic hypothermia. 05/10: Patient on therapeutic hypothermia protocol. Developed bradycardia and worsening hypotension for which she was started on dopamine followed by Levophed and is now being initiated on epinephrine drip. 1 L normal saline bolus ordered. Discussed with Dr. Chatterjee earlier. Patient's elected to change CODE STATUS to DNR in case of a cardiac arrest. Objective Vital Signs Date Time Temp Pulse Resp B/P (MAP) Pulse Ox O2 Delivery O2 Flow Rate FiO2 05/10/17 14:49 78 72/46 05/10/17 13:09 100 50 05/10/17 11:00 90.1 16 05/09/17 22:57 Ventilator 05/09/17 22:57 15.00 Intake and Output 05/10/17 05/10/17 05/11/17 08:00 16:00 00:00 Intake Total 369 ml 160 ml Output Total 335 ml 390 ml Balance 34 ml -230 ml Result Diagram: 05/10/17 1020 05/10/17 1020 Other Results Laboratory Tests Test 05/10/17 00:35 Blood Gas Puncture Site RT RADIAL Blood Gas Patient Temperature 37.0 Blood Gas HCO3 18 mmol/L (22-26) Blood Gas Base Excess -6.9 mmol/L (-2-2) Blood Gas Oxygen Saturation 99 % (90-100) Arterial Blood pH 7.35 (7.380-7.420) Arterial Blood Partial Pressure CO2 33 mmHg (38-42) Arterial Blood Partial Pressure O2 325 mmHG (61-120) Arterial Blood Oxygen Content 17.5 Vol % (12.0-20.0) Arterial Blood Carboxyhemoglobin 0.9 % (0-4) Arterial Blood Methemoglobin 0.6 % (0-2) Blood Gas Hemoglobin 12.1 G/DL (12.0-16.0) Oxygen Delivery Device VENTILATOR Blood Gas Ventilator Setting PRVC/AC Blood Gas Inspired Oxygen 100 % Imaging Last Impressions Head CT 05/10/17 0000 Signed Impressions: Service Date/Time: Wednesday, May 10, 2017 02:05 - CONCLUSION: 1. Possible small 5 mm hematoma in the right frontal lobe without mass effect. 2. Age-related atrophy. Jez Sheehan MD Chest X-Ray 05/09/17 2258 Signed Impressions: Service Date/Time: Tuesday, May 09, 2017 23:20 - CONCLUSION: 1. Cardiomegaly 2. Prominence of the central interstitial markings related to pulmonary venous hypertension versus mild edema. 3. ET tube and NG tube are well placed. 4. Pleural calcifications. Jez Sheehan MD Objective Remarks GENERAL: Elderly appearing man sedated, on neuromuscular blockade and intubated SKIN: Warm and dry. HEAD: Normocephalic. EYES: No scleral icterus. No injection or drainage. NECK: Supple, trachea midline. No JVD or lymphadenopathy. CARDIOVASCULAR: Regular rate and rhythm without murmurs, gallops, or rubs. RESPIRATORY: Orally intubated on mechanical ventilation, good air entry bilaterally, no wheezing or crackles GASTROINTESTINAL: Abdomen soft, non-tender, nondistended. MUSCULOSKELETAL: No cyanosis, or edema. BACK: Nontender without obvious deformity. 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 Hold anticoagulation and antiplatelet therapy. Stopping hypothermia protocol in view of worsening hemodynamic instability. Respiratory failure - Intubated for an airway protection - No weaning until neurologically improved - Vent bundle - DuoNeb's when necessary - Assist-volume control mode - ABG and CXR daily while intubated Cardiac arrest - Status post V. fib arrest - Severe coronary artery disease/ severe aortic stenosis, not a candidate for cardiac catheterization due to known lesions and no possible intervention - Heparin drip not started in view of CT head with possibility of small area of hemorrhage. - Amiodarone drip held in view of bradycardia. - Hold heparin and updated therapy in view of abnormal head CT. - Therapeutic hypothermia being stopped in view of worsening hypotension and bradycardia for which patient has been started on dopamine/Levophed/epinephrine drip and is receiving a fluid bolus. - 2-D echo - Further management per cardiology. Discussed with Dr. Chatterjee earlier Diabetes - Hold metformin - Insulin sliding scale Severe aortic valve stenosis - Patient was supposed to undergo TAVR procedure - Conservative management until hemodynamically and neurologically improved DVT GI prophylaxis - Teds SCDs - Pepcid Consulted palliative care to assist with deciding goals of therapy. Discussed with patient's at bedside. She tells me that patient never wanted CPR or aggressive care and wishes to change CODE STATUS to DNR in view of worsening hemodynamic instability. Prognosis appears extremely poor. Critical Care: The total critical care time was 45 minutes. Time to perform other separately billable procedures was not included in the critical care time. Edward Santos MD May 10, 2017 15:29
[2017-05-10 15:35] LABS: APTT (PATIENT) 33.1 SEC (24.3-30.1)
[2017-05-10 15:57] LABS: AUTOMATED NEUTROPHIL # 9.2 TH/MM3 (1.8-7.7); BASOPHIL % 0.4 % (0.0-2.0); HEMATOCRIT 37.6 % (39.0-51.0); HEMO FLAGS DIFF FINAL; LYMPH % 12.9 % (9.0-44.0); LYMPHOCYTE # 1.6 TH/MM3 (1.0-4.8); MEAN CELL VOLUME 90.7 FL (80.0-100.0); MEAN CORPUSCULAR HEMOGLOBIN 30.6 PG (27.0-34.0); MEAN CORPUSCULAR HGB CONC 33.8 % (32.0-36.0); MONO % 10.9 % (0.0-8.0); NEUT % 75.8 % (16.0-70.0); PLATELET COUNT 243 TH/MM3 (150-450); RED BLOOD COUNT 4.15 MIL/MM3 (4.50-5.90); RED CELL DISTRIBUTION WIDTH 13.6 % (11.6-17.2); WHITE BLOOD COUNT 12.1 TH/MM3 (4.0-11.0)
[2017-05-10 16:30] LABS: ALT (GPT) 106 U/L (12-78); ANION GAP 11 MEQ/L (5-15); AST (GOT) 89 U/L (15-37); BICARBONATE 19.9 MEQ/L (21.0-32.0); BLOOD UREA NITROGEN 23 MG/DL (7-18); CHLORIDE 101 MEQ/L (98-107); GLOMERULAR FILTRATION RATE 35 ML/MIN (>89); SODIUM (NA) 132 MEQ/L (136-145)
[2017-05-10 16:34] LABS: ALKALINE PHOSPHATASE 78 U/L (45-117); TOTAL BILIRUBIN ADULT 0.8 MG/DL (0.2-1.0)
[2017-05-10] MEDS ORDERED: MORPHINE SULFATE 4 MG/ML INJ IV PRN ×2 (17:30→17:45)
[2017-05-10] MEDS ORDERED: MEPERIDINE HCL 25 MG/ML VIAL IV PRN (17:45)
[2017-05-10] MEDS: NOREPINEPHRINE 4 MG/D5W 250 ML IV PRN (19:48)
[2017-05-10] MEDS ORDERED: CLOPIDOGREL 75 MG TAB PO SCH (21:00)
[2017-05-11] VITALS (8 sets, daily range): BP systolic 98–116; BP diastolic 56–75; PULSE 64–100; RESP 23–30; O2SAT 99–100
[2017-05-11] MEDS: MIDAZOLAM HCL 2 MG/2 ML VIAL IV PUSH PRN ×2 (01:17→02:39)
[2017-05-11] MEDS: NOREPINEPHRINE 4 MG/D5W 250 ML IV PRN (01:22)
[2017-05-11] MEDS: PROPOFOL 1000 MG/100 ML INJ 100 ML IV PRN (01:22)
[2017-05-11] MEDS ORDERED: ACETAMINOPHEN 1000 MG/100 ML 100 ML IV SCH (02:00)
[2017-05-11] MEDS: CHLORHEXIDINE GLUCONATE 2 % 1 PACK (2 CLOTHS) TOP SCH (04:00)
[2017-05-11 05:21] LABS: AUTOMATED NEUTROPHIL # 13.6 TH/MM3 (1.8-7.7); BASOPHIL % 0.2 % (0.0-2.0); HEMATOCRIT 36.6 % (39.0-51.0); HEMO FLAGS DIFF FINAL; LYMPH % 7.4 % (9.0-44.0); LYMPHOCYTE # 1.2 TH/MM3 (1.0-4.8); MEAN CELL VOLUME 88.8 FL (80.0-100.0); MEAN CORPUSCULAR HEMOGLOBIN 31.2 PG (27.0-34.0); MEAN CORPUSCULAR HGB CONC 35.2 % (32.0-36.0); MONO % 9.6 % (0.0-8.0); NEUT % 82.8 % (16.0-70.0); PLATELET COUNT 242 TH/MM3 (150-450); RED BLOOD COUNT 4.12 MIL/MM3 (4.50-5.90); RED CELL DISTRIBUTION WIDTH 13.3 % (11.6-17.2); WHITE BLOOD COUNT 16.4 TH/MM3 (4.0-11.0)
[2017-05-11 05:46] LABS: ALT (GPT) 100 U/L (12-78); ANION GAP 14 MEQ/L (5-15); AST (GOT) 224 U/L (15-37); BICARBONATE 15.8 MEQ/L (21.0-32.0); BLOOD UREA NITROGEN 27 MG/DL (7-18); CHLORIDE 100 MEQ/L (98-107); GLOMERULAR FILTRATION RATE 22 ML/MIN (>89); MAGNESIUM 1.6 MG/DL (1.5-2.5); POTASSIUM 4.3 MEQ/L (3.5-5.1); SODIUM (NA) 130 MEQ/L (136-145)
[2017-05-11 05:49] LABS: ALKALINE PHOSPHATASE 74 U/L (45-117)
[2017-05-11] MEDS: ISOSORBIDE MONONITRATE 30 MG TAB PO SCH (06:58)
--- NOTE | 2017-05-11 08:49 | DEATH SUM ---
Summary Demographics Date Pronounced : May 11, 2017 Time Of : 08:44 Pronounced By: Edward Santos MD Preliminary Cause of : Cardiac arrest Edward Santos MD May 11, 2017 08:49
== END 2017-05-11 08:44 | disposition expired | DRG 208 ==
LOC: NEPC 22:52 → NEDA 23:59 → HIME 05-10 02:20
PROVIDERS: ADMIT Internal Medicine Critical Care Medicine; ATTEND Internal Medicine Critical Care Medicine
PROC: 5A1945Z Respiratory Ventilation, 24-96 Consecutive Hours (ICD-10-PCS; principal; 2017-05-09)
PROC: 0BH17EZ Insertion of Endotracheal Airway into Trachea, Via Natural or Artificial Opening (ICD-10-PCS; 2017-05-09)
PROC: 6A4Z0ZZ Hypothermia, Single (ICD-10-PCS; 2017-05-09)
DX: J96.91 Respiratory failure, unspecified with hypoxia (principal); I49.01 Ventricular fibrillation; I61.1 Nontraumatic intracerebral hemorrhage in hemisphere, cortical; N17.9 Acute kidney failure, unspecified; G93.1 Anoxic brain damage, not elsewhere classified; Z51.5 Encounter for palliative care; I95.9 Hypotension, unspecified; I42.9 Cardiomyopathy, unspecified; I25.82 Chronic total occlusion of coronary artery; I25.810 Atherosclerosis of coronary artery bypass graft(s) without angina pectoris; E11.9 Type 2 diabetes mellitus without complications; I46.2 Cardiac arrest due to underlying cardiac condition; I25.10 Atherosclerotic heart disease of native coronary artery without angina pectoris; M19.90 Unspecified osteoarthritis, unspecified site; I10 Essential (primary) hypertension; I25.2 Old myocardial infarction; E78.5 Hyperlipidemia, unspecified; I08.0 Rheumatic disorders of both mitral and aortic valves; R40.2432 Glasgow coma scale score 3-8, at arrival to emergency department; H91.90 Unspecified hearing loss, unspecified ear; F32.9 Major depressive disorder, single episode, unspecified; F41.9 Anxiety disorder, unspecified; F43.22 Adjustment disorder with anxiety; Z66 Do not resuscitate; Z79.84 Long term (current) use of oral hypoglycemic drugs; Z87.891 Personal history of nicotine dependence; Z88.2 Allergy status to sulfonamides; Z88.5 Allergy status to narcotic agent; Z95.1 Presence of aortocoronary bypass graft; Z95.5 Presence of coronary angioplasty implant and graft
CPT/HCPCS: 31500; 36556; 36600; 36620; 43753; 51702; 70450; 71010; 76937; 80048; 80053; 82310; 82435; 82550; 82565; 82805; 82947; 83605; 83735; 83880; 84100; 84132; 84295; 84484; 84520; 85007; 85025; 85027; 85610; 85730; 87070; 87205; 87641; 93005; 94002; 94003; 96365; 96375; J0131; J0171; J0282; J0330; J1265; J1644; J1815; J1940; J2175; J2250; J2270; J7030; J7050; J7060